=== PATIENT | male | born 1930 | race Caucasian/White ===

== ENCOUNTER 2019-09-18 20:44 | Observation (INO) ==
[2019-09-18 21:38] LABS: Hematocrit (blood only) 33.7 % (42-52); Hemoglobin 11.5 g/dL (14.0-18.0); Mean Corpuscular Hemoglobin 31.7 pg (25-34); Mean Corpuscular Hgb Conc 34.1 g/dL (32-36); Mean Corpuscular Volume 92.8 fL (80-100); Platelet Count 161 K/uL (130-400); RDW Coefficient of Variation 13.4 % (11.5-14.5); RDW Standard Deviation 45.8 fL (36.4-46.3); Red Blood Count 3.63 M/uL (4.7-6.1)
--- NOTE | 2019-09-18 21:47 | XRay Report ---
XR chest 1V portable CLINICAL HISTORY: Chest Pain dyspnea COMPARISON STUDY: No previous studies for comparison. FINDINGS: Mild cardiac enlargement. Mild prominence of the pulmonary vasculature. Potential minimal i nfiltrate left apex and left base. IMPRESSION: Poorly defined left apical and left basilar parenchymal infiltrates. ACT 112: Negative or not required by law. The above report was generated using voice recognition software. It may contain grammatical, syntax or spelling errors. Electronically signed by: Gera Valdez M.D. 09/18/2019 9:46 PM
[2019-09-18 21:54] LABS: Alanine Aminotransferase 27 U/L (12-78); Albumin Level 3.3 gm/dl (3.4-5.0); Aspartate Aminotransferase 28 U/L (15-37); BUN Creatinine Ratio 11.4 (10-20); Blood Urea Nitrogen 19 mg/dl (7-18); Calcium 8.2 mg/dl (8.5-10.1); Carbon Dioxide 25 mmol/L (21-32); Chloride 106 mmol/L (98-107); Creatinine Clr Calc Pharmacy 35.8 ml/min; Est GFR (Non-African American) 36.2; Glucose 140 mg/dl (70-99); Lipase 278 U/L (73-393); Sodium 137 mmol/L (136-145)
[2019-09-18 21:59] LABS: Albumin Globulin Ratio 0.8 (0.9-2); Alkaline Phosphatase 77 U/L (45-117); Bilirubin,Total 0.7 mg/dl (0.2-1); Creatine Kinase 96 U/L (39-308); Creatine Kinase MB 1.1 ng/ml (0.5-3.6); Globulin 4.1 gm/dl (2.5-4.0); NT Pro B Type Natriuretic Pept 2152 pg/ml (0-1800); Total Protein 7.4 gm/dl (6.4-8.2); Troponin I < 0.015 ng/ml (0-0.045)
[2019-09-18 22:08] LABS: INR 2.8 (0.9-1.1); Partial Thromboplastin Ratio 1.7; Prothrombin Time 26.6 Seconds (9.0-12.0)
--- NOTE | 2019-09-18 22:09 | CT Scan Report ---
CT head/brain wo con CT DOSE: 1842.80 mGy.cm HISTORY: evalf for trauma TECHNIQUE: Multiaxial CT images of the head were performed without the use of intravenous contrast. A dose lowering technique was utilized adhering to the principles of ALARA. Comparison: None. Findings: The paranasal sinuses and mastoid air cells are clear. The calvarium and skull base are int act. The ventricles and sulci are within normal limits. There is no mass, hematoma, midline shift, or acute infarct. Impression: No acute intracranial abnormality. ACT 112: Negative or not required by law. The above report was generated using voice recognition software. It may contain grammatical, syntax or spelling errors. Electronically signed by: Gera Valdez M.D. 09/18/2019 10:07 PM
--- NOTE | 2019-09-18 22:16 | Emergency Department Note ---
Entered by Edward Paul acting as a scribe for History of Present Illness General Chief complaint: Fall Stated complaint: WEAKNESS Time Seen by Provider: 09/18/19 20:50 Source: patient and family Limitations: no limitations History of Present Illness Onset (ago): hour(s) 2 Location: head Pain Consistency: + other (episode) Quality: + other (episode) Associated symptoms: + denies other symptoms (diarrhea, back pain, neck pain, black or bloody stools, ), + cough, + weakness (daughter says hes weak. Patient denies weakness) and + other (legs swelling); no chest pain, no fever/chills (fever), no nausea/vomiting and no shortness of breath Treatments prior to arrival: none The patient is a 88 year old male who presents to the Emergency Room with complaints of a fall occurring 2 hours ago. The patient's daughter states the patient fell in the bathroom. She states she went to check on him and he said he was fine. She notes she went back after an hour and forced the door open and found him on the floor. The daughter states the patient was shaking and could not get up on his own because he did not have the strength. The daughter states the patient was on the ground for an hour. She states she is unsure if he hit anything. She states the patient does not have a fever. She notes the patient has not been sick and this is the first time he fell. The patient states he did not injure anything when he fell. He states he was not feeling sick. The patient denies having chills, fevers, urinary symptoms, vomiting, diarrhea, chest pain, SOB, weakness, black or bloody stools, back pain, and neck pain. He states his Warfarin levels were high when they were checked 2 days ago, and notes he has not taken warfarin since. 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 The daughter states the patient's legs are swollen and discolored, but she notes the patient's legs have been swollen for a while. The patient notes he has been coughing a little. He states he follows up with Dr. Jason Vann. Home Medications Home Medications Medication Instructions Recorded Confirmed Type sulfamethoxazole 800 1 tab PO BID #60 tab 08/25/19 09/18/19 Rx mg-trimethoprim 160 mg tablet warfarin 5 mg tablet 5 mg PO DIRECTED tab 08/25/19 09/18/19 History metoprolol tartrate 50 mg tablet 50 mg PO Q12H 30 Days #60 tab 09/12/19 09/18/19 Rx Allergies Allergy/AdvReac Type Severity Reaction Status Date / Time egg Allergy Unknown Verified 09/18/19 21:37 Penicillins Allergy Unknown Verified 09/18/19 21:37 Past Med/Surg History Medical History Anticoagulant long-term use Family History Other Family history non-contributory Social History Preferred Language: Azeri Communication Ability: Effective Feels Safe at Home: Yes Smoking Status: Never smoker Review of Systems See HPI for pertinent positives & negatives. and A total of 10 systems reviewed and were otherwise negative Physical Exam Vital Signs Vital Signs - 24 hr 09/18/19 20:48 09/18/19 22:08 09/18/19 22:53 Temperature 36.7 C Temperature Source Oral Pulse Rate 82 Pulse Rate [Right Finger] 87 86 Pulse Rhythm [Right Finger] Regular Pulse Strength [Right Finger] Normal Respiratory Rate 18 20 20 Respiratory Effort / Characteristics Non-Labored Non-Labored Spontaneous Respiratory Depth Normal Normal Respiratory Pattern Regular Blood Pressure 134/77 Blood Pressure [Left Arm] 159/83 H 125/63 Blood Pressure Mean 96 Blood Pressure Mean [Left Arm] 108 83 Blood Pressure Position Sitting Blood Pressure Position [Left Arm] Sitting Pulse Oximetry 96 95 98 Oxygen Delivery Method Room Air Room Air Sepsis Recent Fever Within 48 Hours No Sepsis New/Unexplained Change in Mental Status No Sepsis Action Taken by Nursing No Action Required 09/19/19 00:15 Temperature Temperature Source Pulse Rate Pulse Rate [Right Finger] 95 H Pulse Rhythm [Right Finger] Regular Pulse Strength [Right Finger] Normal Respiratory Rate 20 Respiratory Effort / Characteristics Non-Labored Spontaneous Respiratory Depth Normal Respiratory Pattern Regular Blood Pressure Blood Pressure [Left Arm] 114/72 Blood Pressure Mean Blood Pressure Mean [Left Arm] 86 Blood Pressure Position Blood Pressure Position [Left Arm] Pulse Oximetry 94 Oxygen Delivery Method Room Air Sepsis Recent Fever Within 48 Hours Sepsis New/Unexplained Change in Mental Status Sepsis Action Taken by Nursing General: Non-ill appearing older male in no acute distress. HEENT: Normal cephalic atraumatic. Pupils are equal round and reactive to light. Extraocular movements are intact. Oropharynx is pink with moist mucous membran es. No swelling of the mouth lips or tongue. Neck: Supple with a midline trachea. No meningeal signs or stiffness, no JVD or bruits. No Stridor. Chest: Clear to auscultation bilaterally. No wheezes or rhonchi. No increased work of breathing. Crackles in bases bilaterally. Heart: regular rate and rhythm. Abdomen: Soft nontender, nondistended without rebound guarding or rigidity. Extremities: No cyanosis clubbing. No calf tenderness or asymmetry. Bilateral pitting edema. Spine/Back. Non tender to palpation. No CVA tenderness Skin: Good turgor without rashes. Neurologic exam: Cranial nerves two through 12 are intact. Motor and sensation are intact and symmetrical throughout. Course Course 2100: The patient was evaluated in room B2, and a complete history and physical examination were performed. 2229: I discussed the patient's case with Dr. Mai - [facility] Hospitalist. He will evaluate the patient for further management Medical Decision Making Differential Diagnosis Differential Diagnosis includes but is not limited to sepsis, syncope, arrhythmia, anemia, trauma, and electrolyte or metabolic abnormality. Medical Records Attestation: I reviewed the patient's medical records. Home Medications Current Medication List: was personally reviewed by me Laboratory Data Attestation: I reviewed the patient's lab results. Result diagrams: 09/18/19 21:20 09/18/19 21:20 Lab Results 09/18/19 09/18/19 09/18/19 Range/Units 20:58 21:20 21:20 WBC 6.70 (4.8-10.8) K/uL RBC 3.63 L (4.7-6.1) M/uL Hgb 11.5 L (14.0-18.0) g/dL Hct 33.7 L (42-52) % MCV 92.8 (80-100) fL MCH 31.7 (25-34) pg MCHC 34.1 (32-36) g/dL RDW Std Deviation 45.8 (36.4-46.3) fL RDW Coeff of Sangeetha 13.4 (11.5-14.5) % Plt Count 161 (130-400) K/uL MPV 10.0 (7.4-10.4) fL Immature Gran % (Auto) 0.4 % Neut % (Auto) 81.6 % Lymph % (Auto) 9.4 % [place] % (Auto) 7.9 % Eos % (Auto) 0.3 % Baso % (Auto) 0.4 % Immature Gran # (Auto) 0.03 H (0.00-0.02) K/uL Neut # (Auto) 5.46 (1.4-6.5) K/uL Lymph # (Auto) 0.63 L (1.2-3.4) K/uL [place] # (Auto) 0.53 (0.11-0.59) K/uL Eos # (Auto) 0.02 (0-0.5) K/uL Baso # (Auto) 0.03 (0-0.2) K/uL PT (9.0-12.0) Seconds INR (0.9-1.1) APTT (21.0-31.0) Seconds PTT Ratio Sodium 137 (136-145) mmol/L Potassium 5.0 (3.5-5.1) mmol/L Chloride 106 (98-107) mmol/L Carbon Dioxide 25 (21-32) mmol/L Anion Gap 6.0 (3-11) BUN 19 H (7-18) mg/dl Creatinine 1.68 H (0.6-1.4) mg/dl Est Cr Clr Drug Dosing 35.8 ml/min Est GFR ( Amer) 42.0 Est GFR (Non-Af Amer) 36.2 BUN/Creatinine Ratio 11.4 (10-20) Glucose 140 H (70-99) mg/dl Calcium 8.2 L (8.5-10.1) mg/dl Magnesium 2.0 (1.8-2.4) mg/dl Total Bilirubin 0.7 (0.2-1) mg/dl AST 28 (15-37) U/L ALT 27 (12-78) U/L Alkaline Phosphatase 77 (45-117) U/L Total Creatine Kinase 96 (39-308) U/L CK-MB (CK-2) 1.1 (0.5-3.6) ng/ml CK/CKMB % Calc 1.1 (0-3.0) Troponin I < 0.015 (0-0.045) ng/ml NT-Pro-B Natriuret Pep 2152 H (0-1800) pg/ml Total Protein 7.4 (6.4-8.2) gm/dl Albumin 3.3 L (3.4-5.0) gm/dl Globulin 4.1 H (2.5-4.0) gm/dl Albumin/Globulin Ratio 0.8 L (0.9-2) Lipase 278 (73-393) U/L Urine Color Dark Yellow Urine Appearance Clear (Clear) Urine pH 7.0 (4.5-7.5) Ur Specific [place] 1.018 (1.000-1.030) Urine Protein 1+ H (Negative) Urine Glucose (UA) Negative (Negative) Urine Ketones Negative (Negative) Urine Blood Negative (Negative) Urine Nitrite Negative (Negative) Urine Bilirubin Negative (Negative) Urine Urobilinogen Negative (Negative) Ur Leukocyte Esterase Trace H (Negative) Urine WBC (Auto) 1-5 (0-5) /hpf Urine RBC (Auto) 5-10 H (0-4) /hpf U Hyaline Cast (Auto) 1-5 (0-5) /lpf U Epithel Cells (Auto) 10-20 H (0-5) /lpf Urine Bacteria (Auto) Negative (Negative) 09/18/19 Range/Units 21:20 WBC (4.8-10.8) K/uL RBC (4.7-6.1) M/uL Hgb (14.0-18.0) g/dL Hct (42-52) % MCV (80-100) fL MCH (25-34) pg MCHC (32-36) g/dL RDW Std Deviation (36.4-46.3) fL RDW Coeff of Sangeetha (11.5-14.5) % Plt Count (130-400) K/uL MPV (7.4-10.4) fL Immature Gran % (Auto) % Neut % (Auto) % Lymph % (Auto) % [place] % (Auto) % Eos % (Auto) % Baso % (Auto) % Immature Gran # (Auto) (0.00-0.02) K/uL Neut # (Auto) (1.4-6.5) K/uL Lymph # (Auto) (1.2-3.4) K/uL [place] # (Auto) (0.11-0.59) K/uL Eos # (Auto) (0-0.5) K/uL Baso # (Auto) (0-0.2) K/uL PT 26.6 H (9.0-12.0) Seconds INR 2.8 H (0.9-1.1) APTT 46.1 H* (21.0-31.0) Seconds PTT Ratio 1.7 Sodium (136-145) mmol/L Potassium (3.5-5.1) mmol/L Chloride (98-107) mmol/L Carbon Dioxide (21-32) mmol/L Anion Gap (3-11) BUN (7-18) mg/dl Creatinine (0.6-1.4) mg/dl Est Cr Clr Drug Dosing ml/min Est GFR ( Amer) Est GFR (Non-Af Amer) BUN/Creatinine Ratio (10-20) Glucose (70-99) mg/dl Calcium (8.5-10.1) mg/dl Magnesium (1.8-2.4) mg/dl Total Bilirubin (0.2-1) mg/dl AST (15-37) U/L ALT (12-78) U/L Alkaline Phosphatase (45-117) U/L Total Creatine Kinase (39-308) U/L CK-MB (CK-2) (0.5-3.6) ng/ml CK/CKMB % Calc (0-3.0) Troponin I (0-0.045) ng/ml NT-Pro-B Natriuret Pep (0-1800) pg/ml Total Protein (6.4-8.2) gm/dl Albumin (3.4-5.0) gm/dl Globulin (2.5-4.0) gm/dl Albumin/Globulin Ratio (0.9-2) Lipase (73-393) U/L Urine Color Urine Appearance (Clear) Urine pH (4.5-7.5) Ur Specific [place] (1.000-1.030) Urine Protein (Negative) Urine Glucose (UA) (Negative) Urine Ketones (Negative) Urine Blood (Negative) Urine Nitrite (Negative) Urine Bilirubin (Negative) Urine Urobilinogen (Negative) Ur Leukocyte Esterase (Negative) Urine WBC (Auto) (0-5) /hpf Urine RBC (Auto) (0-4) /hpf U Hyaline Cast (Auto) (0-5) /lpf U Epithel Cells (Auto) (0-5) /lpf Urine Bacteria (Auto) (Negative) Imaging Data Radiologist's Impression: Radiology results as stated below per my review and the radiologist's interpretation: XR chest 1V portable CLINICAL HISTORY: Chest Pain dyspnea COMPARISON STUDY: No previous studies for comparison. FINDINGS: Mild cardiac enlargement. Mild prominence of the pulmonary vasculature. Potential minimal infiltrate left apex and left base. IMPRESSION: Poorly defined left apical and left basilar parenchymal infiltrates. ACT 112: Negative or not required by law. The above report was generated using voice recognition software. It may contain grammatical, syntax or spelling errors. Electronically signed by: Gera Valdez M.D. 09/18/2019 9:[address] head/brain wo con CT DOSE: 1842.80 mGy.cm HISTORY: evalf for trauma TECHNIQUE: Multiaxial CT images of the head were performed without the use of intravenous contrast. A dose lowering technique was utilized adhering to the principles of ALARA. Comparison: None. Findings: The paranasal sinuses and mastoid air cells are clear. The calvarium and skull base are intact. The ventricles and sulci are within normal limits. There is no mass, hematoma, midline shift, or acute infarct. Impression: No acute intracranial abnormality. ACT 112: Negative or not required by law. The above report was generated using voice recognition software. It may contain grammatical, syntax or spelling errors. Electronically signed by: Gera Valdez M.D. 09/18/2019 10:07 PM ECG Data Attestation: I personally reviewed and interpreted this ECG as follows: Indication: + weakness Rate (beats per minute): 83 Rhythm: + normal sinus ECG Intervals/blocks: + First degree AV block and + Right Bundle branch block ECG ST segments: + Nonspecific ST abnormalities ECG Findings: + Other (Prolonged AR interval at 298 ms. ) Comparison ECG Date: from (06/10/07) Change: the following changes noted (AR interval is significantly prolonged) Blood Pressure Blood Pressure Findings: Elevated blood pressure Blood Pressure Disposition: further management by hospitalist DAYSI Narrative This patient comes in as scribed above he is brought in by ambulance. He was placed in room B2 on a cardiac cath lab radiology technologist. He apparently fell or passed out and was on the floor for about an hour the family had a hard time getting the bathroom and when they did he was weak and could not stand up when EMS arrived he was also weak. He denies that he he has any complaints and downplays everything. His family is is concerned. He has had no recent illness or fever chills or cough. he denies abdominal pain. he denies any trauma to his head. His INR was elevated at 6 on Thursday and has been holding his Coumadin. IV access was established. CAT scan of his head is unremarkable. EKG shows a prolonged AR interval which is significantly prolonged compared to previous. Troponin is negative. His INR is still elevated 2.8 but significantly down from before. He is mildly anemic compared to his hemoglobin 6 years ago. He does have some renal insufficiency as well which is about baseline. He has no neurologic deficits. He does have some peripheral edema as well as his lungs sound a little crackly and I am concerned that he could have a congestive heart failure component as well. His chest x-ray shows some vague haziness in the left side mostly that I think is more chronic clinically does not act like pneumonia. I do think he needs to be admitted/observed. I am concerned that he may have a syncopal episode his AR interval is prolonged and he is been supratherapeutic on INR recently and been weak. I have consulted Dr. Mai to see him ER for these measures. Impression & Plan Weakness, Syncope, Prolonged AR interval, Elevated INR, Bilateral lower extremity edema Discharge Plan Visit Data Chief Complaint: Fall Stated Complaint: WEAKNESS ED Provider: Jose Luis Lomeli Discharge Problem: Weakness, Syncope, Prolonged AR interval, Elevated INR, Bilateral lower extremity edema Patient Disposition: Being Evaluated by Hospitalist Forms Stand Alone Forms: My [facility] [employer] Prescriptions Prescriptions: No Action metoprolol tartrate 50 mg tablet 50 mg PO Q12H 30 Days Qty: 60 RF: 5 warfarin 5 mg tablet 5 mg PO DIRECTED RF: 0 sulfamethoxazole-trimethoprim [Bactrim DS] 800-160 mg tablet 1 tab PO BID Qty: 60 RF: 0 Referrals Referrals: Tyrell Vann PA-C [Primary Care Provider] - Discharge Problem: Syncope Qualifiers: Syncope type: unspecified Qualified Code(s): R55 - Syncope and collapse The scribe's documentation has been prepared under my direction and personally reviewed by me in its entirety. I confirm that the note above accurately reflects all work, treatment, procedures, and medical decision making performed by me.
[2019-09-18 22:34] LABS: Basophils # (auto) 0.03 K/uL (0-0.2); Basophils % (auto) 0.4 %; Eosinophils # (auto) 0.02 K/uL (0-0.5); Eosinophils % (auto) 0.3 %; Immature Granulocytes # (auto) 0.03 K/uL (0.00-0.02); Immature Granulocytes % (auto) 0.4 %; Lymphocytes # (auto) 0.63 K/uL (1.2-3.4); Lymphocytes % (auto) 9.4 %; Monocytes # (auto) 0.53 K/uL (0.11-0.59); Monocytes % (auto) 7.9 %; Neutrophils # (auto) 5.46 K/uL (1.4-6.5); Neutrophils % (auto) 81.6 %
[2019-09-18 22:40] LABS: Partial Thromboplastin Time 46.1 Seconds (21.0-31.0)
[2019-09-18 23:08] LABS: Appearance Urine Clear (Clear); Bacteria Urine Automated Negative (Negative); Bilirubin Urine Negative (Negative); Blood Urine Negative (Negative); Color Urine Dark Yellow; Glucose Urine UA Negative (Negative); Ketones Urine Negative (Negative); Leukocyte Esterase Urine Trace (Negative); Nitrite Urine Negative (Negative); Protein Urine 1+ (Negative); Specific Gravity Urine 1.018 (1.000-1.030); Urobilinogen Urine Negative (Negative)
--- NOTE | 2019-09-19 00:18 | History & Physical Report ---
Date of Service September 18, 2019 Assessment & Plan (1) Weakness: 88-year-old male with a history of atrial fibrillation, DVT/PE presents after a fall tonight at home. Patient has a history of atrial fibrillation controlled with metoprolol. Is uncertain the circumstances fall. Would conside r the possibility of tachyarrhythmia. Showed element of pulmonary edema faint crackles on exam. Will admit to telemetry to observe on monitor and to diuresis. Patient would also benefit from evaluation from physical therapy/Occupational Therapy with possibility of home health needs. Syncope/fall/weakness, question arrhythmia Observe on telemetry PT/OT eval's Discharge planning, assess home needs Pulmonary edema Administer Lasix 20 mg IV, follow I's and O's Consider obtaining echo prior to discharge Diastolic dysfunction in the setting of tachyarrhythmia? History of atrial fibrillation Continue metoprolol, warfarin Recent history of prostatitis Continue Bactrim Recent history of supratherapeutic INR Back in therapeutic range today at 2.8 Patient is recently been on antibiotics explaining labile INR Continue regular dose, follow INR, make adjustments accordingly DVT prophylaxis Hold warfarin CODE STATUS DNR/DNI Diet Heart healthy (2) Syncope: (3) Anticoagulant long-term use: (4) Bilateral lower extremity edema: (5) Elevated INR: (6) Prolonged [place] interval: (7) Urinary incontinence: (8) Elevated PSA: (9) H/O deep venous thrombosis: (10) Atrial fibrillation: History of Present Illness Primary Care Provider: Tyrell Vann PA-C 88-year-old male with a history of atrial fibrillation, DVT/PE presents after a fall tonight at home. The patient does not remember the circumstances of his fall, but his family states that he was in the restroom when they heard a loud sound. When they went to the door, he would not open the door. They called an ambulance and they had to assist him off the floor. The patient denies having any issues with syncope before in the past. He denies any injuries with the fall. He denies any pain at this time. Patient does not have close outpatient follow-up, but sees pulmonology for management of history of DVT/PE. He was recently started on Bactrim for suspected prostatitis. He denies any burning with urination at this time, but he does have some periodic incontinence. His warfarin was being held in the setting of labile INR. The patient states that he is able to take care of himself at home. He handles his finances, he dresses himself, he drives himself. His denies any history of confusion or memory loss. Allergies Allergy/AdvReac Type Severity Reaction Status Date / Time egg Allergy Unknown Verified 09/18/19 21:37 Penicillins Allergy Unknown Verified 09/18/19 21:37 Home Medications Home Medications Medication Instructions Recorded Confirmed Type sulfamethoxazole 800 1 tab PO BID #60 tab 08/25/19 09/18/19 Rx mg-trimethoprim 160 mg tablet warfarin 5 mg tablet 5 mg PO DIRECTED tab 08/25/19 09/18/19 History metoprolol tartrate 50 mg tablet 50 mg PO Q12H 30 Days #60 tab 09/12/19 09/18/19 Rx Past Med/Surg History Medical History Anticoagulant long-term use Family History Other Family history non-contributory Social History Preferred Language: Iranian Communication Ability: Effective Branch Chief Required: No Beliefs That Will Affect Care: None Current Living Situation: Spouse and Family Current Living Situation Comment: lives w/ and dtr Feels Safe at Home: Yes Smoking Status: Former smoker Hx Alcohol Use: No Hx Substance Use: No Review of Systems Constitutional: + weakness; no fever, no chills and no fatigue Ear, Nose, Mouth, Throat: no dizziness, no nasal congestion and no sore throat Respiratory: no cough, no chest congestion and no dyspnea on exertion Cardiovascular: + edema; no chest pain and no palpitations Gastrointestinal: no abdominal pain, no nausea and no vomiting Genitourinary: + urinary incontinence; no dysuria, no urinary frequency and no urinary hesitancy Musculoskeletal: no body aches Physical Exam Constitutional: WD/WN, vitals as above Eyes: PERRL, conjunctivae normal, anicteric sclerae ENMT: external ear and nose normal, oropharynx normal Neck: trachea midline, no thyromegaly Respiratory: normal respiratory effort, lungs clear to auscultation Cardiovascular: RRR, no murmur, no edema Extremities: + edema (+1 BL LE edema ) Gastrointestinal (Abdomen): normal bowel sounds, soft, nontender, no hepatosplenomegaly Musculoskeletal: no cyanosis or clubbing, extremities motor strength 5/5 Skin: no rashes, warm and dry Neurologic: PERRL, EOMI, accommodation nl, no face palsy, no dysarthria Psychiatric: A+Ox3, euthymic affect Results & Data Vital Signs (Past 12 Hours) Vital Signs Temp Pulse Pulse Resp BP BP Pulse Ox 09/18/19 22:53 86 20 125/63 98 09/18/19 22:08 87 20 159/83 H 95 09/18/19 20:48 36.7 C 82 18 134/77 96 Code Status & VTE Plan VTE Prophylaxis Plan VTE Prophylaxis will be ordered: Yes Supervising Physician Co-Signing Physician Notes Patient was seen and examined by me personally. I reviewed the chart, the orders and discussed the case in detail with Dr. Salvador Spivey MD . I read this H&P and agree with its contents to entirety. Resident Activity Tracking Resident Involvement: Resident Care Provided Care Provided: Adult Hospital Medicine (1) Syncope Syncope type: unspecified Qualified Code(s): R55 - Syncope and collapse
[2019-09-19] MEDS ORDERED: POLYETHYLENE (MIRALAX) 17 GM PACK PO PRN (00:41)
[2019-09-19] MEDS ORDERED: ACETAMINOPHEN 325 MG TAB PO PRN (00:41)
[2019-09-19] MEDS ORDERED: WARFARIN SOD 5 MG TAB PO SCH (00:41)
[2019-09-19] MEDS ORDERED: FUROSEMIDE 40 MG/4 ML VIAL IV STA (00:41)
[2019-09-19] MEDS ORDERED: ONDANSETRON INJ 2 MG/ML 2 ML VIAL IV PRN (00:41)
--- NOTE | 2019-09-19 03:56 | Billing Data ---
Date of Service September 18, 2019 Coding Level of Care Code 17993 OBS Care - Level 3
[2019-09-19 07:52] LABS: Basophils # (auto) 0.05 K/uL (0-0.2); Basophils % (auto) 0.8 %; Eosinophils % (auto) 1.7 %; Hematocrit (blood only) 32.4 % (42-52); Hemoglobin 10.8 g/dL (14.0-18.0); Immature Granulocytes # (auto) 0.02 K/uL (0.00-0.02); Immature Granulocytes % (auto) 0.3 %; Lymphocytes % (auto) 18.3 %; Mean Corpuscular Hemoglobin 30.8 pg (25-34); Mean Corpuscular Hgb Conc 33.3 g/dL (32-36); Mean Corpuscular Volume 92.3 fL (80-100); Mean Platelet Volume 9.9 fL (7.4-10.4); Monocytes # (auto) 0.81 K/uL (0.11-0.59); Monocytes % (auto) 13.5 %; Neutrophils # (auto) 3.92 K/uL (1.4-6.5); Neutrophils % (auto) 65.4 %; Platelet Count 167 K/uL (130-400); RDW Coefficient of Variation 13.3 % (11.5-14.5); RDW Standard Deviation 45.2 fL (36.4-46.3); Red Blood Count 3.51 M/uL (4.7-6.1)
[2019-09-19 08:21] LABS: BUN Creatinine Ratio 11.5 (10-20); Calcium 8.6 mg/dl (8.5-10.1); Creatinine Clr Calc Pharmacy 31.9 ml/min; Est GFR (African American) 37.6; Est GFR (Non-African American) 32.5; Potassium 4.2 mmol/L (3.5-5.1)
[2019-09-19] MEDS ORDERED: SULFAMETHOXAZOLE/TRIMETHOPRIM DS 800/160MG TAB PO SCH (09:00)
[2019-09-19] MEDS ORDERED: METOPROLOL TARTRATE 50 MG TAB PO SCH (09:00)
--- NOTE | 2019-09-19 13:42 | Discharge Summary ---
Date of Service September 19, 2019 Admission HPI Per Admitting Provider 88-year-old male with a history of atrial fibrillation, DVT/PE presents after a fall tonight at home. The patient does not remember the circumstances of his fall, but his family states that he was in the restroom when they heard a loud sound. When they went to the door, he would not open the door. They called an ambulance and they had to assist him off the floor. The patient denies having any issues with syncope before in the past. He denies any injuries with the fall. He denies any pain at this time. Patient does not have close outpatient follow-up, but sees pulmonology for management of history of DVT/PE. He was recently started on Bactrim for suspected prostatitis. He denies any burning with urination at this time, but he does have some periodic incontinence. His warfarin was being held in the setting of labile INR. The patient states that he is able to take care of himself at home. He handles his finances, he dresses himself, he drives himself. His denies any history of confusion or memory loss. Principal Diagnosis Syncope Discharge Exam Constitutional WD/WN, vitals as above Eyes PERRL, conjunctivae normal, anicteric sclerae ENMT external ear and nose normal, oropharynx normal Neck trachea midline, no thyromegaly Respiratory normal respiratory effort, lungs clear to auscultation Cardiovascular RRR, no murmur, no edema Gastrointestinal (Abdomen) normal bowel sounds, soft, nontender, no hepatosplenomegaly Musculoskeletal no cyanosis or clubbing, extremities motor strength 5/5 Skin no rashes, warm and dry Neurologic patellar DTR's 2+ bilat, sensation intact and PERRL, EOMI, accommodation nl, no face palsy, no dysarthria Psychiatric A+Ox3, euthymic affect Lymphatic no cervical or axillary lymphadenopathy Discharge Data Allergies Allergy/AdvReac Type Severity Reaction Status Date / Time egg Allergy Unknown Verified 09/18/19 21:37 Penicillins Allergy Unknown Verified 09/18/19 21:37 Consultations 09/18/19 22:36 ED Decision to Admit Stat 09/19/19 00:41 Consult Case Management - Discharge Planning Routine Ordered Studies 09/18/19 21:07 CT head/brain wo con Stat Hospital Course (1) Weakness: participated in PT/OT using a rolling walker he was able to ambulate in the hallway his balance was much better with the support of the waker discussed with he and his that he should use a walker at home provided with script for waker CM arranged home health and home therapy for the patient after discharge (2) Syncope: unclear etiology, it was unwitnessed by any family members seemed to occur around the time the patient was using the restroom, could have been vasovagal event no events while hospitalized echo normal, no arrhythmias on the monitor no signs of infection or electrolyte abnormalities safe to return to home if he would have future events could consider a Holter monitor will use a walker at home (3) Anticoagulant long-term use: continue on discharge (4) Elevated INR: held Coumadin will resume on discharge (5) Prolonged VT interval: no signs of AV block on monitor (6) Urinary incontinence: no major issues while admitted (7) H/O deep venous thrombosis: (8) Atrial fibrillation: no pauses or tachyarrhythmias while admitted Total Time Total Time Spent Total Time Spent (In Minutes): 32 minutes Total Time Includes: Examination of the Patient, Discharge Planning, Medication Reconciliation and Other (discussion with patient's ) Discharge Plan Discharge Items Patient Disposition: Home - Home Health Services Reason For Visit: SYNCOPE, WEAKNESS Discharge Diagnosis: Syncope Condition on Discharge: Good Goals: use rolling walker to help keep you stable and safe follow up with home health and therapy Activity: Resume your previous activity Non-emergency contact: Primary Care Provider Call non-emergency contact if: you have any medication questions and your symptoms worsen Follow-up/Referrals: Tyrell Vann PA-C [Primary Care Provider] - Diet: Regular Addtl Attending Provider Instructions: Medications: no changes, complete the course of Bactrim Syncope, confusion unclear etiology, no signs of infection echocardiogram with no major abnormalities no issues on the tele monitor CT head normal no focal neurological deficits symptoms completely resolved evaluated by therapy, okay to go home with walker will arrange for home health and home therapy FOLLOW UP - call for appt with [facility] in one week Pending Studies at Discharge: No Stand-Alone Forms: [employer], Smoking Cessation Medications and DC Order Prescriptions: Continued metoprolol tartrate 50 mg tablet 50 mg PO Q12H 30 Days Qty: 60 RF: 5 warfarin 5 mg tablet 5 mg PO DIRECTED RF: 0 sulfamethoxazole-trimethoprim [Bactrim DS] 800-160 mg tablet 1 tab PO BID Qty: 60 RF: 0 Discharge Orders: Discharge Order (Routine); Ordered 09/19/19 Ordered By: Hans Ramos Admission Data Admit Date/Time: 09/18/19 23:55 Attending Provider: Hans Ramos Admit Provider: Salvador Spivey Primary Care Provider: Tyrell Vann Other Providers: Efraín Mai ; [facility] Other Interventions: Discharge Summary Assessment (RN) Last Done: 09/19/19 13:52 DC Date/Time DO NOT enter until pt leaves facility: 09/19/19 14:47
--- NOTE | 2019-09-19 15:04 | Electrocardiogram Report ---
Test Reason : Blood Pressure : / mmHG Vent. Rate : 083 BPM Atrial Rate : 083 BPM P-R Int : 298 ms QRS Dur : 136 ms QT Int : 382 ms P-R-T Axes : 020 063 -10 degrees QTc Int : 448 ms Sinus rhythm with 1st degree A-V block Right bundle branch block T wave abnormality, consider inferior ischemia Abnormal ECG When compared with ECG of 10-JUN-2007 12:01, [place] interval has increased Confirmed by Omar Hoyt ([id number]) on 09/19/2019 3:04:05 PM Referred By: REFERRED SELF Confirmed By:Omar Hoyt
== END 2019-09-19 14:47 | disposition home health service (06) ==
LOC: 2N 20:44 → ED 20:44 → SUATTDRO 23:55 → 2N 09-19 00:29

== ENCOUNTER 2022-10-05 15:24 | Inpatient (IN) ==
[2022-10-05] MEDS ORDERED: SODIUM CHLORIDE 0.9% 1000ML 1,000 ML IV SCH (16:15)
[2022-10-05 16:22] LABS: Basophils # (auto) 0.03 K/uL (0-0.2); Basophils % (auto) 0.4 %; Eosinophils # (auto) 0.09 K/uL (0-0.50); Eosinophils % (auto) 1.1 %; Hematocrit (blood only) 34.5 % (40.1-51.0); Hemoglobin 11.9 g/dl (14.0-18.0); Immature Granulocytes # (auto) 0.02 K/uL (0.00-0.02); Immature Granulocytes % (auto) 0.2 %; Lymphocytes # (auto) 1.97 K/uL (1.2-3.4); Lymphocytes % (auto) 23.4 %; Mean Corpuscular Hemoglobin 31.4 pg (25.0-34.0); Mean Corpuscular Hgb Conc 34.5 g/dL (32.0-36.0); Mean Platelet Volume 11.3 fL (9.4-12.4); Monocytes # (auto) 0.74 K/uL (0.24-0.82); Monocytes % (auto) 8.8 %; Neutrophils # (auto) 5.57 K/uL (1.4-6.5); Neutrophils % (auto) 66.1 %; Platelet Count 162 K/uL (130-400); RDW Coefficient of Variation 13.2 % (11.5-14.5); RDW Standard Deviation 44.4 fL (36.4-46.3); Red Blood Count 3.79 M/uL (4.63-6.08); White Blood Count 8.42 K/ul (4.8-10.8)
[2022-10-05 16:41] LABS: Albumin Level 3.8 gm/dl (3.4-5.0); BUN Creatinine Ratio 14.8 (10-20); Bilirubin,Total 0.6 mg/dl (0.2-1.0); Calcium 9.5 mg/dl (8.5-10.1); Creatinine Clr Calc Pharmacy 50.9 ml/min; Est GFR (African American) 70.2 ml/min; Est GFR (Non-African American) 60.5 ml/min; Globulin 3.8 gm/dl (2.5-4.0); Magnesium 2.1 mg/dl (1.7-2.4); Potassium 4.4 mmol/L (3.5-5.1); Total Protein 7.6 gm/dl (6.0-8.3)
--- NOTE | 2022-10-05 16:42 | CT Scan Report ---
CT head/brain wo con CLINICAL HISTORY: 89 years-old Male with confusion. Acutely altered mental status TECHNIQUE: Multiple axial CT images of the head were obtained without contrast. A dose lowering tech nique was utilized adhering to the principles of ALARA. CT DOSE: 691.05 mGy.cm COMPARISON: Head CT 11/01/2019 FINDINGS: No acute intracranial hemorrhage, midline shift, intracranial mass, hydrocephalus, territorial ischem ia or abnormal extra-axial collection. Involutional changes with chronic microvascular ischemic disea se. The calvarium is intact. Partially calcified 1.1 m subcutaneous lesion of the left temporal scalp, li heather benign. The paranasal sinuses, mastoid air cells, and middle ear cavities are clear. IMPRESSION: No acute intracranial abnormality. ACT 112: Negative or not required by law. The above report was generated using voice recognition software. It may contain grammatical, syntax o r spelling errors. Electronically signed by: Raz Jovel M.D. 10/05/2022 4:40 PM
[2022-10-05 16:44] LABS: Troponin I High Sensitivity 29.2 pg/ml (0-20)
--- NOTE | 2022-10-05 16:44 | XRay Report ---
XR chest 1V portable HISTORY: 89 years-old Male confusion acute shortness of breath COMPARISON: Chest radiograph 11/01/2019 TECHNIQUE: AP view the chest FINDINGS: Cardiomediastinal and hilar silhouettes are unchanged. Chronic interstitial coarsening has progressiv delmis worsened within upper lung zone and peripheral predominant distribution. No pneumothorax, large p leural effusion or lobar airspace consolidation. Degenerative changes of the shoulders and spine. 1.2 cm nodular focus of the right lung base. IMPRESSION: 1. No airspace consolidation typical for pneumonia. 2. 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 3. 1.2 cm nodular density of the right lung base. Attention at follow-up recommended to exclude a pul monary nodule. ACT 112: Negative or not required by law. The above report was generated using voice recognition software. It may contain grammatical, syntax o r spelling errors. Electronically signed by: Raz Jovel M.D. 10/05/2022 4:43 PM
[2022-10-05 17:30] LABS: Appearance Urine Turbid (Clear); Bacteria Urine Automated Negative (Negative); Bilirubin Urine Negative (Negative); Blood Urine 3+ (Negative); Color Urine Red; Glucose Urine UA Negative (Negative); Ketones Urine Negative (Negative); Leukocyte Esterase Urine 3+ (Negative); Nitrite Urine Negative (Negative); Urobilinogen Urine Negative (Negative); WBC Urine Automated >30 /hpf (0-5); pH Urine 8.5 (4.5-7.5)
[2022-10-05 17:31] LABS: Protein Urine 2+ (Negative)
[2022-10-05] MEDS ORDERED: cefTRIAXone SODIUM 2,000 MG/70 ML BAG IV STA (18:16)
--- NOTE | 2022-10-05 18:25 | History & Physical Report ---
Date of Service October 05, 2022 Assessment & Plan (1) Acute confusion: (2) Acute UTI (urinary tract infection): Plan: Patient is 89 y/o M with PMH HTN, CKD III, history of PE, anticoagulated on warfarin chronically, chronic anemia, h/o of prostate cancer treated with Lupron, chronic urinary retention with chronic Blanchard, presented to ER with complaint of confusion x 5 days. Blanchrad placed changed on 10/02/22. Denies any noted change in coloration of urine, fever, chills, nausea, vomiting In ER vital stable. No leukocytosis. UA: 3+ blood, 3+ leuk esterase, > 30 WBC, 10-20 epithelial cells Possible underlying UTI. UA possible consistent with UTI, however patient with chronic catheter Urine culture pending In ER given Rocephin Continue Rocephin CBC, BMP in a.m. Currently patient alert and oriented x3 Monitor (3) Urinary retention: Plan: Chronic urinary retention with chronic Blanchard Blanchard last changed on 10/02/2022 Today in ER Blanchard catheter changed (4) Elevated troponin: Plan: High-sensitivity troponin: 29. EKG without acute ST changes compared to EKG from 09/18/2019 Denies chest pain, shortness of breath Trend troponin If troponins uptrending consider echo (5) History of pulmonary embolism: Plan: Chronically anticoagulated on warfarin INR: 2.6 Continue warfarin INR in a.m. (6) Hypertension: Plan: Stable Continue metoprolol tartrate (7) CKD (chronic kidney disease), stage III: Plan: Cr: 1.08. Baseline 1.2-1.3 per outpatient chart review (8) Chronic anemia: Plan: Hgb: 11.9. Baseline~11 per outpatient chart review Monitor H&H DVT Prophylaxis Anticoagulated on warfarin. INR currently supratherapeutic Fall code as per discussion with pt and pt's Follows with Dr Vann for routine care Pt was seen and care coordinated with Dr Russ. See addendum I spent a total of 75 minutes reviewing notes, outpatient records, labs, medication, coordinating, documenting and providing care for this patient excluding time spent in the performance of separately billed services. History of Present Illness Chief Complaint: Weakness Primary Care Provider: Jose Angel Vann DO Patient is 89 y/o M with PMH HTN, CKD III, history of PE, anticoagulated on warfarin chronically, chronic anemia, h/o of prostate cancer treated with Lupron, chronic urinary retention with chronic Blanchard, presented to ER with complaint of confusion x 5 days. History obtained from patient and patient's as well as chart review. reports patient with increased confusion past 5 days. 5 days ago was talking about being "off his schedule" and was talking about thinking he was going to by the end of week because he was so far off his schedule. States he seems more anxious. Patient currently alert and oriented x3. States vaguely remembers talking about this, however states he likes sticking to a daily schedule. Has chronic Blanchard. Last changed on 10/02/22. Denies any noted change in coloration of urine. Today in ER new Blanchard catheter placed. Patient C/O increased burping but denies nausea or vomiting. Denies fever/chills, diaphoresis, N/V/D/C, LION, dizziness, syncope, vision changes, neck pain, CP, SOB, orthopnea, palpitations, cough, sore throat, rhinorrhea, abdominal pain, paresthesias, extremity weakness, falls, extremity edema, rashes Allergies Allergy/AdvReac Type Severity Reaction Status Date / Time Penicillins Allergy Unknown HAPPENED A Verified 10/05/22 18:18 LONG TIME AGO Home Medications Medication Instructions Recorded Confirmed Type warfarin 5 mg tablet 5 mg PO DIRECTED 08/25/19 10/05/22 History metoprolol tartrate 50 mg tablet 50 mg PO Q12H 1 month #60 tabs 09/12/19 10/05/22 Rx Past Med/Surg History Medical History (Updated 10/05/22 @ 20:56 by Janet Lawrence PA-C) Anticoagulant long-term use Atrial fibrillation CKD (chronic kidney disease), stage III H/O deep venous thrombosis History of pulmonary embolism Malignant neoplasm of prostate Prolonged TN interval Urinary incontinence Urinary retention Surgical History History of tonsillectomy Family History Daughter Diabetes Other Family history non-contributory Social History Smoking Status: Former smoker Tobacco Type: Cigarettes Hx Alcohol Use: No Hx Substance Use: No Preferred Language: Cameroonian Communication Ability: Effective Portal Developer Required: No Beliefs That Will Affect Care: None marital status: Current Living Situation: Spouse and Family Current Living Situation Comment: lives w/ and dtr Feels Safe at Home: Yes Assistive Devices: Walker Review of Systems Review of Systems: All systems reviewed & are unremarkable except as noted in HPI & below Physical Exam Physical Exam: General: no acute distress, WDWN Head: normocephalic, atraumatic Eyes: conjunctiva non-injected, anicteric ENT: normal inspection external ears, nose, mucous membranes moist Neck: supple, trachea midline, non-tender Lungs: clear, no respiratory distress, no wheezing/rhonchi/rales CV: RRR, no pretibial edema Abd: normal BS, soft, non-tender, no CVA tenderness Ext: no cyanosis, no calf tenderness Neuro: A&O x 3 currently, no focal deficits noted, normal affect Skin: warm, dry Results & Data Results & Data ([facility]) Vital Signs (Past 12 Hours) Vital Signs Temp Pulse Pulse Resp BP BP Pulse Ox 10/05/22 16:09 64 97 10/05/22 15:34 98 10/05/22 15:34 63 16 124/78 98 10/05/22 15:34 10/05/22 15:34 36.4 C 63 16 124/78 98 O2 Del Method 10/05/22 16:09 10/05/22 15:34 Room Air 10/05/22 15:34 Room Air 10/05/22 15:34 Room Air 10/05/22 15:34 Room Air Laboratory Results Short CBC 10/05/22 Range/Units 15:41 WBC 8.42 (4.8-10.8) K/ul Hgb 11.9 L (14.0-18.0) g/dl Hct 34.5 L (40.1-51.0) % Plt Count 162 (130-400) K/uL BMP 10/05/22 15:41 Sodium 136 Potassium 4.4 Chloride 103 Carbon Dioxide 28 BUN 16 Creatinine 1.08 Glucose 106 H Calcium 9.5 Liver Function 10/05/22 Range/Units 15:41 Total Bilirubin 0.6 (0.2-1.0) mg/dl AST 13 (13-39) U/L ALT 7 (7-52) U/L Alkaline Phosphatase 58 (34-104) U/L Albumin 3.8 (3.4-5.0) gm/dl Urine 10/05/22 Range/Units 17:01 Urine Color Red Urine Appearance Turbid A (Clear) Urine pH 8.5 H (4.5-7.5) Ur Specific [place] 1.010 (1.000-1.030) Urine Protein 2+ H (Negative) Urine Glucose (UA) Negative (Negative) Diagnostic Findings Short CBC 10/05/22 Range/Units 15:41 WBC 8.42 (4.8-10.8) K/ul Hgb 11.9 L (14.0-18.0) g/dl Hct 34.5 L (40.1-51.0) % Plt Count 162 (130-400) K/uL BMP 10/05/22 15:41 Sodium 136 Potassium 4.4 Chloride 103 Carbon Dioxide 28 BUN 16 Creatinine 1.08 Glucose 106 H Calcium 9.5 Liver Function 10/05/22 Range/Units 15:41 Total Bilirubin 0.6 (0.2-1.0) mg/dl AST 13 (13-39) U/L ALT 7 (7-52) U/L Alkaline Phosphatase 58 (34-104) U/L Albumin 3.8 (3.4-5.0) gm/dl Urine 10/05/22 Range/Units 17:01 Urine Color Red Urine Appearance Turbid A (Clear) Urine pH 8.5 H (4.5-7.5) Ur Specific [place] 1.010 (1.000-1.030) Urine Protein 2+ H (Negative) Urine Glucose (UA) Negative (Negative) ECG Rate (beats per minute): 68 Rhythm: sinus rhythm Findings: + 1st degree AV block, + RBBB and + T-wave inversion (Inferior) Comparison ECG Date: from (09/18/2019: no significant change) Supervising Physician Co-Signing Physician Notes Date of Service: October 05, 2022 History and physical exam performed by me. History notable for 89-year-old who was brought in for altered mental status for the past week. History provided by reported that he has been confused for the last couple of days. Had his Blanchard catheter changed on 02 October 2022. No fevers, chills, flank pain, abdominal pain, hematuria reported. No reports of cough, chest pain or shortness of breath. Exam notable for elderly man in no distress alert and oriented to person place and time does not appear confused at this time. No CVA tenderness Labs notable for mild troponin elevation 29.2, UA suggestive of UTI with 3+ leukocyte esterase and more than [address] head did not show any obvious abnormalities Altered mental status likely due to UTI. Blanchard was changed in ER. Continue ceftriaxone started in ER for now follow-up urine culture. Get EKG. Trend troponin. Telemetry monitoring Other plans as detailed by Janet Lawrence PA-C
[2022-10-05 18:46] LABS: INR 2.6 (0.9-1.1); Prothrombin Time 26.7 Seconds (9.0-12.0)
--- NOTE | 2022-10-05 20:05 | Communication Note ---
Date of Service: October 05, 2022 History and physical exam performed by me. History notable for 89-year-old who was brought in for altered mental status for the past week. History provided by reported that he has been confused for the last couple of days. Had his Blanchard catheter changed on 02 October 2022. No fevers, chills, flank pain, abdominal pain, hematuria reported. No reports of cough, chest pain or shortness of breath. Exam notable for elderly man in no distress alert and oriented to person place and time does not appear confused at this time. No CVA tenderness Labs notable for mild troponin elevation 29.2, UA suggestive of UTI with 3+ leukocyte esterase and more than [address] head did not show any obvious abnormalities Altered mental status likely due to UTI. Blanchard was changed in ER. Continue ceftriaxone started in ER for now follow-up urine culture. Get EKG. Trend troponin. Telemetry monitoring Other plans as detailed by TRINY Kendall
--- NOTE | 2022-10-05 20:10 | Emergency Department Note ---
Impression & Plan Acute confusion, Acute UTI (urinary tract infection), Elevated troponin ED Provider Note INFORMANT: Patient and ED PROVIDER(S): Yousif Gonzalez MD CHIEF COMPLAINT: Confusion PLAN: Disposition: Admitted Condition: Good Outpatient prescription management: none Referral: None MEDICAL DECISION MAKING: Patient presented because of acute confusion. He has an indwelling Blanchard catheter. Prior records were reviewed and the patient has had urinary tract infections in the past but none in the recent year. He underwent head CT imaging and this was thankfully negative. Chest x-ray did not reveal any acute pathology. Chronic changes noted. Patient CBC and chemistry panel were unremarkable. Urinalysis is concerning for infection. The patient did have an elevated troponin. There were no acute ischemic changes noted on ECG. Patient was given IV Rocephin. The management will be necessary in the hospital. Patient and were in agreement. Consultation was made with the [facility] Hospitalist service. Patient was evaluated in the ER by the team and admitted for further management. Triage Nursing notes reviewed and agree them. Vital Signs: reviewed and remarkable for no significant abnormalities Differential diagnosis: Infection, hypoglycemia, electrolyte abnormalities, overdose, toxicologic, cardiac sources, intracerebral event, neurologic, trauma, as well as other pathologies. Diagnostics, as interpreted by me: ECG: Lead ECG reveals a sinus rhythm with first-degree AV block at 60 bpm. Righ t bundle branch block present. Inferior T wave inversions present. When compared to November 01, 2019 there is no significant change. Cardiac Monitoring: Cardiac monitoring ordered by me: The patient was placed on continuous cardiac monitoring and observed. It revealed a normal sinus rhythm at 63 beats per minute without ectopy or evidence of dysrhythmia. Medical decision rules: none Imaging studies: Head CT: A noncontrast CT scan of the head was performed and was negative for tumor, fracture, intracranial hemorrhage, or other acute pathology. Chest x-ray. Findings: A chest x-ray was performed and revealed no pneumothorax, effusion, infiltrate, pulmonary edema, free air under the diaphragm, or wide mediastinum. Chronic fibrotic changes present. Impression: No acute disease. HPI: The patient is a 89year old male who presents to the Emergency Room with complaints of confusion. This started over the last several days, approximately 5, and is persisting. History is confirmed by the patient's . The patient also notes the following associated symptoms, anxiety and weakness. The patient has been prescribed no medication for relieving factors. Current pain is rated as 0/10. Patient does have a chronic indwelling Blanchard catheter. does note that there has been some foul smell to the urine. Pt denies LOC, headache, fevers, chills, diaphoresis, visual changes, neck pain, chest pain, breathing difficulties, nausea, vomiting, abdominal pain, back pain, melena, hematochezia,numbness, lymphadenopathy, rash, or other complaints. PAST MEDICAL HISTORY: See Below, UTI, A. fib PAST SURGICAL HISTORY: See Below, SOCIAL HISTORY: See Below, HOME MEDICATIONS: See Below ALLERGIES: See Below VITALS: See Below PHYSICAL EXAMINATION: GENERAL: Awake, alert, nontoxic-appearing, in no distress HENT: Normocephalic, atraumatic. Oropharynx unremarkable. EYES: Normal conjunctiva. Sclera non-icteric. PERRL NECK: Inspection normal. Non-tender. Supple. No nuchal rigidity. FROM. No masses. RESPIRATORY: Clear to auscultation. No wheezes. No rales. Normal respiratory effort. CARDIAC: Normal rate. Normal rhythm. No murmurs. No rubs. Extremities warm and well perfused. Pulses equal. No JVD. GI: Soft, non-distended. No tenderness to palpation. No rebound or guarding. No masses. : Blanchard catheter present. MUSCULOSKELETAL: Atraumatic. Chest examination reveals no tenderness. The back is symmetrical on inspection without obvious abnormality. There is no CVA tenderness to palpation. No joint edema. LOWER EXTREMITIES: Calves are equal size bilaterally and non-tender. No edema. No discoloration. NEURO: Minimally confused but relatively normal sensorium. No focal sensory or motor deficits noted. SKIN: No rash or jaundice noted. Past Med/Surg History Medical History (Updated 10/05/22 @ 20:56 by Janet Lawrence PA-C) Anticoagulant long-term use Atrial fibrillation CKD (chronic kidney disease), stage III H/O deep venous thrombosis History of pulmonary embolism Malignant neoplasm of prostate Prolonged CT interval Urinary incontinence Urinary retention Surgical History History of tonsillectomy Family History Daughter Diabetes Other Family history non-contributory Social History Smoking Status: Former smoker Tobacco Type: Cigarettes Hx Alcohol Use: No Hx Substance Use: No Preferred Language: Estonian Communication Ability: Effective Burlap Bag Sewer Required: No Beliefs That Will Affect Care: None marital status: Current Living Situation: Spouse and Family Current Living Situation Comment: lives w/ and dtr Feels Safe at Home: Yes Assistive Devices: Walker Allergies Allergies Allergy/AdvReac Type Severity Reaction Status Date / Time Penicillins Allergy Unknown HAPPENED A Verified 10/05/22 18:18 LONG TIME AGO Home Meds Home Medications Medication Instructions Recorded Confirmed warfarin 5 mg tablet 5 mg PO DIRECTED 08/25/19 10/05/22 Previous Rx's Medication Instructions Recorded metoprolol tartrate 50 mg tablet 50 mg PO Q12H 1 month #60 tabs 09/12/19 Results & Data (ED) Vital Signs Vital Signs - 24 hr 10/05/22 15:34 10/05/22 15:34 10/05/22 15:34 Temperature 36.4 C Temperature Source Oral Pulse Rate 63 Pulse Rate [Apical] 63 Pulse Rhythm Regular Pulse Rhythm [Apical] Regular Pulse Strength Normal Pulse Strength [Apical] Normal Respiratory Rate 16 16 Respiratory Effort / Characteristics Non-Labored Non-Labored Respiratory Depth Normal Normal Respiratory Pattern Regular Regular Blood Pressure 124/78 Blood Pressure [Right Arm] 124/78 Blood Pressure Mean 93 Blood Pressure Mean [Right Arm] 93 Blood Pressure Position Lying Blood Pressure Position [Right Arm] Lying Pulse Oximetry 98 98 Oxygen Delivery Method Room Air Room Air Room Air Sepsis Recent Fever Within 48 Hours No Sepsis New/Unexplained Change in Mental Status No Sepsis Action Taken by Nursing No Action Required 10/05/22 15:34 10/05/22 16:09 10/05/22 19:08 Temperature Temperature Source Pulse Rate 64 Pulse Rate [Apical] 63 Pulse Rhythm Pulse Rhythm [Apical] Pulse Strength Pulse Strength [Apical] Respiratory Rate 18 Respiratory Effort / Characteristics Respiratory Depth Respiratory Pattern Blood Pressure Blood Pressure [Right Arm] 163/83 H Blood Pressure Mean Blood Pressure Mean [Right Arm] 109 Blood Pressure Position Blood Pressure Position [Right Arm] Pulse Oximetry 98 97 Oxygen Delivery Method Room Air Sepsis Recent Fever Within 48 Hours Sepsis New/Unexplained Change in Mental Status Sepsis Action Taken by Nursing Laboratory Data 10/05/22 15:41 10/05/22 15:41 Lab Results 10/05/22 10/05/22 10/05/22 Range/Units 15:37 15:41 15:41 WBC 8.42 (4.8-10.8) K/ul RBC 3.79 L (4.63-6.08) M/uL Hgb 11.9 L (14.0-18.0) g/dl Hct 34.5 L (40.1-51.0) % MCV 91.0 (80.0-100.0) fL MCH 31.4 (25.0-34.0) pg MCHC 34.5 (32.0-36.0) g/dL RDW Std Deviation 44.4 (36.4-46.3) fL RDW Coeff of Sangeetha 13.2 (11.5-14.5) % Plt Count 162 (130-400) K/uL MPV 11.3 (9.4-12.4) fL Immature Gran % (Auto) 0.2 % Neut % (Auto) 66.1 % Lymph % (Auto) 23.4 % Mcnairy % (Auto) 8.8 % Eos % (Auto) 1.1 % Baso % (Auto) 0.4 % Neut # (Auto) 5.57 (1.4-6.5) K/uL Lymph # (Auto) 1.97 (1.2-3.4) K/uL Mcnairy # (Auto) 0.74 (0.24-0.82) K/uL Eos # (Auto) 0.09 (0-0.50) K/uL Baso # (Auto) 0.03 (0-0.2) K/uL Immature Gran # (Auto) 0.02 (0.00-0.02) K/uL PT (9.0-12.0) Seconds INR (0.9-1.1) Sodium 136 (136-145) mmol/L Potassium 4.4 (3.5-5.1) mmol/L Chloride 103 (98-107) mmol/L Carbon Dioxide 28 (21-32) mmol/L Anion Gap 5 (3-11) BUN 16 (6-23) mg/dl Creatinine 1.08 (0.6-1.4) mg/dl Est Cr Clr Drug Dosing 50.9 ml/min Est GFR ( Amer) 70.2 ml/min Est GFR (Non-Af Amer) 60.5 ml/min BUN/Creatinine Ratio 14.8 (10-20) Glucose 106 H (70-99(Fasting)) mg/dl POC Glucose 111 H (70-99) mg/dl Calcium 9.5 (8.5-10.1) mg/dl Magnesium 2.1 (1.7-2.4) mg/dl Total Bilirubin 0.6 (0.2-1.0) mg/dl AST 13 (13-39) U/L ALT 7 (7-52) U/L Alkaline Phosphatase 58 (34-104) U/L Troponin I High Sens 29.2 H (0-20) pg/ml Total Protein 7.6 (6.0-8.3) gm/dl Albumin 3.8 (3.4-5.0) gm/dl Globulin 3.8 (2.5-4.0) gm/dl Albumin/Globulin Ratio 1.0 (0.9-2) TSH (0.300-4.500) uIu/ml Urine Color Urine Appearance (Clear) Urine pH (4.5-7.5) Ur Specific [place] (1.000-1.030) Urine Protein (Negative) Urine Glucose (UA) (Negative) Urine Ketones (Negative) Urine Blood (Negative) Urine Nitrite (Negative) Urine Bilirubin (Negative) Urine Urobilinogen (Negative) Ur Leukocyte Esterase (Negative) Urine WBC (Auto) (0-5) /hpf Urine RBC (Auto) U Hyaline Cast (Auto) (0-5) /lpf U Epithel Cells (Auto) (0-5) /lpf Urine Bacteria (Auto) (Negative) Urine Yeast (None Prsent) SARS-CoV-2, RNA, NAAT (NEGATIVE) 10/05/22 10/05/22 10/05/22 Range/Units 15:41 15:41 17:01 WBC (4.8-10.8) K/ul RBC (4.63-6.08) M/uL Hgb (14.0-18.0) g/dl Hct (40.1-51.0) % MCV (80.0-100.0) fL MCH (25.0-34.0) pg MCHC (32.0-36.0) g/dL RDW Std Deviation (36.4-46.3) fL RDW Coeff of Sangeetha (11.5-14.5) % Plt Count (130-400) K/uL MPV (9.4-12.4) fL Immature Gran % (Auto) % Neut % (Auto) % Lymph % (Auto) % Mcnairy % (Auto) % Eos % (Auto) % Baso % (Auto) % Neut # (Auto) (1.4-6.5) K/uL Lymph # (Auto) (1.2-3.4) K/uL Mcnairy # (Auto) (0.24-0.82) K/uL Eos # (Auto) (0-0.50) K/uL Baso # (Auto) (0-0.2) K/uL Immature Gran # (Auto) (0.00-0.02) K/uL PT 26.7 H (9.0-12.0) Seconds INR 2.6 H (0.9-1.1) Sodium (136-145) mmol/L Potassium (3.5-5.1) mmol/L Chloride (98-107) mmol/L Carbon Dioxide (21-32) mmol/L Anion Gap (3-11) BUN (6-23) mg/dl Creatinine (0.6-1.4) mg/dl Est Cr Clr Drug Dosing ml/min Est GFR ( Amer) ml/min Est GFR (Non-Af Amer) ml/min BUN/Creatinine Ratio (10-20) Glucose (70-99(Fasting)) mg/dl POC Glucose (70-99) mg/dl Calcium (8.5-10.1) mg/dl Magnesium (1.7-2.4) mg/dl Total Bilirubin (0.2-1.0) mg/dl AST (13-39) U/L ALT (7-52) U/L Alkaline Phosphatase (34-104) U/L Troponin I High Sens (0-20) pg/ml Total Protein (6.0-8.3) gm/dl Albumin (3.4-5.0) gm/dl Globulin (2.5-4.0) gm/dl Albumin/Globulin Ratio (0.9-2) TSH 2.184 (0.300-4.500) uIu/ml Urine Color Red Urine Appearance Turbid A (Clear) Urine pH 8.5 H (4.5-7.5) Ur Specific [place] 1.010 (1.000-1.030) Urine Protein 2+ H (Negative) Urine Glucose (UA) Negative (Negative) Urine Ketones Negative (Negative) Urine Blood 3+ H (Negative) Urine Nitrite Negative (Negative) Urine Bilirubin Negative (Negative) Urine Urobilinogen Negative (Negative) Ur Leukocyte Esterase 3+ H (Negative) Urine WBC (Auto) >30 H (0-5) /hpf Urine RBC (Auto) Not Reportable U Hyaline Cast (Auto) (0-5) /lpf U Epithel Cells (Auto) 10-20 H (0-5) /lpf Urine Bacteria (Auto) Negative (Negative) Urine Yeast (None Prsent) SARS-CoV-2, RNA, NAAT (NEGATIVE) 10/05/22 Range/Units 17:01 WBC (4.8-10.8) K/ul RBC (4.63-6.08) M/uL Hgb (14.0-18.0) g/dl Hct (40.1-51.0) % MCV (80.0-100.0) fL MCH (25.0-34.0) pg MCHC (32.0-36.0) g/dL RDW Std Deviation (36.4-46.3) fL RDW Coeff of Sangeetha (11.5-14.5) % Plt Count (130-400) K/uL MPV (9.4-12.4) fL Immature Gran % (Auto) % Neut % (Auto) % Lymph % (Auto) % [place]nairy % (Auto) % Eos % (Auto) % Baso % (Auto) % Neut # (Auto) (1.4-6.5) K/uL Lymph # (Auto) (1.2-3.4) K/uL [place] # (Auto) (0.24-0.82) K/uL Eos # (Auto) (0-0.50) K/uL Baso # (Auto) (0-0.2) K/uL Immature Gran # (Auto) (0.00-0.02) K/uL PT (9.0-12.0) Seconds INR (0.9-1.1) Sodium (136-145) mmol/L Potassium (3.5-5.1) mmol/L Chloride (98-107) mmol/L Carbon Dioxide (21-32) mmol/L Anion Gap (3-11) BUN (6-23) mg/dl Creatinine (0.6-1.4) mg/dl Est Cr Clr Drug Dosing ml/min Est GFR ( Amer) ml/min Est GFR (Non-Af Amer) ml/min BUN/Creatinine Ratio (10-20) Glucose (70-99(Fasting)) mg/dl POC Glucose (70-99) mg/dl Calcium (8.5-10.1) mg/dl Magnesium (1.7-2.4) mg/dl Total Bilirubin (0.2-1.0) mg/dl AST (13-39) U/L ALT (7-52) U/L Alkaline Phosphatase (34-104) U/L Troponin I High Sens (0-20) pg/ml Total Protein (6.0-8.3) gm/dl Albumin (3.4-5.0) gm/dl Globulin (2.5-4.0) gm/dl Albumin/Globulin Ratio (0.9-2) TSH (0.300-4.500) uIu/ml Urine Color Urine Appearance (Clear) Urine pH (4.5-7.5) Ur Specific [place] (1.000-1.030) Urine Protein (Negative) Urine Glucose (UA) (Negative) Urine Ketones (Negative) Urine Blood (Negative) Urine Nitrite (Negative) Urine Bilirubin (Negative) Urine Urobilinogen (Negative) Ur Leukocyte Esterase (Negative) Urine WBC (Auto) (0-5) /hpf Urine RBC (Auto) U Hyaline Cast (Auto) (0-5) /lpf U Epithel Cells (Auto) (0-5) /lpf Urine Bacteria (Auto) (Negative) Urine Yeast (None Prsent) SARS-CoV-2, RNA, NAAT NEGATIVE (NEGATIVE) Administered Medications Sodium Chloride (Nss 1000ml) 1,000 mls @ 125 mls/hr IV .Q8H SHAREE Stop: 10/06/22 00:14 Last Admin: 10/05/22 16:31 Dose: 125 mls/hr Documented By: EVANGELIST Discontinued Medications Ceftriaxone Sodium (Rocephin) 2,000 mg in 70 mls @ 140 mls/hr IV NOW STA Stop: 10/05/22 18:45 Last Infusion: 10/05/22 19:34 Dose: 0 mls/hr Documented By: Admin: 10/05/22 18:43 Dose: 140 mls/hr Documented By: ANDRES Imaging Data Radiologist's Impression: Head CT 10/05/22 16:08 CT head/brain wo con CLINICAL HISTORY: 89 years-old Male with confusion. Acutely altered mental status TECHNIQUE: Multiple axial CT images of the head were obtained without contrast. A dose lowering technique was utilized adhering to the principles of ALARA. CT DOSE: 691.05 mGy.cm COMPARISON: Head CT 11/01/2019 FINDINGS: No acute intracranial hemorrhage, midline shift, intracranial mass, hydrocephalus, territorial ischemia or abnormal extra-axial collection. Involutional changes with chronic microvascular ischemic disease. The calvarium is intact. Partially calcified 1.1 m subcutaneous lesion of the left temporal scalp, likely benign. The paranasal sinuses, mastoid air cells, and middle ear cavities are clear. IMPRESSION: No acute intracranial abnormality. ACT 112: Negative or not required by law. The above report was generated using voice recognition software. It may contain grammatical, syntax or spelling errors. Electronically signed by: Raz Jovel M.D. 10/05/2022 4:40 PM Chest X-Ray 10/05/22 16:09 XR chest 1V portable HISTORY: 89 years-old Male confusion acute shortness of breath COMPARISON: Chest radiograph 11/01/2019 TECHNIQUE: AP view the chest FINDINGS: Cardiomediastinal and hilar silhouettes are unchanged. Chronic interstitial coarsening has progressively worsened within upper lung zone and peripheral predominant distribution. No pneumothorax, large pleural effusion or lobar air space consolidation. Degenerative changes of the shoulders and spine. 1.2 cm nodular focus of the right lung base. IMPRESSION: 1. No airspace consolidation typical for pneumonia. 2. 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 3. 1.2 cm nodular density of the right lung base. Attention at follow-up recommended to exclude a pulmonary nodule. ACT 112: Negative or not required by law. The above report was generated using voice recognition software. It may contain grammatical, syntax or spelling errors. Electronically signed by: Raz Jovel M.D. 10/05/2022 4:43 PM Discharge Plan Visit Data Chief Complaint: Weakness Stated Complaint: WEAKNESS, CONFUSION ED Provider: Yousif Gonzalez Discharge Problem: Acute confusion, Acute UTI (urinary tract infection), Elevated troponin Forms Stand Alone Forms: [facility] [place] [facility] Prescriptions Prescriptions: No Action metoprolol tartrate 50 mg tablet 50 mg PO Q12H 30 Days Qty: 60 5RF warfarin 5 mg tablet 5 mg PO DIRECTED Protocol: Dose Management Protocol Text: Patient Instructed to take: warfarin 5 mg (1 Tab) on COUGHLIN, MO, , , , FR, SA Rx Instructions: 10mg on Tu, Sat. 5mg on thu, thu, thu, , fri Referrals Referrals: Jose Angel Vann DO [Primary Care Provider] -
[2022-10-05] MEDS ORDERED: POLYETHYLENE (MIRALAX) 17 GM PACK PO PRN (21:18)
[2022-10-05] MEDS ORDERED: ACETAMINOPHEN 325 MG TAB PO PRN (21:18)
[2022-10-05] MEDS ORDERED: ONDANSETRON INJ 2 MG/ML 2 ML VIAL IV PRN (21:18)
[2022-10-05] MEDS: WARFARIN SOD 5 MG TAB PO SCH (22:02)
[2022-10-05] MEDS: METOPROLOL TARTRATE 50 MG TAB PO SCH (22:03)
[2022-10-06 03:57] LABS: Hematocrit (blood only) 31.9 % (40.1-51.0); Hemoglobin 11.3 g/dl (14.0-18.0); Mean Corpuscular Hemoglobin 31.7 pg (25.0-34.0); Mean Corpuscular Hgb Conc 35.4 g/dL (32.0-36.0); Mean Corpuscular Volume 89.6 fL (80.0-100.0); Platelet Count 157 K/uL (130-400); RDW Coefficient of Variation 13.2 % (11.5-14.5); RDW Standard Deviation 43.5 fL (36.4-46.3); Red Blood Count 3.56 M/uL (4.63-6.08); White Blood Count 7.74 K/ul (4.8-10.8)
[2022-10-06 04:08] LABS: INR 2.8 (0.9-1.1); Prothrombin Time 27.9 Seconds (9.0-12.0)
[2022-10-06 04:16] LABS: Calcium 8.9 mg/dl (8.5-10.1); Potassium 4.2 mmol/L (3.5-5.1)
[2022-10-06 04:21] LABS: BUN Creatinine Ratio 13.1 (10-20); Creatinine Clr Calc Pharmacy 52.2 ml/min; Est GFR (African American) 77.9 ml/min; Est GFR (Non-African American) 67.2 ml/min
[2022-10-06] MEDS: METOPROLOL TARTRATE 50 MG TAB PO SCH ×2 (08:37→20:13)
[2022-10-06] MEDS: cefTRIAXone SODIUM 2,000 MG in DEXTROSE 5% 50 ML IV SCH (08:37)
--- NOTE | 2022-10-06 09:51 | Electrocardiogram Report ---
Test Reason : Blood Pressure : / mmHG Vent. Rate : 068 BPM Atrial Rate : 068 BPM P-R Int : 362 ms QRS Dur : 134 ms QT Int : 440 ms P-R-T Axes : 080 024 -21 degrees QTc Int : 467 ms Sinus rhythm with 1st degree A-V block Right bundle branch block T wave abnormality, consider inferior ischemia Abnormal ECG When compared with ECG of 01-NOV-2019 11:02, No significant change was found Confirmed by Eb Blue ([id number]) on 10/06/2022 9:50:29 AM Referred By: REFERRED SELF Confirmed By:Hans Blue
--- NOTE | 2022-10-06 11:09 | Hospitalist Progress Note ---
Date of Service October 06, 2022 Assessment & Plan (1) Acute confusion: (2) Acute UTI (urinary tract infection): Plan: 89 y/o M with PMH HTN, CKD III, history of PE, anticoagulated on warfarin chronically, chronic anemia, h/o of prostate cancer treated with Lupron, chronic urinary retention with chronic Blanchard, presented to ER with complaint of confusion x 5 days. Blanchard placed changed on 10/02/22. Denies any noted change in coloration of urine, fever, chills, nausea, vomiting In ER vital stable. No leukocytosis. UA: 3+ blood, 3+ leuk esterase, > 30 WBC, 10-20 epithelial cells UA possible consistent with UTI, however patient with chronic catheter Possible UTI due to chronic catheter associated with metabolic encephalopathy Follow up urine culture Continue ceftriaxone Monitor CT head did not show any acute abnormalities Get PT/OT eval (3) Urinary retention: Plan: Urinary retention with chronic Blanchard Blanchard last changed on 10/02/2022 prior to admisson Changed again in ER on admission 10/05/22 (4) Elevated troponin: Plan: High-sensitivity troponin: 29. EKG similar to previous Denies chest pain, shortness of breath Trop trend 29->32->38 Reviewed old Echo Tele monitor (5) History of pulmonary embolism: Plan: Chronically anticoagulated on warfarin INR: 2.8 Continue warfarin (6) Hypertension: Plan: Stable Continue metoprolol tartrate (7) CKD (chronic kidney disease), stage III: Plan: Cr: 0.99 . Baseline 1.2-1.3 per outpatient chart review (8) Chronic anemia: Plan: Hgb: 11.3. Baseline~11 per outpatient chart review Monitor H&H DVT Prophylaxis Anticoagulated on warfarin. Fall code as per discussion with pt and pt's Follows with Dr Vann for routine care Admission and Anticipated Discharge Date Admission Date: October 05, 2022 Subjective Patient seen and examined Alert and oriented to person, place, month and year Currently denied any new complaints Reports some weakness Denied any nausea, vomiting,abd pain, diarrhea Denied flank pain, fever, chills Denied chest pain, cough, shortness of breath Physical Exam Constitutional: + well hydrated; no acute distress Elderly man Eyes: PERRL, conjunctivae normal, anicteric sclerae ENMT: external ear and nose normal, oropharynx normal Respiratory: normal respiratory effort, lungs clear to auscultation Cardiovascular: Rate/Rhythm: regular rate and regular rhythm S1 S2 Gastrointestinal (Abdomen): normal bowel sounds, soft, nontender, no hepatosplenomegaly Musculoskeletal: No pedal edema Neurologic: PERRL, EOMI, accommodation nl, no face palsy, no dysarthria Genitourinary: Blanchard in situ Results & Data Results & Data ([facility]) Vital Signs (Past 12 Hours) Vital Signs Temp Pulse Pulse Resp BP Pulse Ox O2 Del Method 10/06/22 07:00 50 L 10/06/22 07:15 36.6 C 67 18 131/72 96 Room Air 10/06/22 04:18 36.5 C 60 18 127/73 99 Room Air 10/05/22 23:10 63 Laboratory Results Abnormal lab results 10/05/22 10/05/22 10/05/22 Range/Units 15:37 15:41 15:41 RBC 3.79 L (4.63-6.08) M/uL Hgb 11.9 L (14.0-18.0) g/dl Hct 34.5 L (40.1-51.0) % PT (9.0-12.0) Seconds INR (0.9-1.1) Glucose 106 H (70-99(Fasting)) mg/dl POC Glucose 111 H (70-99) mg/dl Troponin I High Sens 29.2 H (0-20) pg/ml Urine Appearance (Clear) Urine pH (4.5-7.5) Urine Protein (Negative) Urine Blood (Negative) Ur Leukocyte Esterase (Negative) Urine WBC (Auto) (0-5) /hpf U Epithel Cells (Auto) (0-5) /lpf 10/05/22 10/05/22 10/05/22 Range/Units 15:41 17:01 21:41 RBC (4.63-6.08) M/uL Hgb (14.0-18.0) g/dl Hct (40.1-51.0) % PT 26.7 H (9.0-12.0) Seconds INR 2.6 H (0.9-1.1) Glucose (70-99(Fasting)) mg/dl POC Glucose (70-99) mg/dl Troponin I High Sens 32.1 H (0-20) pg/ml Urine Appearance Turbid A (Clear) Urine pH 8.5 H (4.5-7.5) Urine Protein 2+ H (Negative) Urine Blood 3+ H (Negative) Ur Leukocyte Esterase 3+ H (Negative) Urine WBC (Auto) >30 H (0-5) /hpf U Epithel Cells (Auto) 10-20 H (0-5) /lpf 10/06/22 10/06/22 10/06/22 Range/Units 03:47 03:47 03:47 RBC 3.56 L (4.63-6.08) M/uL Hgb 11.3 L (14.0-18.0) g/dl Hct 31.9 L (40.1-51.0) % PT 27.9 H (9.0-12.0) Seconds INR 2.8 H (0.9-1.1) Glucose (70-99(Fasting)) mg/dl POC Glucose (70-99) mg/dl Troponin I High Sens 38.3 H (0-20) pg/ml Urine Appearance (Clear) Urine pH (4.5-7.5) Urine Protein (Negative) Urine Blood (Negative) Ur Leukocyte Esterase (Negative) Urine WBC (Auto) (0-5) /hpf U Epithel Cells (Auto) (0-5) /lpf
[2022-10-06] MEDS: WARFARIN SOD 5 MG TAB PO SCH (17:34)
--- NOTE | 2022-10-06 18:20 | Electrocardiogram Report ---
Test Reason : Blood Pressure : / mmHG Vent. Rate : 059 BPM Atrial Rate : 056 BPM P-R Int : 000 ms QRS Dur : 136 ms QT Int : 478 ms P-R-T Axes : 000 048 -14 degrees QTc Int : 473 ms Sinus rhythm with 1st degree AV block Right bundle branch block Septal infarct , age undetermined T wave abnormality, consider inferior ischemia Abnormal ECG Confirmed by Eb Blue ([id number]) on 10/06/2022 6:20:24 PM Referred By: REFERRED SELF Confirmed By:Hans Blue
[2022-10-06] MEDS ORDERED: MELATONIN 3 MG TAB PO PRN (23:38)
[2022-10-06] MEDS ORDERED: MELATONIN 3 MG TAB PO ONE (23:45)
[2022-10-07 07:24] LABS: Hematocrit (blood only) 34.4 % (40.1-51.0); Hemoglobin 11.8 g/dl (14.0-18.0); Mean Corpuscular Hemoglobin 31.6 pg (25.0-34.0); Mean Corpuscular Hgb Conc 34.3 g/dL (32.0-36.0); Mean Platelet Volume 11.1 fL (9.4-12.4); Platelet Count 177 K/uL (130-400); RDW Coefficient of Variation 13.2 % (11.5-14.5); RDW Standard Deviation 44.2 fL (36.4-46.3); Red Blood Count 3.74 M/uL (4.63-6.08); White Blood Count 7.42 K/ul (4.8-10.8)
[2022-10-07 07:58] LABS: Calcium 9.3 mg/dl (8.5-10.1); Potassium 4.2 mmol/L (3.5-5.1)
[2022-10-07 08:03] LABS: BUN Creatinine Ratio 15.9 (10-20); Est GFR (African American) 58.2 ml/min; Est GFR (Non-African American) 50.2 ml/min
[2022-10-07 08:30] LABS: INR 2.9 (0.9-1.1); Prothrombin Time 28.9 Seconds (9.0-12.0)
[2022-10-07] MEDS: METOPROLOL TARTRATE 50 MG TAB PO SCH (09:10)
[2022-10-07] MEDS: cefTRIAXone SODIUM 2,000 MG in DEXTROSE 5% 50 ML IV SCH (09:12)
--- NOTE | 2022-10-07 12:37 | Discharge Summary ---
Discharge Summary Date of Service October 07, 2022 Notes For Next Care Provider Continue management of chronic medical issues Consider neuropsych eval for cognitive impairment/dementia Medication Changes From Visit Cefdinir for 4 more days to complete treatment Admission HPI Per Admitting Provider Patient is 89 y/o M with PMH HTN, CKD III, history of PE, anticoagulated on warfarin chronically, chronic anemia, h/o of prostate cancer treated with Lupron, chronic urinary retention with chronic Nieves, presented to ER with complaint of confusion x 5 days. History obtained from patient and patient's as well as chart review. reports patient with increased confusion past 5 days. 5 days ago was talking about being "off his schedule" and was talking about thinking he was going to by the end of week because he was so far off his schedule. States he seems more anxious. Patient currently alert and oriented x3. States vaguely remembers talking about this, however states he likes sticking to a daily schedule. Has chronic Nieves. Last changed on 10/02/22. Denies any noted change in coloration of urine. Today in ER new Nieves catheter placed. Patient C/O increased burping but denies nausea or vomiting. Denies fever/chills, diaphoresis, N/V/D/C, LION, dizziness, syncope, vision changes, neck pain, CP, SOB, orthopnea, palpitations, cough, sore throat, rhinorrhea, abdominal pain, paresthesias, extremity weakness, falls, extremity edema, rashes Admission Exam Per Admitting Provider General: no acute distress, WDWN Head: normocephalic, atraumatic Eyes: conjunctiva non-injected, anicteric ENT: normal inspection external ears, nose, mucous membranes moist Neck: supple, trachea midline, non-tender Lungs: clear, no respiratory distress, no wheezing/rhonchi/rales CV: RRR, no pretibial edema Abd: normal BS, soft, non-tender, no CVA tenderness Ext: no cyanosis, no calf tenderness Neuro: A&O x 3 currently, no focal deficits noted, normal affect Skin: warm, dry Principal Dx & Hospital Course #1 = Principal Diagnosis (1) Acute confusion: (2) Acute UTI (urinary tract infection): 89 y/o M with PMH HTN, CKD III, history of PE, anticoagulated on warfarin chronically, chronic anemia, h/o of prostate cancer treated with Lupron, chronic urinary retention with chronic Nieves, presented to ER with complaint of confusion x 5 days. Nieves placed changed on 10/02/22. Denies any noted change in coloration of urine, fever, chills, nausea, vomiting In ER vital stable. No leukocytosis. UA: 3+ blood, 3+ leuk esterase, > 30 WBC, 10-20 epithelial cells UA possible consistent with UTI, however patient with chronic catheter Possible UTI due to chronic catheter associated with metabolic encephalopathy CT head did not show any acute abnormalities Was treated with IV ceftriaxone inpatient Urine culture grew gamma strep not enterococcus 30,000CFU/ml Discharged on cefdinir to complete treatment PCP may do neuropsych testing for assess for development of cognitive impairment/dementia (3) Urinary retention: Urinary retention with chronic Nieves Nieves last changed on 10/02/2022 prior to admisson Changed again in ER on admission 10/05/22 (4) Elevated troponin: High-sensitivity troponin: 29. EKG similar to previous Denies chest pain, shortness of breath Trop trend 29->32->38 Reviewed old Echo (5) History of pulmonary embolism: Chronically anticoagulated on warfarin INR: 2.9 Continue warfarin (6) Hypertension: Stable Continue metoprolol tartrate (7) CKD (chronic kidney disease), stage III: Cr: 1.26 today . Baseline 1.2-1.3 per outpatient chart review (8) Chronic anemia: Hgb: 11.8. Baseline~11 per outpatient chart review Monitor H&H PT/OT evaluated and recommend home with HH/PT, rolling walker Patient and report he has walker at home reported she needs help taking care of him at home CM notified to arrange HH services Discharge Exam Constitutional + well hydrated; no acute distress Eyes PERRL, conjunctivae normal, anicteric sclerae ENMT external ear and nose normal, oropharynx normal Respiratory normal respiratory effort, lungs clear to auscultation Cardiovascular Rate/Rhythm: regular rate and regular rhythm S1 S2 Gastrointestinal (Abdomen) normal bowel sounds, soft, nontender, no hepatosplenomegaly Musculoskeletal No pedal edema Neurologic PERRL, EOMI, accommodation nl, no face palsy, no dysarthria Psychiatric A+Ox3, euthymic affect Updated Medication List Medication Instructions Recorded Confirmed Type warfarin 5 mg tablet 5 mg PO DIRECTED 08/25/19 10/05/22 History metoprolol tartrate 50 mg tablet 50 mg PO Q12H 1 month #60 tabs 09/12/19 10/05/22 Rx cefdinir 300 mg capsule 300 mg PO BID 4 days #8 caps 10/07/22 Rx Hospital Stay Data Consultations 10/05/22 21:12 ED Decision to Admit Stat Diagnostic Imagining Performed 10/05/22 16:08 CT head/brain wo con Stat Pending Results Patient Have Any Pending Studies at Discharge: No Discharge Instructions Given to Patient (Per Discharging Provider) Mr Vann You were brought to the hospital for confusion and weakness. You were evaluated and treated for urinary tract infection. Your nieves was changed in the hospital. You are being discharged on antibiotics (cefdinir) for next few days to complete treatment Please ensure follow up with your Primary Doctor It was a pleasure taking care of you. Total Time Total Time Spent Total Time Spent (In Minutes): 50 Total Time Includes: Examination of the Patient, Discharge Planning, Medication Reconciliation and Other
[2022-10-07] MEDS ORDERED: WARFARIN SOD 5 MG TAB PO SCH (16:00)
== END 2022-10-07 15:30 | disposition home health service (06) | DRG 698 ==
LOC: ED 15:24 → 2N 19:25

== ENCOUNTER 2022-10-11 16:22 | Inpatient (IN) ==
[2022-10-11] MEDS ORDERED: ACETAMINOPHEN 1,000 MG/100 ML VIAL IV STA (16:32)
--- NOTE | 2022-10-11 16:37 | Emergency Department Note ---
Impression & Plan Abdominal pain, Generalized weakness, Diarrhea ED Provider Note ED Provider Note NAME: BHARGAV OLIVEIRA AGE:89 SEX: Male : 1930 ARRIVES VIA: EMS INFORMANT: Patient and EMS ED PROVIDER(s): Dali Mendez DO CHIEF COMPLAINT: Abdominal pain HPI: This is an 89-year-old male with a history of prostate cancer and recent a dmission for confusion and urinary tract infection who presents due to worsening right lower quadrant pain. Patient is from home per EMS, and reports to EMS he was just discharged on the . Patient states he believes he is still taking an antibiotic, states his Blanchard is draining well and he has not seen any blood. Patient states he is incontinent of stool. He denies nausea or vomiting, denies fevers or chills. Patient unable to further clarify chronology of events since his discharge. Family not yet at bedside. Patient does use Coumadin due to history of atrial fibrillation and PE. PAST MEDICAL HISTORY:See Below PAST SURGICAL HISTORY:See Below FAMILY HISTORY:See Below SOCIAL HISTORY:See Below HOME MEDICATIONS:See Below ALLERGIES:See Below VITALS:See Below PHYSICAL EXAMINATION: GENERAL: alert, well appearing, well nourished, no distress, non-toxic EYE EXAM: normal conjunctiva, PERRL and EOM's grossly intact OROPHARYNX: no exudate, no erythema, lips, buccal mucosa, and tongue normal and mucous membranes are moist NECK: supple, no nuchal rigidity, no adenopathy, non-tender LUNGS: Clear to auscultation. Normal chest wall mechanics, no w/r/r HEART: no murmurs, S1 normal and S2 normal ABDOMEN: abdomen soft, non-tender, normo-active bowel sounds, no rebound or guarding. Right inguinal hernia palpated and easily reduced, nontender with palpation. BACK: Back is symmetrical on inspection and there is no deformity, no midline tenderness, no CVA tenderness. SKIN: no rashes, petechiae, orbruising UPPER EXTREMITIES: upper extremities are grossly normal. FROM, nml pulses b/l. LOWER EXTREMITIES: No pitting edema. FROM, nml pulses b/l. NEURO EXAM: Normal sensorium, cranial nerves II-XII grossly intact, normal speech, no facial droop,nogross weakness of arms, no gross weakness of legs. Gross sensation intact. No ataxia. Vital Signs: reviewed and remarkable Differential Diagnosis: infection, worsening malignancy, appendicitis, colitis, bowel obstruction, ureterolithiasis, lymphangitis, increased tumor burden, as well as others were considered MEDICAL DECISION MAKING: This is an 89-year-old male presents emergency department due to concern for right-sided abdominal pain, increased weakness, and diarrhea. Patient unable to provide significant history. Patient was recently admitted Consultation(s): 1902: Discussed with Dr. Duffy, hospitalist service. ER Treatment Provided: See below 1944: Discussed with at bedside. states patient very weak and refusing to eat or drink today. He began having diarrhea yesterday and had several more episodes today. She has not noted any blood. She states she is concerned for patient's increased weakness and risk of falls. She states he got his last dose of antibiotic for his UTI this morning. She does not feel his weakness or confusion has improved since being discharged home. Labs drawn and sent, IV established, patient sent for CT imaging. Upon additional discussion with the , she is concerned for his increased weakness and diarrhea. I suspect patient's diarrhea is likely from the recent course of antibiotics. Concern given decreased oral intake and mild clinical dehydration. concerned for weakness and fall risk additionally. Patient's INR therapeutic as he is chronically anticoagulated due to history of atrial fibrillation and PE. We discussed all CT findings. Patient's right inguinal hernia easily reduced an d nontender on my exam. No other evidence of acute GI, , or vascular findings on CT. Case discussed with hospitalist for additional evaluation and management. Diagnostics Interpreted By Me: -ECG: Normal sinus rhythm at 74, first-degree AV block, intraventricular conduc tion delay, normal QTC, normal axis, no acute ST/T wave changes -Cardiac Monitoring: An order was placed for continuous cardiac monitoring. The monitor shows a rate of [] with [] rhythm. -Laboratory studies: As stated above and show below. -Imaging studies: [] Triage Nursing Note Reviewed Prior/Outside Records Reviewed -recent hospital discharge summary reviewed Procedures: [] Critical Care: [] Past Med/Surg History Medical History (Updated 10/12/22 @ 00:05 by Dali Mendez DO) Anticoagulant long-term use Atrial fibrillation CKD (chronic kidney disease), stage III H/O deep venous thrombosis History of pulmonary embolism Malignant neoplasm of prostate Prolonged NH interval Urinary incontinence Urinary retention Surgical History History of tonsillectomy Family History Daughter Diabetes Other Family history non-contributory Social History Smoking Status: Never smoker Tobacco Type: Cigarettes Second Hand Exposure: No; Hx Alcohol Use: No Hx Substance Use: No Preferred Language: Uzbek Communication Ability: Effective Commercial Lines Assistant Required: No Beliefs That Will Affect Care: None marital status: Current Living Situation: Spouse and Family Current Living Situation Comment: lives w/ and dtr Feels Safe at Home: Yes Assistive Devices: Cane, Glasses and Walker Allergies Allergies Allergy/AdvReac Type Severity Reaction Status Date / Time Penicillins Allergy Unknown HAPPENED A Verified 10/11/22 19:24 LONG TIME AGO Home Meds Home Medications Medication Instructions Recorded Confirmed warfarin 5 mg tablet 5 mg PO [id number] 08/25/19 10/11/22 warfarin 5 mg tablet 10 mg PO [id number] 10/11/22 10/11/22 Previous Rx's Medication Instructions Recorded metoprolol tartrate 50 mg tablet 50 mg PO Q12H 1 month #60 tabs 09/12/19 Results & Data (ED) Vital Signs Vital Signs - 24 hr 10/11/22 16:25 10/11/22 17:00 10/11/22 18:00 Temperature 36.8 C Temperature Source Oral Pulse Rate 79 74 68 Pulse Rate [Apical] Pulse Rate from SpO2 Sensor 75 67 Respiratory Rate 20 12 15 Respiratory Effort / Characteristics Non-Labored Spontaneous Respiratory Depth Normal Respiratory Pattern Regular Blood Pressure 129/76 129/75 Blood Pressure [Right Arm] Blood Pressure Mean 93 93 Blood Pressure Mean [Right Arm] Blood Pressure Position Lying Pulse Oximetry 97 96 98 Oxygen Delivery Method Room Air Room Air Sepsis Recent Fever Within 48 Hours No Sepsis New/Unexplained Change in Mental Status N/A Sepsis Action Taken by Nursing No Action Required 10/11/22 19:03 Temperature Temperature Source Pulse Rate Pulse Rate [Apical] 77 Pulse Rate from SpO2 Sensor Respiratory Rate 12 Respiratory Effort / Characteristics Non-Labored Spontaneous Respiratory Depth Normal Respiratory Pattern Blood Pressure Blood Pressure [Right Arm] 140/78 Blood Pressure Mean Blood Pressure Mean [Right Arm] 98 Blood Pressure Position Pulse Oximetry 97 Oxygen Delivery Method Room Air Sepsis Recent Fever Within 48 Hours Sepsis New/Unexplained Change in Mental Status Sepsis Action Taken by Nursing Laboratory Data 10/11/22 16:50 10/11/22 16:50 Lab Results 10/11/22 10/11/22 10/11/22 Range/Units 16:50 16:50 16:50 WBC 12.77 H (4.8-10.8) K/ul RBC 3.88 L (4.70-6.10) M/uL Hgb 12.3 L (14.0-18.0) g/dl Hct 35.0 L (42.0-52.0) % MCV 90.2 (80.0-100.0) fL MCH 31.7 (25.0-34.0) pg MCHC 35.1 (32.0-36.0) g/dL RDW Std Deviation 43.7 (36.4-46.3) fL RDW Coeff of Sangeetha 13.2 (11.5-14.5) % Plt Count 208 (130-400) K/uL MPV 10.2 (9.4-12.4) fL Immature Gran % (Auto) 0.3 % Neut % (Auto) 74.9 % Lymph % (Auto) 15.8 % Dimmit % (Auto) 7.9 % Eos % (Auto) 0.8 % Baso % (Auto) 0.3 % Neut # (Auto) 9.56 H (1.40-6.50) K/uL Lymph # (Auto) 2.02 (1.2-3.4) K/uL Dim[place] # (Auto) 1.01 H (0.11-0.59) K/uL Eos # (Auto) 0.10 (0-0.50) K/uL Baso # (Auto) 0.04 (0-0.2) K/uL Immature Gran # (Auto) 0.04 (0.01-0.20) K/uL PT 24.0 H (9.0-12.0) Seconds INR 2.4 H (0.9-1.1) Sodium 136 (136-145) mmol/L Potassium 4.4 (3.5-5.1) mmol/L Chloride 103 (98-107) mmol/L Carbon Dioxide 28 (21-32) mmol/L Anion Gap 5 (3-11) BUN 17 (6-23) mg/dl Creatinine 1.13 (0.6-1.4) mg/dl Est Cr Clr Drug Dosing 48.6 ml/min Est GFR ( Amer) 66.4 ml/min Est GFR (Non-Af Amer) 57.3 ml/min BUN/Creatinine Ratio 15.0 (10-20) Glucose 103 H (70-99(Fasting)) mg/dl Calcium 9.3 (8.5-10.1) mg/dl Magnesium 2.0 (1.7-2.4) mg/dl Total Bilirubin 0.7 (0.2-1.0) mg/dl AST 16 (13-39) U/L ALT 8 (7-52) U/L Alkaline Phosphatase 59 (34-104) U/L Troponin I High Sens 37.4 H (0-20) pg/ml Total Protein 7.6 (6.0-8.3) gm/dl Albumin 4.1 (3.4-5.0) gm/dl Globulin 3.5 (2.5-4.0) gm/dl Albumin/Globulin Ratio 1.2 (0.9-2) Lipase 33 (11-82) U/L SARS-CoV-2, RNA, NAAT (NEGATIVE) 10/11/22 Range/Units 19:05 WBC (4.8-10.8) K/ul RBC (4.70-6.10) M/uL Hgb (14.0-18.0) g/dl Hct (42.0-52.0) % MCV (80.0-100.0) fL MCH (25.0-34.0) pg MCHC (32.0-36.0) g/dL RDW Std Deviation (36.4-46.3) fL RDW Coeff of Sangeetha (11.5-14.5) % Plt Count (130-400) K/uL MPV (9.4-12.4) fL Immature Gran % (Auto) % Neut % (Auto) % Lymph % (Auto) % Dim[place] % (Auto) % Eos % (Auto) % Baso % (Auto) % Neut # (Auto) (1.40-6.50) K/uL Lymph # (Auto) (1.2-3.4) K/uL Dimmit # (Auto) (0.11-0.59) K/uL Eos # (Auto) (0-0.50) K/uL Baso # (Auto) (0-0.2) K/uL Immature Gran # (Auto) (0.01-0.20) K/uL PT (9.0-12.0) Seconds INR (0.9-1.1) Sodium (136-145) mmol/L Potassium (3.5-5.1) mmol/L Chloride (98-107) mmol/L Carbon Dioxide (21-32) mmol/L Anion Gap (3-11) BUN (6-23) mg/dl Creatinine (0.6-1.4) mg/dl Est Cr Clr Drug Dosing ml/min Est GFR ( Amer) ml/min Est GFR (Non-Af Amer) ml/min BUN/Creatinine Ratio (10-20) Glucose (70-99(Fasting)) mg/dl Calcium (8.5-10.1) mg/dl Magnesium (1.7-2.4) mg/dl Total Bilirubin (0.2-1.0) mg/dl AST (13-39) U/L ALT (7-52) U/L Alkaline Phosphatase (34-104) U/L Troponin I High Sens (0-20) pg/ml Total Protein (6.0-8.3) gm/dl Albumin (3.4-5.0) gm/dl Globulin (2.5-4.0) gm/dl Albumin/Globulin Ratio (0.9-2) Lipase (11-82) U/L SARS-CoV-2, RNA, NAAT NEGATIVE (NEGATIVE) Administered Medications Sodium Chloride (Nss 1000ml) 1,000 mls @ 100 mls/hr IV .Q10H ONE Stop: 10/12/22 05:27 Last Admin: 10/11/22 19:43 Dose: 100 mls/hr Documented By: JKC Discontinued Medications Acetaminophen (Ofirmev) 1,000 mg in 100 mls @ 400 mls/hr IV NOW STA Stop: 10/11/22 16:46 Last Infusion: 10/11/22 17:41 Dose: 0 mls/hr Documented By: Admin: 10/11/22 16:55 Dose: 400 mls/hr Documented By: SHAI Sodium Chloride (Nss 1000ml) 1,000 mls @ 125 mls/hr IV .Q8H SHAREE Stop: 11/10/22 19:14 Last Infusion: 10/11/22 20:57 Dose: 0 mls/hr Documented By: Infusion: 10/11/22 19:43 Dose: 0 mls/hr Documented By: Admin: 10/11/22 19:12 Dose: 125 mls/hr Documented By: ABHILASH Ketorolac Tromethamine (Ketorolac Tromethamine 15 Mg/Ml Vial) 15 mg IV NOW ONE Stop: 10/11/22 20:06 Last Admin: 10/11/22 20:33 Dose: 15 mg Documented By: KENYA Imaging Data Radiologist's Impression: Abdomen/Pelvis CT 10/11/22 16:32 CT OF THE ABDOMEN AND PELVIS WITHOUT CONTRAST CLINICAL HISTORY: Right lower quadrant abdominal pain, hx prostate ca and UTI COMPARISON STUDY: CT of the abdomen and pelvis November 16, 2019. TECHNIQUE: Axial images of the abdomen and pelvis were obtained without IV contrast. Images were reviewed in the axial, sagittal, and coronal planes. Automated exposure control was utilized for the study. A dose lowering technique was utilized adhering to the principles of ALARA. FINDINGS: There is mild airspace opacity within the right middle lobe. No pneumatosis, free air or portal venous gas is present. There is mild bilateral renal atrophy. There is no hydronephrosis. There are no urinary calculi. A Blanchard balloon within the bladder is present. The prostate has decreased in size since CT of November 16, 2019. There is no lymphadenopathy. No suspicious lesions within the visualized skeletal structures. Evaluation of the remainder of the abdomen a nd pelvis is suboptimal on this unenhanced exam. A 1.7 cm right hepatic lobe cyst is noted. There is no biliary or pancreatic ductal dilatation. Spleen, adrenal glands and pancreas are unremarkable. 3.1 cm infrarenal abdominal aortic aneurysm is present. There is mild dilatation of the bilateral common carotid arteries. There is no evidence for rupture. Large amount stool within the rectum is noted. There is a moderate amount stool within the colon. A loop of small bowel extends into the right inguinal hernia. There is no resultant bowel obstruction. No ascites. No acute fractures. IMPRESSION: 1. No urinary calculi or hydronephrosis. Interval decrease in size of the prostate gland since CT of November 16, 2019. 2. Large amount of stool within the rectum. Moderate amount of stool within the colon. No bowel obstruction. 3. Right inguinal hernia which contains a loop of small bowel. No resultant bowel obstruction. 4. Mild right middle lobe airspace opacity which may reflect an infectious process. 5. 3.1 cm infrarenal abdominal aortic aneurysm. ACT 112: Negative or not required by law. Electronically signed by: Mika Vera M.D. 10/11/2022 6:23 PM Discharge Plan Visit Data Chief Complaint: Abdominal Pain ED Provider: Dali Mendez Discharge Problem: Abdominal pain, Generalized weakness, Diarrhea Discharge Instructions Interventions: ED Discharge Assessment Last Done: 10/11/22 22:30
[2022-10-11 17:14] LABS: Basophils # (auto) 0.04 K/uL (0-0.2); Basophils % (auto) 0.3 %; Eosinophils % (auto) 0.8 %; Hemoglobin 12.3 g/dl (14.0-18.0); Immature Granulocytes # (auto) 0.04 K/uL (0.01-0.20); Immature Granulocytes % (auto) 0.3 %; Lymphocytes # (auto) 2.02 K/uL (1.2-3.4); Lymphocytes % (auto) 15.8 %; Mean Corpuscular Hemoglobin 31.7 pg (25.0-34.0); Mean Corpuscular Hgb Conc 35.1 g/dL (32.0-36.0); Mean Corpuscular Volume 90.2 fL (80.0-100.0); Mean Platelet Volume 10.2 fL (9.4-12.4); Monocytes # (auto) 1.01 K/uL (0.11-0.59); Monocytes % (auto) 7.9 %; Neutrophils # (auto) 9.56 K/uL (1.40-6.50); Neutrophils % (auto) 74.9 %; Platelet Count 208 K/uL (130-400); RDW Coefficient of Variation 13.2 % (11.5-14.5); RDW Standard Deviation 43.7 fL (36.4-46.3); Red Blood Count 3.88 M/uL (4.70-6.10); White Blood Count 12.77 K/ul (4.8-10.8)
[2022-10-11 17:24] LABS: INR 2.4 (0.9-1.1)
[2022-10-11 17:31] LABS: Albumin Level 4.1 gm/dl (3.4-5.0); Bilirubin,Total 0.7 mg/dl (0.2-1.0); Calcium 9.3 mg/dl (8.5-10.1); Potassium 4.4 mmol/L (3.5-5.1)
[2022-10-11 17:37] LABS: Albumin Globulin Ratio 1.2 (0.9-2); Creatinine Clr Calc Pharmacy 48.6 ml/min; Est GFR (African American) 66.4 ml/min; Est GFR (Non-African American) 57.3 ml/min; Globulin 3.5 gm/dl (2.5-4.0); Total Protein 7.6 gm/dl (6.0-8.3)
[2022-10-11 18:03] LABS: Troponin I High Sensitivity 37.4 pg/ml (0-20)
--- NOTE | 2022-10-11 18:25 | CT Scan Report ---
CT OF THE ABDOMEN AND PELVIS WITHOUT CONTRAST CLINICAL HISTORY: Right lower quadrant abdominal pain, hx prostate ca and UTI COMPARISON STUDY: CT of the abdomen and pelvis November 16, 2019. TECHNIQUE: Axial images of the abdomen and pelvis were obtained without IV contrast. Images were revi ewed in the axial, sagittal, and coronal planes. Automated exposure control was utilized for the sera dy. A dose lowering technique was utilized adhering to the principles of ALARA. FINDINGS: There is mild airspace opacity within the right middle lobe. No pneumatosis, free air or po rtal venous gas is present. There is mild bilateral renal atrophy. There is no hydronephrosis. There are no urinary calculi. A Blanchard balloon within the bladder is present. The prostate has decreased in size since CT of November 16, 2019. There is no lymphadenopathy. No suspicious lesions within the visuali zed skeletal structures. Evaluation of the remainder of the abdomen and pelvis is suboptimal on this unenhanced exam. A 1.7 cm right hepatic lobe cyst is noted. There is no biliary or pancreatic ductal dilatation. Spleen, adrenal glands and pancreas are unremarkable. 3.1 cm infrarenal abdominal aortic aneurysm is present. There is mild dilatation of the bilateral common carotid arteries. There is no e vidence for rupture. Large amount stool within the rectum is noted. There is a moderate amount stool within the colon. A loop of small bowel extends into the right inguinal hernia. There is no resultant bowel obstruction. No ascites. No acute fractures. IMPRESSION: 1. No urinary calculi or hydronephrosis. Interval decrease in size of the prostate gland since CT of November 16, 2019. 2. Large amount of stool within the rectum. Moderate amount of stool within the colon. No bowel obstr uction. 3. Right inguinal hernia which contains a loop of small bowel. No resultant bowel obstruction. 4. Mild right middle lobe airspace opacity which may reflect an infectious process. 5. 3.1 cm infrarenal abdominal aortic aneurysm. ACT 112: Negative or not required by law. Electronically signed by: Mika Vera M.D. 10/11/2022 6:23 PM
[2022-10-11] MEDS ORDERED: SODIUM CHLORIDE 0.9% 1000ML 1,000 ML IV SCH (19:15)
[2022-10-11] MEDS ORDERED: SODIUM CHLORIDE 0.9% 1000ML 1,000 ML IV ONE (19:28)
[2022-10-11] MEDS ORDERED: KETOROLAC TROMETHAMINE 15 MG/ML VIAL IV ONE (20:05)
--- NOTE | 2022-10-11 20:07 | History & Physical Report ---
Date of Service October 11, 2022 Assessment & Plan (1) Abdominal pain: Plan: Gastroenteritis rule out C. difficile given recent antibiotic Rx Patient nontoxic. 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 difficile Follow troponin, TTE for progression PT OT eval Outpatient neuropsych evaluation for cognitive impairment DVT prophylaxis. Coumadin INR goal between 2 and 3 DNR as per patient's wishes. Patient requesting updates from providers. Ms. Massiel Vann, contact #[phone]. History of Present Illness Chief Complaint: Abdominal pain Primary Care Provider: Jose Angel Vann, History obtained from patient, family, and records. Patient is a fair historian. 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 Last confinement October 05 to 2022 for encephalopathy secondary to UTI. No significant growth on urine CS. Patient discharged on cefdinir course. This morning, patient noted achy right-sided abdominal pain followed by watery diarrhea symptoms. Patient denies headache, chest pain, shortness of breath, fever, chills. Patient mentation at baseline as per . Patient brought to the ER for evaluation. 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, lives with Allergies Allergy/AdvReac Type Severity Reaction Status Date / Time Penicillins Allergy Unknown HAPPENED A Verified 10/11/22 19:24 LONG TIME AGO Home Medications Medication Instructions Recorded Confirmed Type warfarin 5 mg tablet 5 mg PO 5XWK 08/25/19 10/11/22 History metoprolol tartrate 50 mg tablet 50 mg PO Q12H 1 month #60 tabs 09/12/19 10/11/22 Rx warfarin 5 mg tablet 10 mg PO 2XWK 10/11/22 10/11/22 History Past Med/Surg History Medical History (Updated 10/11/22 @ 16:37 by Dali Mendez DO) Anticoagulant long-term use Atrial fibrillation CKD (chronic kidney disease), stage III H/O deep venous thrombosis History of pulmonary embolism Malignant neoplasm of prostate Prolonged [place] interval Urinary incontinence Urinary retention Surgical History History of tonsillectomy Family History Daughter Diabetes Other Family history non-contributory Social History Smoking Status: Never smoker Tobacco Type: Cigarettes Second Hand Exposure: No; Hx Alcohol Use: No Hx Substance Use: No Preferred Language: Nepali Communication Ability: Effective Manufacturing Controller Required: No Beliefs That Will Affect Care: None marital status: Current Living Situation: Spouse and Family Current Living Situation Comment: lives w/ and dtr Feels Safe at Home: Yes Assistive Devices: Cane, Glasses and Walker Review of Systems Review of Systems: As per HPI, all other systems reviewed and negative Physical Exam Physical Exam: GENERAL: Slightly uncomfortable, flat affect, no respiratory distress SKIN: Pallor , warm HEENT: Partial alopecia, pale palpebral conjunctivae, no ptosis, dry buccal mucosa NECK : Supple, no tenderness CHEST : Decreased breath sounds, no tenderness HEART : RRR, no obvious murmurs ABDOMEN: Some distention, minimal hypogastric tenderness EXTREMITIES : Minimal LE swelling, no LE tenderness, no other conspicuous deformities noted NEUROLOGIC : Coherent, no facial asymmetry, gait and stance not assessed Results & Data Results & Data ([facility]) Vital Signs (Past 12 Hours) Vital Signs Temp Pulse Pulse Resp BP BP Pulse Ox 10/11/22 19:03 77 12 140/78 97 10/11/22 18:00 68 15 129/75 98 10/11/22 17:00 74 12 96 10/11/22 16:25 36.8 C 79 20 129/76 97 O2 Del Method 10/11/22 19:03 Room Air 10/11/22 18:00 Room Air 10/11/22 17:00 10/11/22 16:25 Room Air Laboratory Results Laboratory Results WBC 12.77 K/ul (4.8-10.8) H 10/11/22 16:50 RBC 3.88 M/uL (4.70-6.10) L 10/11/22 16:50 Hgb 12.3 g/dl (14.0-18.0) L 10/11/22 16:50 Hct 35.0 % (42.0-52.0) L 10/11/22 16:50 MCV 90.2 fL (80.0-100.0) 10/11/22 16:50 MCH 31.7 pg (25.0-34.0) 10/11/22 16:50 MCHC 35.1 g/dL (32.0-36.0) 10/11/22 16:50 RDW Std Deviation 43.7 fL (36.4-46.3) 10/11/22 16:50 RDW Coeff of Sangeetha 13.2 % (11.5-14.5) 10/11/22 16:50 Plt Count 208 K/uL (130-400) 10/11/22 16:50 MPV 10.2 fL (9.4-12.4) 10/11/22 16:50 Immature Gran % (Auto) 0.3 % 10/11/22 16:50 Neut % (Auto) 74.9 % 10/11/22 16:50 Lymph % (Auto) 15.8 % 10/11/22 16:50 [place] % (Auto) 7.9 % 10/11/22 16:50 Eos % (Auto) 0.8 % 10/11/22 16:50 Baso % (Auto) 0.3 % 10/11/22 16:50 Neut # (Auto) 9.56 K/uL (1.40-6.50) H 10/11/22 16:50 Lymph # (Auto) 2.02 K/uL (1.2-3.4) 10/11/22 16:50 [place] # (Auto) 1.01 K/uL (0.11-0.59) H 10/11/22 16:50 Eos # (Auto) 0.10 K/uL (0-0.50) 10/11/22 16:50 Baso # (Auto) 0.04 K/uL (0-0.2) 10/11/22 16:50 Immature Gran # (Auto) 0.04 K/uL (0.01-0.20) 10/11/22 16:50 PT 24.0 Seconds (9.0-12.0) H 10/11/22 16:50 INR 2.4 (0.9-1.1) H 10/11/22 16:50 Sodium 136 mmol/L (136-145) 10/11/22 16:50 Potassium 4.4 mmol/L (3.5-5.1) 10/11/22 16:50 Chloride 103 mmol/L (98-107) 10/11/22 16:50 Carbon Dioxide 28 mmol/L (21-32) 10/11/22 16:50 Anion Gap 5 (3-11) 10/11/22 16:50 BUN 17 mg/dl (6-23) 10/11/22 16:50 Creatinine 1.13 mg/dl (0.6-1.4) 10/11/22 16:50 Est Cr Clr Drug Dosing 48.6 ml/min 10/11/22 16:50 Est GFR ( Amer) 66.4 ml/min 10/11/22 16:50 Est GFR (Non-Af Amer) 57.3 ml/min 10/11/22 16:50 BUN/Creatinine Ratio 15.0 (10-20) 10/11/22 16:50 Glucose 103 mg/dl (70-99(Fasting)) H 10/11/22 16:50 Calcium 9.3 mg/dl (8.5-10.1) 10/11/22 16:50 Magnesium 2.0 mg/dl (1.7-2.4) 10/11/22 16:50 Total Bilirubin 0.7 mg/dl (0.2-1.0) 10/11/22 16:50 AST 16 U/L (13-39) 10/11/22 16:50 ALT 8 U/L (7-52) 10/11/22 16:50 Alkaline Phosphatase 59 U/L (34-104) 10/11/22 16:50 Troponin I High Sens 37.4 pg/ml (0-20) H 10/11/22 16:50 Total Protein 7.6 gm/dl (6.0-8.3) 10/11/22 16:50 Albumin 4.1 gm/dl (3.4-5.0) 10/11/22 16:50 Globulin 3.5 gm/dl (2.5-4.0) 10/11/22 16:50 Albumin/Globulin Ratio 1.2 (0.9-2) 10/11/22 16:50 Lipase 33 U/L (11-82) 10/11/22 16:50 SARS-CoV-2, RNA, NAAT NEGATIVE (NEGATIVE) 10/11/22 19:05 Impressions Abdomen/Pelvis CT 10/11/22 16:32 CT OF THE ABDOMEN AND PELVIS WITHOUT CONTRAST CLINICAL HISTORY: Right lower quadrant abdominal pain, hx prostate ca and UTI COMPARISON STUDY: CT of the abdomen and pelvis November 16, 2019. TECHNIQUE: Axial images of the abdomen and pelvis were obtained without IV contrast. Images were reviewed in the axial, sagittal, and coronal planes. Automated exposure control was utilized for the study. A dose lowering technique was utilized adhering to the principles of ALARA. FINDINGS: There is mild airspace opacity within the right middle lobe. No pneumatosis, free air or portal venous gas is present. There is mild bilateral renal atrophy. There is no hydronephrosis. There are no urinary calculi. A Blanchard balloon within the bladder is present. The prostate has decreased in size since CT of November 16, 2019. There is no lymphadenopathy. No suspicious lesions within the visualized skeletal structures. Evaluation of the remainder of the abdomen and pelvis is suboptimal on this unenhanced exam. A 1.7 cm right hepatic lobe cyst is noted. There is no biliary or pancreatic ductal dilatation. Spleen, adrenal glands and pancreas are unremarkable. 3.1 cm infrarenal abdominal aortic aneurysm is present. There is mild dilatation of the bilateral common carotid arteries. There is no evidence for rupture. Large amount stool within the rectum is noted. There is a moderate amount stool within the colon. A loop of small bowel extends into the right inguinal hernia. There is no resultant bowel obstruction. No ascites. No acute fractures. IMPRESSION: 1. No urinary calculi or hydronephrosis. Interval decrease in size of the prostate gland since CT of November 16, 2019. 2. Large amount of stool within the rectum. Moderate amount of stool within the colon. No bowel obstruction. 3. Right inguinal hernia which contains a loop of small bowel. No resultant bowel obstruction. 4. Mild right middle lobe airspace opacity which may reflect an infectious process. 5. 3.1 cm infrarenal abdominal aortic aneurysm. ACT 112: Negative or not required by law. Electronically signed by: Mika Vera M.D. 10/11/2022 6:23 PM Diagnostic Findings EKG as per my interpretation : Rate 75, NSR, normal axis, 1 AVB, T wave abnormalities inferior leads Code Status & VTE Plan VTE Prophylaxis Plan VTE Prophylaxis will be ordered: Yes
[2022-10-11 20:52] LABS: Appearance Urine Clear (Clear); Bacteria Urine Automated Negative (Negative); Bilirubin Urine Negative (Negative); Blood Urine Negative (Negative); Color Urine Yellow; Glucose Urine UA Negative (Negative); Ketones Urine Negative (Negative); Leukocyte Esterase Urine Negative (Negative); Nitrite Urine Negative (Negative); Protein Urine Trace (Negative); RBC Urine Automated 0-4 /hpf (0-4); Specific Gravity Urine 1.019 (1.000-1.030); Urobilinogen Urine Negative (Negative); pH Urine 6.5 (4.5-7.5)
[2022-10-11] MEDS ORDERED: PROMETHAZINE HCL 12.5 MG in SODIUM CHLORIDE 0.9% 50 ML IV PRN (23:12)
[2022-10-12] MEDS: METOPROLOL TARTRATE 50 MG TAB PO SCH ×3 (00:56→21:17)
[2022-10-12 05:33] LABS: Basophils # (auto) 0.03 K/uL (0-0.2); Basophils % (auto) 0.2 %; Eosinophils # (auto) 0.11 K/uL (0-0.50); Eosinophils % (auto) 0.8 %; Hematocrit (blood only) 31.8 % (42.0-52.0); Hemoglobin 11.2 g/dl (14.0-18.0); Immature Granulocytes # (auto) 0.06 K/uL (0.01-0.20); Immature Granulocytes % (auto) 0.4 %; Lymphocytes # (auto) 1.77 K/uL (1.2-3.4); Lymphocytes % (auto) 12.2 %; Mean Corpuscular Hgb Conc 35.2 g/dL (32.0-36.0); Mean Corpuscular Volume 90.9 fL (80.0-100.0); Mean Platelet Volume 10.2 fL (9.4-12.4); Monocytes # (auto) 1.25 K/uL (0.11-0.59); Monocytes % (auto) 8.6 %; Neutrophils # (auto) 11.27 K/uL (1.40-6.50); Neutrophils % (auto) 77.8 %; Platelet Count 185 K/uL (130-400); RDW Coefficient of Variation 13.2 % (11.5-14.5); RDW Standard Deviation 43.6 fL (36.4-46.3); White Blood Count 14.49 K/ul (4.8-10.8)
[2022-10-12 05:49] LABS: INR 2.5 (0.9-1.1); Prothrombin Time 24.9 Seconds (9.0-12.0)
[2022-10-12 05:54] LABS: Calcium 8.6 mg/dl (8.5-10.1); Potassium 3.8 mmol/L (3.5-5.1)
[2022-10-12 05:58] LABS: Troponin I High Sensitivity 41.5 pg/ml (0-20)
[2022-10-12 06:00] LABS: Creatinine Clr Calc Pharmacy 48.3 ml/min; Est GFR (Non-African American) 61.2 ml/min
[2022-10-12] MEDS: traMADol HCL 50 MG TABLET PO PRN ×2 (06:03→17:47)
--- NOTE | 2022-10-12 07:33 | Electrocardiogram Report ---
Test Reason : Blood Pressure : / mmHG Vent. Rate : 074 BPM Atrial Rate : 074 BPM P-R Int : 346 ms QRS Dur : 140 ms QT Int : 416 ms P-R-T Axes : 070 072 024 degrees QTc Int : 461 ms Sinus rhythm with 1st degree A-V block Right bundle branch block Abnormal ECG Confirmed by Eb Blue ([id number]) on 10/12/2022 7:33:35 AM Referred By: REFERRED SELF Confirmed By:Hans Blue
--- NOTE | 2022-10-12 15:32 | Hospitalist Progress Note ---
Date of Service October 12, 2022 Assessment & Plan (1) Abdominal pain: Plan: Present with right lower abdominal pain followed by small amount of diarrhea CT abdomen showed large amount of stool within the rectum. Moderate amount of stool within the colon. No bowel obstruction. Right inguinal hernia which contains a loop of small bowel. Pain control Stools pending for cdiff tolerated diet Continue monitor Right inguinal hernia Complaint of intermittent right lower side abdominal pain CT abd/pelvis showed right inguinal hernia which contains a loop of small bowel. No resultant bowel obstruction. Imaging finding discussed with and patient at bedside Will consult surgery Urinary retention with chronic Blanchard Abnormal UA Urine cx grew gamma step not enterococcus with low count - No sensitivity to follow Will hold on antibiotic Chronic Elevated troponin: Denies chest pain and shortness of breath EKG showed no acute ischemic changes Continue monitor closely History of pulmonary embolism: Chronically anticoagulated on warfarin INR: 2.5 today Continue warfarin Hypertension: Continue metoprolol tartrate CKD (chronic kidney disease), stage III: Creatinine stable, Baseline 1.2-1.3 Chronic anemia: Hgb: 11.3 stable DVT Prophylaxis Anticoagulated on warfarin. Code status DNR Admission and Anticipated Discharge Date Admission Date: October 11, 2022 Subjective Pt was seen and examined for follow of Right lower abdominal pain Sitting in chair with no acute distress Pt said that right side abdominal pain come and go He said that each time he has pain that follows with small episodes of bowel movement later I went back to his room to update the and answered all her questions he denies any chest pain, palpitation, fever and SOB Review of Systems Review of Systems: All systems reviewed & are unremarkable except as noted in Subjective Physical Exam Physical Exam: General- No acute distress Head- atraumatic Eyes- PERRL, EOMI, ENT- oropharynx clear Neck- supple, no JVD Lungs- clear to auscultation Heart- regular rhythm; no murmur Abdomen- normal bowel sounds, soft, nontender Extremities- no calf tenderness Neuro- alert, oriented x 3; PERRL, EOMI; no facial palsy; no dysarthria Skin- warm & dry Results & Data Results & Data ([facility]) Vital Signs (Past 12 Hours) Vital Signs Temp Pulse Pulse Resp BP Pulse Ox O2 Del Method 10/12/22 12:17 36.8 C 72 18 131/67 96 Room Air 10/12/22 11:04 37.0 C 71 16 95/55 L 96 Room Air 10/12/22 08:19 36.8 C 84 18 125/70 97 Room Air 10/12/22 06:50 82 10/12/22 04:04 36.7 C 69 16 128/75 98 Room Air
--- NOTE | 2022-10-12 17:46 | Surgery Consultation ---
Date of Consultation October 12, 2022 Assessment & Plan (1) Abdominal pain: Likely due to C. dificile. Stool culture pending. Nontoxic with benign abdominal exam. Management as per primary service. (2) Anticoagulant long-term use: On coumadin (3) Inguinal hernia of right side without obstruction or gangrene: Contains loop of small bowel. Asymptomatic and fully reducible. Given his overall condition, not an ideal candidate for repair but if they are interested, this can be pursued via an outpatient evaluation. No need for surgical intervention currently. Attempted to call but no answer. Will sign off. Please call with questions. History of Present Illness Reason for Consultation: right inguinal hernia Requesting Physician: Deborah Frias MD Attending Physician: Deborah Frias MD History of Present Illness 89 yr old man admitted with probable C. Dificile colitis following recent antibiotic course for urinary tract infection (admitted about 1 week ago). Began to have watery diarrhea. No abdominal pain. Ct scan also showed a bowel containing right inguinal hernia for which we were consulted. He has had this for some time, denies any symptoms. Pt denies pain in the right groin. 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 Possible developing dementia. Pt is DNR/ DNI. Allergies Allergy/AdvReac Type Severity Reaction Status Date / Time Penicillins Allergy Unknown HAPPENED A Verified 10/11/22 19:24 LONG TIME AGO Home Medications Medication Instructions Recorded Confirmed Type warfarin 5 mg tablet 5 mg PO 5XWK 08/25/19 10/11/22 History metoprolol tartrate 50 mg tablet 50 mg PO Q12H 1 month #60 tabs 09/12/19 10/11/22 Rx warfarin 5 mg tablet 10 mg PO 2XWK 10/11/22 10/11/22 History Patient History Medical History Anticoagulant long-term use Atrial fibrillation CKD (chronic kidney disease), stage III H/O deep venous thrombosis History of pulmonary embolism Malignant neoplasm of prostate Prolonged [place] interval Urinary incontinence Urinary retention Surgical History History of tonsillectomy Family History Daughter Diabetes Other Family history non-contributory Social History Smoking Status: Former smoker Tobacco Type: Cigarettes Second Hand Exposure: No; Do You Dip or Chew Tobacco: No; Hx Alcohol Use: No Hx Substance Use: No Preferred Language: Icelandic Communication Ability: Effective Human Relations Professor Required: No Beliefs That Will Affect Care: None marital status: Current Living Situation: Spouse and Family Current Living Situation Comment: lives w/ and dtr Other Information That Helps Us Care for You: No Feels Safe at Home: Yes Safety Concerns: Feels Safe At This Time Assistive Devices: Cane, Glasses and Walker Review of Systems Hematologic / Lymphatic: on coumadin, easy bruising noted Physical Exam Constitutional: + thin and + frail appearing Eyes: PERRL, conjunctivae normal, anicteric sclerae Respiratory: normal respiratory effort, lungs clear to auscultation Cardiovascular: Rate/Rhythm: + irregularly irregular Gastrointestinal (Abdomen): normal bowel sounds, soft, nontender, no hepatosplenomegaly fully reducible right inguinal hernia Skin: easy bruising Neurologic: awake; no focal motor deficits Results & Data ([facility]) Vital Signs (Past 12 Hours) Vital Signs Temp Pulse Pulse Resp BP Pulse Ox O2 Del Method 10/12/22 15:58 37.5 C 90 18 110/62 95 Room Air 10/12/22 14:45 80 10/12/22 12:17 36.8 C 72 18 131/67 96 Room Air 10/12/22 11:04 37.0 C 71 16 95/55 L 96 Room Air 10/12/22 08:19 36.8 C 84 18 125/70 97 Room Air 10/12/22 06:50 82 Laboratory Results 10/12/22 10/12/22 10/12/22 Range/Units 05:14 05:14 05:14 WBC 14.49 H (4.8-10.8) K/ul RBC 3.50 L (4.70-6.10) M/uL Hgb 11.2 L (14.0-18.0) g/dl Hct 31.8 L (42.0-52.0) % MCV 90.9 (80.0-100.0) fL MCH 32.0 (25.0-34.0) pg MCHC 35.2 (32.0-36.0) g/dL RDW Std Deviation 43.6 (36.4-46.3) fL RDW Coeff of Sangeetha 13.2 (11.5-14.5) % Plt Count 185 (130-400) K/uL MPV 10.2 (9.4-12.4) fL Immature Gran % (Auto) 0.4 % Neut % (Auto) 77.8 % Lymph % (Auto) 12.2 % [place] % (Auto) 8.6 % Eos % (Auto) 0.8 % Baso % (Auto) 0.2 % Neut # (Auto) 11.27 H (1.40-6.50) K/uL Lymph # (Auto) 1.77 (1.2-3.4) K/uL [place] # (Auto) 1.25 H (0.11-0.59) K/uL Eos # (Auto) 0.11 (0-0.50) K/uL Baso # (Auto) 0.03 (0-0.2) K/uL Immature Gran # (Auto) 0.06 (0.01-0.20) K/uL PT 24.9 H (9.0-12.0) Seconds INR 2.5 H (0.9-1.1) Sodium 135 L (136-145) mmol/L Potassium 3.8 (3.5-5.1) mmol/L Chloride 104 (98-107) mmol/L Carbon Dioxide 26 (21-32) mmol/L Anion Gap 5 (3-11) BUN 16 (6-23) mg/dl Creatinine 1.07 (0.6-1.4) mg/dl Est Cr Clr Drug Dosing 48.3 ml/min Est GFR ( Amer) 71.0 ml/min Est GFR (Non-Af Amer) 61.2 ml/min BUN/Creatinine Ratio 15.0 (10-20) Glucose 95 (70-99(Fasting)) mg/dl Calcium 8.6 (8.5-10.1) mg/dl Troponin I High Sens 41.5 H (0-20) pg/ml Urine Color Urine Appearance (Clear) Urine pH (4.5-7.5) Ur Specific [place] (1.000-1.030) Urine Protein (Negative) Urine Glucose (UA) (Negative) Urine Ketones (Negative) Urine Blood (Negative) Urine Nitrite (Negative) Urine Bilirubin (Negative) Urine Urobilinogen (Negative) Ur Leukocyte Esterase (Negative) Urine WBC (Auto) (0-5) /hpf Urine RBC (Auto) (0-4) /hpf U Hyaline Cast (Auto) (0-5) /lpf U Epithel Cells (Auto) (0-5) /lpf Urine Bacteria (Auto) (Negative) SARS-CoV-2, RNA, NAAT (NEGATIVE) 10/11/22 10/11/22 10/11/22 Range/Units 21:16 20:14 19:05 WBC (4.8-10.8) K/ul RBC (4.70-6.10) M/uL Hgb (14.0-18.0) g/dl Hct (42.0-52.0) % MCV (80.0-100.0) fL MCH (25.0-34.0) pg MCHC (32.0-36.0) g/dL RDW Std Deviation (36.4-46.3) fL RDW Coeff of Sangeetha (11.5-14.5) % Plt Count (130-400) K/uL MPV (9.4-12.4) fL Immature Gran % (Auto) % Neut % (Auto) % Lymph % (Auto) % [place] % (Auto) % Eos % (Auto) % Baso % (Auto) % Neut # (Auto) (1.40-6.50) K/uL Lymph # (Auto) (1.2-3.4) K/uL [place] # (Auto) (0.11-0.59) K/uL Eos # (Auto) (0-0.50) K/uL Baso # (Auto) (0-0.2) K/uL Immature Gran # (Auto) (0.01-0.20) K/uL PT (9.0-12.0) Seconds INR (0.9-1.1) Sodium (136-145) mmol/L Potassium (3.5-5.1) mmol/L Chloride (98-107) mmol/L Carbon Dioxide (21-32) mmol/L Anion Gap (3-11) BUN (6-23) mg/dl Creatinine (0.6-1.4) mg/dl Est Cr Clr Drug Dosing ml/min Est GFR ( Amer) ml/min Est GFR (Non-Af Amer) ml/min BUN/Creatinine Ratio (10-20) Glucose (70-99(Fasting)) mg/dl Calcium (8.5-10.1) mg/dl Troponin I High Sens 40.6 H (0-20) pg/ml Urine Color Yellow Urine Appearance Clear (Clear) Urine pH 6.5 (4.5-7.5) Ur Specific [place] 1.019 (1.000-1.030) Urine Protein Trace H (Negative) Urine Glucose (UA) Negative (Negative) Urine Ketones Negative (Negative) Urine Blood Negative (Negative) Urine Nitrite Negative (Negative) Urine Bilirubin Negative (Negative) Urine Urobilinogen Negative (Negative) Ur Leukocyte Esterase Negative (Negative) Urine WBC (Auto) 5-10 H (0-5) /hpf Urine RBC (Auto) 0-4 (0-4) /hpf U Hyaline Cast (Auto) 1-5 (0-5) /lpf U Epithel Cells (Auto) 10-20 H (0-5) /lpf Urine Bacteria (Auto) Negative (Negative) SARS-CoV-2, RNA, NAAT NEGATIVE (NEGATIVE) 10/11/22 Range/Units 16:50 WBC (4.8-10.8) K/ul RBC (4.70-6.10) M/uL Hgb (14.0-18.0) g/dl Hct (42.0-52.0) % MCV (80.0-100.0) fL MCH (25.0-34.0) pg MCHC (32.0-36.0) g/dL RDW Std Deviation (36.4-46.3) fL RDW Coeff of Sangeetha (11.5-14.5) % Plt Count (130-400) K/uL MPV (9.4-12.4) fL Immature Gran % (Auto) % Neut % (Auto) % Lymph % (Auto) % [place] % (Auto) % Eos % (Auto) % Baso % (Auto) % Neut # (Auto) (1.40-6.50) K/uL Lymph # (Auto) (1.2-3.4) K/uL [place] # (Auto) (0.11-0.59) K/uL Eos # (Auto) (0-0.50) K/uL Baso # (Auto) (0-0.2) K/uL Immature Gran # (Auto) (0.01-0.20) K/uL PT (9.0-12.0) Seconds INR (0.9-1.1) Sodium (136-145) mmol/L Potassium (3.5-5.1) mmol/L Chloride (98-107) mmol/L Carbon Dioxide (21-32) mmol/L Anion Gap (3-11) BUN (6-23) mg/dl Creatinine (0.6-1.4) mg/dl Est Cr Clr Drug Dosing ml/min Est GFR ( Amer) ml/min Est GFR (Non-Af Amer) ml/min BUN/Creatinine Ratio (10-20) Glucose (70-99(Fasting)) mg/dl Calcium (8.5-10.1) mg/dl Troponin I High Sens 37.4 H (0-20) pg/ml Urine Color Urine Appearance (Clear) Urine pH (4.5-7.5) Ur Specific [place] (1.000-1.030) Urine Protein (Negative) Urine Glucose (UA) (Negative) Urine Ketones (Negative) Urine Blood (Negative) Urine Nitrite (Negative) Urine Bilirubin (Negative) Urine Urobilinogen (Negative) Ur Leukocyte Esterase (Negative) Urine WBC (Auto) (0-5) /hpf Urine RBC (Auto) (0-4) /hpf U Hyaline Cast (Auto) (0-5) /lpf U Epithel Cells (Auto) (0-5) /lpf Urine Bacteria (Auto) (Negative) SARS-CoV-2, RNA, NAAT (NEGATIVE) Diagnostic Findings CT OF THE ABDOMEN AND PELVIS WITHOUT CONTRAST CLINICAL HISTORY: Right lower quadrant abdominal pain, hx prostate ca and UTI COMPARISON STUDY: CT of the abdomen and pelvis November 16, 2019. TECHNIQUE: Axial images of the abdomen and pelvis were obtained without IV contrast. Images were reviewed in the axial, sagittal, and coronal planes. Automated exposure control was utilized for the study. A dose lowering technique was utilized adhering to the principles of ALARA. FINDINGS: There is mild airspace opacity within the right middle lobe. No pneumatosis, free air or portal venous gas is present. There is mild bilateral renal atrophy. There is no hydronephrosis. There are no urinary calculi. A Blanchard balloon within the bladder is present. The prostate has decreased in size since CT of November 16, 2019. There is no lymphadenopathy. No suspicious lesions within the visualized skeletal structures. Evaluation of the remainder of the abdomen and pelvis is suboptimal on this unenhanced exam. A 1.7 cm right hepatic lobe cyst is noted. There is no biliary or pancreatic ductal dilatation. Spleen, adrenal glands and pancreas are unremarkable. 3.1 cm infrarenal abdominal aortic aneurysm is present. There is mild dilatation of the bilateral common carotid arteries. There is no evidence for rupture. Large amount stool within the rectum is noted. There is a moderate amount stool within the colon. A loop of small bowel extends into the right inguinal hernia. There is no resultant bowel obstruction. No ascites. No acute fractures. IMPRESSION: 1. No urinary calculi or hydronephrosis. Interval decrease in size of the prosta te gland since CT of November 16, 2019. 2. Large amount of stool within the rectum. Moderate amount of stool within the colon. No bowel obstruction. 3. Right inguinal hernia which contains a loop of small bowel. No resultant bowel obstruction. 4. Mild right middle lobe airspace opacity which may reflect an infectious process. 5. 3.1 cm infrarenal abdominal aortic aneurysm
[2022-10-12] MEDS ORDERED: SODIUM CHLORIDE 0.9% 1000ML 250 ML IV ONE (19:15)
--- NOTE | 2022-10-12 19:22 | Communication Note ---
Date of Service: October 12, 2022 Contacted by nurse regarding new tachycardia. Arrived at bedside and the patient is slightly irritated at his television. He is otherwise in no acute d istress. He denies any active abdominal pain although reports intermittent abdominal pain in the right lower quadrant every 10 minutes. He does not per se feel better since admission but does not feel worse either. He denies any changes in the last couple of hours. Nurse reports ongoing loose stools throughout the day and minimal p.o. intake. The patient denies any chest pain. Hernia as per surgery this afternoon. Recommend outpatient management. Patient notes that when the surgeon reduced the hernia at bedside this was not the area of pain in question. On physical exam his abdomen is soft nontender nondistended. Per my assessment his vital signs at bedside were 102/59 heart rate 116 and 94% on room air. His cardiac exam reveals S1-S2 heard with a tachy, reg rhythm and no evidence of murmur. Lungs are clear to auscultation bilaterally with a normal respiratory effort. Skin is warm and dry and his extremities are warm and well-perfused. No gross focal neuromuscular deficits are seen. He is oriented to person place and time. Labs and diagnostics reviewed from earlier today including EKG just performed. There are no new ST changes to indicate ischemia and only the heart rate is increased when compared to prior EKG from yesterday. There are no new symptoms to indicate ACS. Discussed with nurse that we will repeat lab work now looking for any additional electrolyte abnormalities or worsening leukocytosis. We will give 250 cc bolus now followed by normal saline at 125 an hour overnight given ongoing diarrhea from cdiff infection and poor PO intake. We will pass along to morning attending. DO Timi
[2022-10-12 20:07] LABS: Basophils # (auto) 0.03 K/uL (0-0.2); Basophils % (auto) 0.1 %; Eosinophils # (auto) 0.01 K/uL (0-0.50); Hematocrit (blood only) 32.1 % (42.0-52.0); Hemoglobin 11.3 g/dl (14.0-18.0); Immature Granulocytes # (auto) 0.13 K/uL (0.01-0.20); Immature Granulocytes % (auto) 0.6 %; Lymphocytes # (auto) 1.62 K/uL (1.2-3.4); Lymphocytes % (auto) 7.3 %; Mean Corpuscular Hemoglobin 31.9 pg (25.0-34.0); Mean Corpuscular Hgb Conc 35.2 g/dL (32.0-36.0); Mean Corpuscular Volume 90.7 fL (80.0-100.0); Mean Platelet Volume 10.8 fL (9.4-12.4); Monocytes # (auto) 1.44 K/uL (0.11-0.59); Monocytes % (auto) 6.5 %; Neutrophils # (auto) 19.03 K/uL (1.40-6.50); Neutrophils % (auto) 85.5 %; Platelet Count 184 K/uL (130-400); RDW Coefficient of Variation 13.2 % (11.5-14.5); RDW Standard Deviation 44.2 fL (36.4-46.3); Red Blood Count 3.54 M/uL (4.70-6.10); White Blood Count 22.26 K/ul (4.8-10.8)
[2022-10-12 20:23] LABS: Albumin Level 3.6 gm/dl (3.4-5.0); Bilirubin,Total 0.9 mg/dl (0.2-1.0); Calcium 8.5 mg/dl (8.5-10.1); Magnesium 1.7 mg/dl (1.7-2.4)
[2022-10-12 20:29] LABS: Albumin Globulin Ratio 1.1 (0.9-2); Creatinine Clr Calc Pharmacy 43.1 ml/min; Est GFR (African American) 61.8 ml/min; Est GFR (Non-African American) 53.3 ml/min; Globulin 3.2 gm/dl (2.5-4.0); Phosphorus 2.1 mg/dl (2.5-4.9); Total Protein 6.8 gm/dl (6.0-8.3)
[2022-10-12] MEDS: SODIUM CHLORIDE 0.9% 500 ML IV SCH (21:19)
[2022-10-13] MEDS: SODIUM CHLORIDE 0.9% 500 ML IV SCH (03:09)
--- NOTE | 2022-10-13 05:35 | Communication Note ---
Date of Service: October 13, 2022 Made aware by RN of episodic sinus pauses. Patient sleeping with mouth open as per RN. SBP 90s Patient transferred to med telemetry last night for tachycardia. Atrial flutter/A. fib on the monitor AP Episodic sinus pauses New onset A. fib/flutter Possible SSS Decrease maintenance beta-raul dose from 50 mg BID to 12.5 mg BID for now given episodic sinus pauses and borderline BP TTE, Cardiology consult Re: New onset A. fib/a flutter, tachybradycardia Will relay to AM provider.
[2022-10-13] MEDS ORDERED: SODIUM CHLORIDE 0.9% 1000ML 1,000 ML IV ONE (06:03)
[2022-10-13] MEDS: MAGNESIUM SULFATE / D5W 1 GM/100 ML BAG IV SCH ×2 (06:16→08:20)
[2022-10-13 07:17] LABS: Hematocrit (blood only) 32.6 % (42.0-52.0); Hemoglobin 11.3 g/dl (14.0-18.0); Mean Corpuscular Hemoglobin 31.3 pg (25.0-34.0); Mean Corpuscular Hgb Conc 34.7 g/dL (32.0-36.0); Mean Corpuscular Volume 90.3 fL (80.0-100.0); Mean Platelet Volume 10.8 fL (9.4-12.4); Platelet Count 171 K/uL (130-400); RDW Coefficient of Variation 13.2 % (11.5-14.5); RDW Standard Deviation 43.6 fL (36.4-46.3); Red Blood Count 3.61 M/uL (4.70-6.10); White Blood Count 22.64 K/ul (4.8-10.8)
[2022-10-13 07:34] LABS: Prothrombin Time 20.5 Seconds (9.0-12.0)
--- NOTE | 2022-10-13 08:06 | Cardiology Consultation ---
Date of Consultation October 13, 2022 Assessment & Plan (1) Atrial fibrillation with RVR: 89-year-old male with new onset paroxysmal A. fib with RVR in the setting of acute illness. Patient is a poor historian Patient actively having discomfort in his right lower quadrant as well as diarrhea. Recent hospitalization due to UTI. EKGs and telemetry reviewed-imaging revealing paroxysmal A. fib with RVR in the 120s. Short sinus pauses also noted. Patient is asymptomatic. Agree with reduction in metoprolol tartrate to 12.5 mg twice daily (previously 50 mg BID)-okay to allow for higher heart rates in setting of acute illness/hypovolemia. No indications for permanent pacemaker at this time. Patient has 2 indications for anticoagulation including a prior history of DVT/PE as well as new onset paroxysmal A. fib. Echocardiogram showing hyperdynamic LV with an EF of greater than 70%. No new wall motion abnormalities. Agree with gentle hydration as patient is likely dehydrated. Recommend potassium goal 4.0 and mag goal of 2.0, replete as needed. Chronic mild elevation in troponin. Likely in the setting of acute illness and tachycardia. Unlikely to be related to ACS. Plan Case discussed with Dr. Johnson, will follow. Supervising Physician Co-Signing Physician Notes Supervising Physician Attestation: I have personally performed a history and physical examination on the patient. I agree with the physician educational program assistant's findings and plan as documented with the following additions. Subjective: Patient without subjective complaints Exam: CV: regular , no murmur, no edema Data: C diff gene and Toxin positive, 10/13/22 EKG performed 10/12/22: AF with RBBB. Assessment and Plan: C. difficile colitis Resultant volume depletion Paroxysmal atrial fibrillation, with episodes of bradycardia -Had been seen by general surgery for incidental findings of inguinal hernia, no surgery planned. -Cautious beta raul, metoprolol tartrate 12.5 mg BID -Coumadin 2.5 mg today, repeat INR in am. Piyush Johnson, DO History of Present Illness Reason for Consultation: Tachycardia/new onset atrial flutter Requesting Physician: Carol kevin Attending Physician: Deborah Frias MD History of Present Illness 89-year-old male who initially presented to the [facility] emergency department due to right lower quadrant pain. Patient was recently admitted from 10/05-10/07 due to acute confusion secondary to UTI. Patient carries a history of prostate carcinoma treated with Lupron and has chronic urinary retention with chronic Blanchard. Over the last few days he has been incontinent of stool developing right lower quadrant discomfort. CT of the abdomen pelvis: Urinary calculi or hydronephrosis, large amount of stool in the rectum. Moderate amount of stool within the colon. No obstruction. Right inguinal hernia no bowel obstruction. Mild right middle lobe airspace opacity which may reflect an infectious process. 3.1 cm i nfrarenal abdominal aortic aneurysm Overnight and into this morning patient started to develop tachycardic episodes on monitor. Initially felt to be due to dehydration and patient was treated with a 250 cc bolus of normal saline. Lab work showed a mild hyponatremia. Potassium 3.9. Magnesium 1.9. 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 Metoprolol Tartrate was decreased from 50 mg twice daily to 12.5 mg twice daily Echocardiogram: LVEF greater than 70%, LV hyperdynamic. No wall motion abnormalities. Mild aortic sclerosis without stenosis. No MR or TR . Prior to admission he was currently anticoagulated on warfarin due to history of PE. 10/13: Patient seen and examined at bedside. Chart and telemetry reviewed. Limited history due patient being a poor historian. Patient's main concern today was regarding abdominal discomfort-patient unable to elaborate on specifics. Denies chest pain or shortness of breath. No palpitations. Tele: AFIB 100-120s Past medical history Valvular heart disease, moderate TR and mild MR per echo 2019 Hypertension CKD stage III, baseline creatinine around 1.2-1.3 History of PE, anticoagulated on warfarin Chronic anemia with baseline hemoglobin around 11 History of prostate carcinoma treated with Lupron. 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 dementia Allergies Allergy/AdvReac Type Severity Reaction Status Date / Time Penicillins Allergy Unknown HAPPENED A Verified 10/11/22 19:24 LONG TIME AGO Home Medications Medication Instructions Recorded Confirmed Type warfarin 5 mg tablet 5 mg PO [id number] 08/25/19 10/11/22 History metoprolol tartrate 50 mg tablet 50 mg PO Q12H 1 month #60 tabs 09/12/19 10/11/22 Rx warfarin 5 mg tablet 10 mg PO [id number] 01/28/23 01/28/23 History Patient History Medical History Anticoagulant long-term use Atrial fibrillation CKD (chronic kidney disease), stage III H/O deep venous thrombosis History of pulmonary embolism Malignant neoplasm of prostate Prolonged VT interval Urinary incontinence Urinary retention Surgical History History of tonsillectomy Family History Daughter Diabetes Other Family history non-contributory Social History Smoking Status: Former smoker Tobacco Type: Cigarettes Second Hand Exposure: No; Do You Dip or Chew Tobacco: No; Hx Alcohol Use: No Hx Substance Use: No Preferred Language: Latvian Communication Ability: Effective Drug And Alcohol Counselor Required: No Beliefs That Will Affect Care: None marital status: Current Living Situation: Spouse and Family Current Living Situation Comment: lives w/ and dtr Other Information That Helps Us Care for You: No Feels Safe at Home: Yes Safety Concerns: Feels Safe At This Time Assistive Devices: Cane, Glasses and Walker Review of Systems Review of Systems: All systems reviewed & are unremarkable except as noted in HPI & below Physical Exam Constitutional: + thin and + in distress (Pain noted during time of exam); no acute distress Neck: normal visual inspection and trachea midline Respiratory: normal respiratory effort, lungs clear to auscultation Auscultation: no rales, no rhonchi and no wheezes Cardiovascular: Rate/Rhythm: + tachycardic and + irregularly irregular Heart Sounds: + murmur (+3/6 systolic murmur) Vessels: no JVD Extremities: no edema Gastrointestinal (Abdomen): Inspection/Auscultation: normal bowel sounds; abdomen not distended Percussion/Palpation: + abdomen tender Skin: no rashes, warm and dry Psychiatric: Orientation: alert and oriented to place Results & Data ([facility]) Vital Signs (Past 12 Hours) Vital Signs Temp Pulse Resp BP BP Pulse Ox O2 Del Method 10/13/22 07:10 37.9 C H 90 18 95/48 L 94 Room Air 10/13/22 03:03 36.8 C 68 16 94/49 L 95 Room Air 10/12/22 23:53 37 C 100 H 18 109/72 95 Room Air 10/12/22 23:23 Room Air 10/12/22 23:12 37 C 102 H 16 104/55 L 94 Room Air Laboratory Results Cardiac Enzymes 10/12/22 Range/Units 19:32 AST 15 (13-39) U/L Coagulation 10/13/22 Range/Units 07:00 PT 20.5 H (9.0-12.0) Seconds CBC 10/12/22 10/13/22 Range/Units 19:32 07:00 WBC 22.26 H D 22.64 H (4.8-10.8) K/ul RBC 3.54 L 3.61 L (4.70-6.10) M/uL Hgb 11.3 L 11.3 L (14.0-18.0) g/dl Hct 32.1 L 32.6 L (42.0-52.0) % Plt Count 184 171 (130-400) K/uL Neut # (Auto) 19.03 H (1.40-6.50) K/uL Lymph # (Auto) 1.62 (1.2-3.4) K/uL [place] # (Auto) 1.44 H (0.11-0.59) K/uL Eos # (Auto) 0.01 (0-0.50) K/uL Baso # (Auto) 0.03 (0-0.2) K/uL Comprehensive Metabolic Panel 10/12/22 10/13/22 Range/Units 19:32 07:00 Sodium 133 L 134 L (136-145) mmol/L Potassium 4.0 3.9 (3.5-5.1) mmol/L Chloride 102 104 (98-107) mmol/L Carbon Dioxide 26 25 (21-32) mmol/L BUN 18 18 (6-23) mg/dl Creatinine 1.20 1.19 (0.6-1.4) mg/dl Glucose 126 H 114 H (70-99(Fasting)) mg/dl Calcium 8.5 8.8 (8.5-10.1) mg/dl AST 15 (13-39) U/L ALT 7 (7-52) U/L Alkaline Phosphatase 54 (34-104) U/L Total Protein 6.8 (6.0-8.3) gm/dl Albumin 3.6 (3.4-5.0) gm/dl Intake and Output 10/12/22 10/13/22 10/13/22 22:59 06:59 14:59 Intake Total 670 / 1860 950 / 1860 600 / 600 Output Total 235 / 691 450 / 691 Balance 435 / 1169 500 / 1169 600 / 600 Intake: IV 250 / 750 500 / 750 600 / 600 Magnesium Sulfate / D5w 1 gm In 100 / 100 100 ml @ 50 mls/hr IV Q2H [facility] Rx#:[id number] Sodium Chloride 0.9% 1000ML 250 250 / 250 ml @ 999 mls/hr IV .Q16M ONE Rx#:[id number] Sodium Chloride 0.9% 500 ml @ 500 / 500 500 / 500 125 mls/hr IV .Q4H [facility] Rx#: [id number] Oral 420 / 1110 450 / 1110 Output: Urine Amount (Catheter) 225 / 675 450 / 675 Blanchard/Indwelling 225 / 675 450 / 675 # Bowel Movements Other: Weight 80.8 kg Weight Measurement Method Built in [facility]
[2022-10-13 08:15] LABS: Calcium 8.8 mg/dl (8.5-10.1); Potassium 3.9 mmol/L (3.5-5.1)
[2022-10-13 08:20] LABS: BUN Creatinine Ratio 15.1 (10-20); Creatinine Clr Calc Pharmacy 43.5 ml/min; Est GFR (African American) 62.4 ml/min; Est GFR (Non-African American) 53.8 ml/min
[2022-10-13] MEDS: METOPROLOL TARTRATE 25 MG TAB PO SCH ×2 (09:40→22:11)
--- NOTE | 2022-10-13 09:55 | Electrocardiogram Report ---
Test Reason : Blood Pressure : / mmHG Vent. Rate : 113 BPM Atrial Rate : 133 BPM P-R Int : 000 ms QRS Dur : 130 ms QT Int : 354 ms P-R-T Axes : 000 053 -22 degrees QTc Int : 485 ms Wide QRS rhythm Right bundle branch block T wave abnormality, consider inferior ischemia Abnormal ECG When compared with ECG of 11-OCT-2022 16:45, Wide QRS rhythm has replaced Sinus rhythm Vent. rate has increased BY 39 BPM Confirmed by Omar Hoyt ([id number]) on 10/13/2022 9:55:19 AM Referred By: REFERRED SELF Confirmed By:Omar Hoyt
[2022-10-13 09:56] LABS: Cdiff Toxin B Gene (2yr or >) Positive Cdiff Gene (Neg)
[2022-10-13 09:57] LABS: Cdiff Antigen Positive
[2022-10-13 09:58] LABS: Cdiff Toxin A+B Positive Cdiff Toxin (Negative)
[2022-10-13] MEDS ORDERED: FIDAXOMICIN 200 MG TAB PO SCH (10:30)
[2022-10-13] MEDS: VANCOMYCIN HCL 500 MG/10 ML SOLN PO SCH ×2 (11:56→17:02)
[2022-10-13] MEDS: RASPBERRY SYRUP 5 ML UDP PO SCH ×2 (11:56→17:02)
--- NOTE | 2022-10-13 14:35 | Electrocardiogram Report ---
Test Reason : Blood Pressure : / mmHG Vent. Rate : 078 BPM Atrial Rate : 097 BPM P-R Int : 000 ms QRS Dur : 138 ms QT Int : 420 ms P-R-T Axes : 000 045 028 degrees QTc Int : 478 ms Probable Normal sinus rhythm with 1st degree A-V block Blocked PACs Right bundle branch block Abnormal ECG When compared with ECG of 12-OCT-2022 18:08, Normal sinus rhythm has replaced Wide QRS rhythm Confirmed by Omar Hoyt ([id number]) on 10/13/2022 2:35:02 PM Referred By: REFERRED SELF Confirmed By:Omar Hoyt
--- NOTE | 2022-10-13 14:59 | Hospitalist Progress Note ---
Date of Service October 13, 2022 Assessment & Plan (1) C. difficile diarrhea: (2) Abdominal pain: Plan: Present with right lower abdominal pain followed by small amount of diarrhea Testing positive for C diff CT abdomen showed large amount of stool within the rectum. Moderate amount of stool within the colon. No bowel obstruction. Right inguinal hernia which contains a loop of small bowel. WBC elevated at 22K and BP in the low side Will start on Vanco 500mg q6h for now for possible fulminant C. diff Continue gentle IVF Continue monitor CBC and electrolytes Right inguinal hernia Complaint of intermittent right lower side abdominal pain CT abd/pelvis showed right inguinal hernia which contains a loop of small bowel. No resultant bowel obstruction. Imaging finding discussed with and patient at bedside Surgery consulted - not an ideal candidate for repair but if they are interested, this can be pursued via an outpatient evaluation. No need for surgical intervention currently. A fib with RVR New onset of Afib mostly due to acute illness ECHO showed no new wall motion abnormality with EF greather than 70% Continue metoprolol 12.5 mg BID cardiology on board Urinary retention with chronic Blanchard Abnormal UA Urine cx grew gamma step not enterococcus with low count - No sensitivity to follow Will hold on antibiotic Chronic Elevated troponin: Denies chest pain and shortness of breath EKG showed no acute ischemic changes Continue monitor closely History of pulmonary embolism: Chronically anticoagulated on warfarin INR: 2 today Continue warfarin Hypertension: BP in the Low side Metoprolol tartrate decreased to 12.5 mg BID due to low BP Continue monitor BP CKD (chronic kidney disease), stage III: Creatinine stable, Baseline 1.2-1.3 Chronic anemia: Hgb: 11.3 stable DVT Prophylaxis Anticoagulated on warfarin. Code status DNR Admission and Anticipated Discharge Date Admission Date: October 12, 2022 Subjective Pt was seen and examined for follow of Cdiff Lying in chair with no acute distress He continued to have recurrent episodes of diarrhea He was tested positive for Cdiff He denies any chest pain, palpitation, fever and SOB Review of Systems Review of Systems: All systems reviewed & are unremarkable except as noted in Subjective Physical Exam Physical Exam: General- No acute distress Head- atraumatic Eyes- PERRL, EOMI, ENT- oropharynx clear Neck- supple, no JVD Lungs- clear to auscultation Heart- regular rhythm; no murmur Abdomen- normal bowel sounds, soft, nontender Extremities- no calf tenderness Neuro- alert, oriented x 3; PERRL, EOMI; no facial palsy; no dysarthria Skin- warm & dry Results & Data Results & Data ([facility]) Vital Signs (Past 12 Hours) Vital Signs Temp Pulse Pulse Resp BP Pulse Ox O2 Del Method 10/13/22 11:57 36.8 C 78 18 92/54 L 94 Room Air 10/13/22 08:00 Room Air 10/13/22 06:00 91 H 10/13/22 09:39 36.9 C 108 H 20 105/66 99 Room Air 10/13/22 07:10 37.9 C H 90 18 95/48 L 94 Room Air 10/13/22 03:03 36.8 C 68 16 94/49 L 95 Room Air
[2022-10-13] MEDS ORDERED: WARFARIN SOD 2.5 MG TAB PO SCH (16:00)
[2022-10-14] MEDS: RASPBERRY SYRUP 5 ML UDP PO SCH ×5 (01:49→23:16)
[2022-10-14] MEDS: VANCOMYCIN HCL 500 MG/10 ML SOLN PO SCH ×5 (01:49→23:17)
--- NOTE | 2022-10-14 07:53 | Cardiology Progress Note ---
Date of Service October 14, 2022 Assessment & Plan (1) Atrial fibrillation with RVR: Plan: 89-year-old male with new onset paroxysmal A. fib with RVR in the setting of acute illness. Patient is a poor historian Admitted due to patient having discomfort in his right lower quadrant as well as diarrhea. Recent hospitalization due to UTI. Currently pain free. EKGs and telemetry reviewed-imaging revealing paroxysmal A. fib with RVR in the 120s. No rate controlled in the 90s. No significant pauses noted. Patient is asymptomatic. Agree with reduction in metoprolol tartrate to 12.5 mg twice daily (previously 50 mg BID)-okay to allow for higher heart rates in setting of acute illness/hypovolemia. No indications for permanent pacemaker at this time. Patient has 2 indications for anticoagulation including a prior history of DVT/PE as well as new onset paroxysmal A. fib. INR this morning was subtherapeutic, 1.7. Patient to receive 5 mg of Coumadin this evening. Will repeat an INR in the morning. Echocardiogram showing hyperdynamic LV with an EF of greater than 70%. No new wall motion abnormalities. Agree with gentle hydration as patient is likely dehydrated. Recommend potassium goal 4.0 and mag goal of 2.0, replete as needed. Chronic mild elevation in troponin. Likely in the setting of acute illness and tachycardia. Unlikely to be related to ACS. Had been seen by general surgery for incidental findings of inguinal hernia, no surgery planned. Plan Case discussed with Dr. Johnson, will follow. Admission and Anticipated Discharge Date Admission Date: October 12, 2022 Supervising Physician Co-Signing Physician Notes Cardiology attending: I personally performed a history and physical exam. Agree with findings and plan as outlined by HAMIDA Bales with additions as noted below. Subjective: Patient more alert today. No cardiac complaints. Atrial fibrillation 80s to 90s noted. A 4 beat run of nonsustained ventricular tachycardia observed. Impression C. difficile colitis Atrial fibrillation -Continue metoprolol, Coumadin, Coumadin dose increased to 5 mg daily. Subjective 89-year-old male with new onset paroxysmal A. fib with RVR and short pauses in the setting of acute diarrheal illness accompanied by right lower quadrant pain. 10/13: Telemetry revealing A. fib with RVR in the 120s. Patient also noted to have short pauses. Patient asymptomatic with from a cardiac standpoint but was having pain in the right lower quadrant with active diarrhea. C. difficile positive. Metoprolol tartrate reduced from 50 mg twice daily to 12.5 mg twice daily. Restarted on his Coumadin (was on this previously due to history of PE/DVT). Echocardiogram revealing a hyperdynamic LV with an EF greater than 70%. No new wall motion abnormalities. 10/14: Patient seen and examined at bedside. Chart and telemetry reviewed. Telemetry: AFIB 90s INR 1.7 (10/14) Lab work: renal function stable. Mild hyponatremia (134) Upon entrance into the room patient resting in bed, asleep. Woke easily. No acute CV concerns overnight. Denies abdominal pain. Patient is a poor historian. Review of Systems Review of Systems: All systems reviewed & are unremarkable except as noted in HPI & below Physical Exam Constitutional: + thin; no acute distress Neck: normal visual inspection and trachea midline Respiratory: normal respiratory effort, lungs clear to auscultation Auscultation: no rales, no rhonchi and no wheezes Cardiovascular: Rate/Rhythm: regular rate and + irregularly irregular Heart Sounds: + murmur (+3/6 systolic murmur) Vessels: no JVD Extremities: no edema Gastrointestinal (Abdomen): Inspection/Auscultation: normal bowel sounds; abdomen not distended Percussion/Palpation: + abdomen tender Skin: no rashes, warm and dry Psychiatric: Orientation: alert and cooperative Results & Data ([facility]) Vital Signs (Past 12 Hours) Vital Signs Temp Pulse Pulse Resp BP BP Pulse Ox 10/14/22 07:33 36.5 C 89 16 115/67 97 10/14/22 05:59 92 H 10/14/22 03:00 36.6 C 87 20 93/47 L 97 10/13/22 23:00 78 10/13/22 22:00 37.1 C 93 H 20 92/46 L 96 10/13/22 19:51 36.7 C 91 H 20 96/59 L 95 O2 Del Method 10/14/22 07:33 Room Air 10/14/22 05:59 10/14/22 03:00 Room Air 10/13/22 23:00 10/13/22 22:00 Room Air 10/13/22 19:51 Room Air Laboratory Results Cardiac Enzymes 10/14/22 Range/Units 07:38 AST 23 (13-39) U/L Coagulation 10/14/22 Range/Units 07:38 PT 17.2 H (9.0-12.0) Seconds CBC 10/14/22 Range/Units 07:38 WBC 23.91 H (4.8-10.8) K/ul RBC 3.60 L (4.70-6.10) M/uL Hgb 11.2 L (14.0-18.0) g/dl Hct 32.2 L (42.0-52.0) % Plt Count 161 (130-400) K/uL Neut # (Auto) 20.58 H (1.40-6.50) K/uL Lymph # (Auto) 1.98 (1.2-3.4) K/uL [place] # (Auto) 1.15 H (0.11-0.59) K/uL Eos # (Auto) 0.03 (0-0.50) K/uL Baso # (Auto) 0.03 (0-0.2) K/uL Comprehensive Metabolic Panel 10/14/22 Range/Units 07:38 Sodium 134 L (136-145) mmol/L Potassium 3.6 (3.5-5.1) mmol/L Chloride 105 (98-107) mmol/L Carbon Dioxide 23 (21-32) mmol/L BUN 19 (6-23) mg/dl Creatinine 1.11 (0.6-1.4) mg/dl Glucose 108 H (70-99(Fasting)) mg/dl Calcium 8.8 (8.5-10.1) mg/dl AST 23 (13-39) U/L ALT 8 (7-52) U/L Alkaline Phosphatase 50 (34-104) U/L Total Protein 6.3 (6.0-8.3) gm/dl Albumin 3.1 L (3.4-5.0) gm/dl Intake and Output 10/13/22 10/14/22 10/14/22 22:59 06:59 14:59 Intake Total 2019 2020 Output Total 153 / 482 100 / 482 Balance -33 / 1538 900 / 1538 Intake: IV 1000 / 1700 Sodium Chloride 0.9% 1000ML 1, 1000 / 1000 000 ml @ 60 mls/hr IV .[id number] [facility] Rx#:[id number] Oral 120 / 320 Output: Urine Amount (Catheter) 150 / 475 100 / 475 Blanchard/Indwelling 150 / 475 100 / 475 # Bowel Movements 3 / 7 Other: Other Intake Source sips Weight 81.8 kg
[2022-10-14] MEDS: METOPROLOL TARTRATE 25 MG TAB PO SCH ×2 (07:57→20:02)
[2022-10-14 08:04] LABS: Hematocrit (blood only) 32.2 % (42.0-52.0); Hemoglobin 11.2 g/dl (14.0-18.0); Mean Corpuscular Hemoglobin 31.1 pg (25.0-34.0); Mean Corpuscular Hgb Conc 34.8 g/dL (32.0-36.0); Mean Corpuscular Volume 89.4 fL (80.0-100.0); Mean Platelet Volume 10.8 fL (9.4-12.4); Platelet Count 161 K/uL (130-400); RDW Coefficient of Variation 13.2 % (11.5-14.5); RDW Standard Deviation 43.8 fL (36.4-46.3); White Blood Count 23.91 K/ul (4.8-10.8)
[2022-10-14 08:12] LABS: Albumin Level 3.1 gm/dl (3.4-5.0); BUN Creatinine Ratio 17.1 (10-20); Calcium 8.8 mg/dl (8.5-10.1); Creatinine Clr Calc Pharmacy 46.6 ml/min; Est GFR (African American) 67.9 ml/min; Est GFR (Non-African American) 58.6 ml/min; Globulin 3.2 gm/dl (2.5-4.0); Potassium 3.6 mmol/L (3.5-5.1); Total Protein 6.3 gm/dl (6.0-8.3)
[2022-10-14 08:20] LABS: INR 1.7 (0.9-1.1); Prothrombin Time 17.2 Seconds (9.0-12.0)
[2022-10-14 08:24] LABS: Basophils # (auto) 0.03 K/uL (0-0.2); Basophils % (auto) 0.1 %; Echinocytes 1+; Eosinophils # (auto) 0.03 K/uL (0-0.50); Eosinophils % (auto) 0.1 %; Immature Granulocytes # (auto) 0.14 K/uL (0.01-0.20); Immature Granulocytes % (auto) 0.6 %; Lymphocytes # (auto) 1.98 K/uL (1.2-3.4); Lymphocytes % (auto) 8.3 %; Monocytes # (auto) 1.15 K/uL (0.11-0.59); Monocytes % (auto) 4.8 %; Neutrophils # (auto) 20.58 K/uL (1.40-6.50); Neutrophils % (auto) 86.1 %
[2022-10-14] MEDS: WARFARIN SOD 5 MG TAB PO SCH (15:35)
--- NOTE | 2022-10-14 17:18 | Hospitalist Progress Note ---
Date of Service October 14, 2022 Assessment & Plan (1) C. difficile diarrhea: (2) Abdominal pain: Plan: Present with right lower abdominal pain followed by small amount of diarrhea Testing positive for C diff CT abdomen showed large amount of stool within the rectum. Moderate amount of stool within the colon. No bowel obstruction. Right inguinal hernia which contains a loop of small bowel. WBC elevated at 23K and BP in the low side Continue Vanco 500mg q6h for now for possible fulminant C. diff, once improves consider to adjust the vanco dose Continue encouraging him to increase PO intake Continue monitor CBC and electrolytes Diarrhea improves Right inguinal hernia Complaint of intermittent right lower side abdominal pain CT abd/pelvis showed right inguinal hernia which contains a loop of small bowel. No resultant bowel obstruction. Imaging finding discussed with and patient at bedside Surgery consulted - not an ideal candidate for repair but if they are interested, this can be pursued via an outpatient evaluation. No need for surgical intervention currently. 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 Code status DNR Admission and Anticipated Discharge Date Admission Date: October 12, 2022 Subjective Pt was seen and examined for follow of C diff Lying in chair with no acute distress watching TV Diarrhea a little better today because he had 5 episodes so far He denies any chest pain, palpitation, fever and SOB Review of Systems Review of Systems: All systems reviewed & are unremarkable except as noted in Subjective Physical Exam Physical Exam: General- No acute distress Head- atraumatic Eyes- PERRL, EOMI, ENT- oropharynx clear Neck- supple, no JVD Lungs- clear to auscultation Heart- irregular rhythm; +murmur Abdomen- normal bowel sounds, soft, nontender Extremities- no calf tenderness Neuro- alert, oriented x 3; PERRL, EOMI; no facial palsy; no dysarthria Skin- warm & dry Results & Data Results & Data ([facility]) Vital Signs (Past 12 Hours) Vital Signs Temp Pulse Pulse Resp BP Pulse Ox Pulse Ox 10/14/22 15:20 37.0 C 96 H 18 118/66 95 10/14/22 14:10 86 10/14/22 14:00 90 10/14/22 11:07 37.0 C 96 H 18 122/66 95 10/14/22 07:55 10/14/22 07:33 36.5 C 89 16 115/67 97 10/14/22 05:59 92 H O2 Del Method O2 Del Method O2 Flow Rate 10/14/22 15:20 Room Air 10/14/22 14:10 10/14/22 14:00 Room Air 0 10/14/22 11:07 Room Air 10/14/22 07:55 Room Air 10/14/22 07:33 Room Air 10/14/22 05:59
[2022-10-15] MEDS: RASPBERRY SYRUP 5 ML UDP PO SCH ×3 (05:16→17:22)
[2022-10-15] MEDS: VANCOMYCIN HCL 500 MG/10 ML SOLN PO SCH ×3 (05:17→17:22)
--- NOTE | 2022-10-15 07:50 | Cardiology Progress Note ---
Date of Service October 15, 2022 Assessment & Plan (1) Atrial fibrillation with RVR: Plan: 89-year-old male with new onset paroxysmal A. fib with RVR in the setting of acute illness. Patient is a poor historian Admitted due to patient having discomfort in his right lower quadrant as well as diarrhea. Recent hospitalization due to UTI. Currently pain free. EKGs and telemetry reviewed-imaging revealing paroxysmal A. fib with RVR in the 120s. No rate controlled in the 90s. No significant pauses noted. Patient is asymptomatic. Agree with reduction in metoprolol tartrate to 12.5 mg twice daily (previously 50 mg BID)-okay to allow for higher heart rates in setting of acute illness/hypovolemia. No indications for permanent pacemaker at this time. Patient has 2 indications for anticoagulation including a prior history of DVT/PE as well as new onset paroxysmal A. fib. INR this morning was subtherapeutic, 1.8. Patient to receive 5 mg of Coumadin this evening. Plan on repeat an INR in the morning. Echocardiogram showing hyperdynamic LV with an EF of greater than 70%. No new wall motion abnormalities. Agree with gentle hydration as patient is likely dehydrated. Recommend potassium goal 4.0 and mag goal of 2.0, replete as needed. Chronic mild elevation in troponin. Likely in the setting of acute illness and tachycardia. Unlikely to be related to ACS. Had been seen by general surgery for incidental findings of inguinal hernia, no surgery planned. Plan Case discussed with Dr. Johnson, will follow. Admission and Anticipated Discharge Date Admission Date: October 12, 2022 Supervising Physician Co-Signing Physician Notes Cardiology attending: I personally performed a history and physical exam. Agree with findings and plan as outlined by HAMIDA Bales with additions as noted below. Subjective: Patient feeling subjectively improved Exam: Irregular rhythm, no abdominal discomfort, no edema Data: Telemetry reveals atrial fibrillation in the 80s INR 1.8 Impression: Atrial fibrillation, C. difficile colitis Continue low-dose metoprolol, Coumadin, dose recently increased, potassium supplemented today for potassium level of 3.5. Subjective 89-year-old male with new onset paroxysmal A. fib with RVR and short pauses in the setting of acute diarrheal illness accompanied by right lower quadrant pain. 10/13: Telemetry revealing A. fib with RVR in the 120s. Patient also noted to have short pauses. Patient asymptomatic with from a cardiac standpoint but was having pain in the right lower quadrant with active diarrhea. C. difficile positive. Metoprolol tartrate reduced from 50 mg twice daily to 12.5 mg twice daily. Restarted on his Coumadin (was on this previously due to history of PE/DVT). Echocardiogram revealing a hyperdynamic LV with an EF greater than 70%. No new wall motion abnormalities. 10/14: Telemetry: AFIB 90s INR 1.7 (10/14)- given 5 mg of Coumadin Lab work: renal function stable. Mild hyponatremia (134) 10/15: Patient seen and examined at bedside. Chart and telemetry reviewed. Tele: AFIB 60-80s Labs: Unremarkable, INR 1.8 (10/15) Upon entrance into the room patient sleeping in bed. Woke easily- seems more lucid today. No acute CV or GI concerns. Remains asymptomatic with AFIB. Review of Systems Review of Systems: All systems reviewed & are unremarkable except as noted in HPI & below Physical Exam Constitutional: + thin; no acute distress Neck: normal visual inspection and trachea midline Respiratory: normal respiratory effort, lungs clear to auscultation Auscultation: no rales, no rhonchi and no wheezes Cardiovascular: Rate/Rhythm: regular rate, + tachycardic and + irregularly irregular Heart Sounds: + murmur (+3/6 systolic murmur) Vessels: no JVD Extremities: no edema Gastrointestinal (Abdomen): Inspection/Auscultation: normal bowel sounds; abdomen not distended Percussion/Palpation: + abdomen tender Skin: no rashes, warm and dry Psychiatric: Orientation: alert, oriented to place and cooperative Results & Data ([facility]) Vital Signs (Past 12 Hours) Vital Signs Temp Pulse Pulse Resp BP BP Pulse Ox 10/15/22 07:34 37.0 C 91 H 18 107/67 97 10/15/22 07:23 74 10/15/22 05:27 36.9 C 71 18 102/62 98 10/14/22 22:00 36.8 C 103 H 18 98/61 L 95 10/14/22 20:03 37.6 C H 93 H 18 98/56 L 94 O2 Del Method 10/15/22 07:34 Room Air 10/15/22 07:23 10/15/22 05:27 Room Air 10/14/22 22:00 Room Air 10/14/22 20:03 Room Air Laboratory Results Coagulation 10/15/22 Range/Units 07:40 PT 18.2 H (9.0-12.0) Seconds CBC 10/15/22 Range/Units 07:49 WBC 19.24 H (4.8-10.8) K/ul RBC 3.43 L (4.70-6.10) M/uL Hgb 10.8 L (14.0-18.0) g/dl Hct 30.6 L (42.0-52.0) % Plt Count 166 (130-400) K/uL Neut # (Auto) 16.04 H (1.40-6.50) K/uL Lymph # (Auto) 1.89 (1.2-3.4) K/uL [place] # (Auto) 1.10 H (0.11-0.59) K/uL Eos # (Auto) 0.05 (0-0.50) K/uL Baso # (Auto) 0.02 (0-0.2) K/uL Comprehensive Metabolic Panel 10/15/22 Range/Units 07:40 Sodium 132 L (136-145) mmol/L Potassium 3.5 (3.5-5.1) mmol/L Chloride 103 (98-107) mmol/L Carbon Dioxide 22 (21-32) mmol/L BUN 15 (6-23) mg/dl Creatinine 0.98 (0.6-1.4) mg/dl Glucose 103 H (70-99(Fasting)) mg/dl Calcium 8.4 L (8.5-10.1) mg/dl Intake and Output 10/14/22 10/15/22 10/15/22 22:59 06:59 14:59 Intake Total 60 / 60 Output Total 201 / 829 400 / 829 Balance -201 / -769 -340 / -769 Intake: Tube Feeding 60 / 60 Output: Urine 400 / 400 Urine Amount (Catheter) 200 / 425 Blanchard/Indwelling 200 / 425 # Bowel Movements 1 / 4 Other: Other Intake Source SIPS SIPS Weight 82.9 kg Weight Measurement Method Built in [facility]
[2022-10-15] MEDS: METOPROLOL TARTRATE 25 MG TAB PO SCH ×2 (07:54→20:03)
[2022-10-15 08:22] LABS: Basophils # (auto) 0.02 K/uL (0-0.2); Basophils % (auto) 0.1 %; Eosinophils # (auto) 0.05 K/uL (0-0.50); Eosinophils % (auto) 0.3 %; Hematocrit (blood only) 30.6 % (42.0-52.0); Hemoglobin 10.8 g/dl (14.0-18.0); Immature Granulocytes # (auto) 0.14 K/uL (0.01-0.20); Immature Granulocytes % (auto) 0.7 %; Lymphocytes # (auto) 1.89 K/uL (1.2-3.4); Lymphocytes % (auto) 9.8 %; Mean Corpuscular Hemoglobin 31.5 pg (25.0-34.0); Mean Corpuscular Hgb Conc 35.3 g/dL (32.0-36.0); Mean Corpuscular Volume 89.2 fL (80.0-100.0); Mean Platelet Volume 11.1 fL (9.4-12.4); Monocytes % (auto) 5.7 %; Neutrophils # (auto) 16.04 K/uL (1.40-6.50); Neutrophils % (auto) 83.4 %; Platelet Count 166 K/uL (130-400); RDW Coefficient of Variation 13.2 % (11.5-14.5); RDW Standard Deviation 43.6 fL (36.4-46.3); Red Blood Count 3.43 M/uL (4.70-6.10); White Blood Count 19.24 K/ul (4.8-10.8)
[2022-10-15 08:28] LABS: BUN Creatinine Ratio 15.3 (10-20); Calcium 8.4 mg/dl (8.5-10.1); Creatinine Clr Calc Pharmacy 52.8 ml/min; Est GFR (African American) 78.9 ml/min; Est GFR (Non-African American) 68.1 ml/min; Magnesium 1.9 mg/dl (1.7-2.4); Phosphorus 2.2 mg/dl (2.5-4.9); Potassium 3.5 mmol/L (3.5-5.1)
[2022-10-15 08:52] LABS: INR 1.8 (0.9-1.1); Prothrombin Time 18.2 Seconds (9.0-12.0)
--- NOTE | 2022-10-15 08:57 | Hospitalist Progress Note ---
Date of Service October 15, 2022 Assessment & Plan (1) C. difficile diarrhea: (2) Abdominal pain: Plan: Presents with right lower abdominal pain followed by small amount of diarrhea Testing positive for C diff CT abdomen showed large amount of stool within the rectum. Moderate amount of stool within the colon. No bowel obstruction. Right inguinal hernia which contains a loop of small bowel. WBC elevated at 23K and BP in the low side Continue Vanco 500mg q6h for now for possible fulminant C. diff, once improves consider to adjust the vanco dose Continue encouraging him to increase PO intake Continue monitor CBC and electrolytes Diarrhea improves Right inguinal hernia Complaint of intermittent right lower side abdominal pain CT abd/pelvis showed right inguinal hernia which contains a loop of small bowel. No resultant bowel obstruction. Imaging finding discussed with and patient at bedside Surgery consulted - not an ideal candidate for repair but if they are interested, this can be pursued via an outpatient evaluation. No need for surgical intervention currently. A fib with RVR New onset of Afib mostly due to acute illness ECHO showed no new wall motion abnormality with EF greater than 70% cardiology following Continue metoprolol 12.5 mg BID (decreased dose) already on coumadin for hx PE Urinary retention with chronic Blanchard Abnormal UA Urine cx grew gamma strep not enterococcus with low count - No sensitivity to follow Continue to hold on antibiotic Chronic Elevated troponin: Denies chest pain and shortness of breath EKG showed no acute ischemic changes Continue monitor closely History of pulmonary embolism: Chronically anticoagulated on warfarin INR: 1.8 today Continue warfarin Continue monitor PT/INR Hypertension: BP in the Low side Metoprolol tartrate decreased to 12.5 mg BID due to low BP Continue monitor BP CKD (chronic kidney disease), stage III: Creatinine stable, Baseline 1.2-1.3 Chronic anemia: Hgb: 11.2 stable DVT Prophylaxis Anticoagulated on warfarin. Code status DNR Admission and Anticipated Discharge Date Admission Date: October 12, 2022 Subjective Pt was seen in follow of C diff, Afib w/ RVR (on coumadin) Lying in bed with in no acute distress, eating lunch He denies any chest pain, palpitation, fever or shortness of breath Reports diarrhea is improving but he is a poor historian, per RN it seems improved Review of Systems Review of Systems: All systems reviewed & are unremarkable except as noted in Subjective Physical Exam Physical Exam: General- elderly M in no acute distress Head- atraumatic Eyes- PERRL, EOMI ENT- oropharynx clear Neck- supple, no JVD Lungs- clear to auscultation Heart- irregular rhythm; +murmur Abdomen- normal bowel sounds, soft, nontender Extremities- no calf tenderness Neuro- awake and alert, PERRL, EOMI; no facial palsy; no dysarthria, moves extremities Skin- warm & dry Results & Data Results & Data ([facility]) Vital Signs (Past 12 Hours) Vital Signs Temp Pulse Pulse Resp BP BP Pulse Ox 10/15/22 07:34 37.0 C 91 H 18 107/67 97 10/15/22 07:23 74 10/15/22 05:27 36.9 C 71 18 102/62 98 10/14/22 22:00 36.8 C 103 H 18 98/61 L 95 O2 Del Method 10/15/22 07:34 Room Air 10/15/22 07:23 10/15/22 05:27 Room Air 10/14/22 22:00 Room Air Laboratory Results 10/15/22 10/15/22 10/15/22 Range/Units 07:49 07:40 07:40 WBC 19.24 H (4.8-10.8) K/ul RBC 3.43 L (4.70-6.10) M/uL Hgb 10.8 L (14.0-18.0) g/dl Hct 30.6 L (42.0-52.0) % MCV 89.2 (80.0-100.0) fL MCH 31.5 (25.0-34.0) pg MCHC 35.3 (32.0-36.0) g/dL RDW Std Deviation 43.6 (36.4-46.3) fL RDW Coeff of Sangeetha 13.2 (11.5-14.5) % Plt Count 166 (130-400) K/uL MPV 11.1 (9.4-12.4) fL Immature Gran % (Auto) 0.7 % Neut % (Auto) 83.4 % Lymph % (Auto) 9.8 % Hale % (Auto) 5.7 % Eos % (Auto) 0.3 % Baso % (Auto) 0.1 % Neut # (Auto) 16.04 H (1.40-6.50) K/uL Lymph # (Auto) 1.89 (1.2-3.4) K/uL Hale # (Auto) 1.10 H (0.11-0.59) K/uL Eos # (Auto) 0.05 (0-0.50) K/uL Baso # (Auto) 0.02 (0-0.2) K/uL Immature Gran # (Auto) 0.14 (0.01-0.20) K/uL PT 18.2 H (9.0-12.0) Seconds INR 1.8 H (0.9-1.1) Sodium 132 L (136-145) mmol/L Potassium 3.5 (3.5-5.1) mmol/L Chloride 103 (98-107) mmol/L Carbon Dioxide 22 (21-32) mmol/L Anion Gap 7 (3-11) BUN 15 (6-23) mg/dl Creatinine 0.98 (0.6-1.4) mg/dl Est Cr Clr Drug Dosing 52.8 ml/min Est GFR ( Amer) 78.9 ml/min Est GFR (Non-Af Amer) 68.1 ml/min BUN/Creatinine Ratio 15.3 (10-20) Glucose 103 H (70-99(Fasting)) mg/dl Calcium 8.4 L (8.5-10.1) mg/dl Phosphorus 2.2 L (2.5-4.9) mg/dl Magnesium 1.9 (1.7-2.4) mg/dl Medications Administered Current Inpatient Medications Acetaminophen (Acetaminophen 325 Mg Tab) 650 mg PO Q4H PRN PRN Reason: Pain or Fever Stop: 11/10/22 23:11 Promethazine HCl 12.5 mg/ (Sodium Chloride) 50.5 mls @ 202 mls/hr IV Q6H PRN PRN Reason: Nausea And Vomiting Stop: 11/10/22 23:11 Metoprolol Tartrate (Metoprolol Tartrate 25 Mg Tab) 12.5 mg PO BID SHAREE Stop: 11/10/22 23:11 Last Admin: 10/15/22 07:54 Dose: 12.5 mg Potassium Chloride (Potassium Chloride Crtab 20 Meq Tabcr) 40 meq PO NOW STA Stop: 10/15/22 08:55 Raspberry (Raspberry Syrup 5 Ml Udp) 5 ml PO Q6 SHAREE Stop: 10/23/22 10:44 Last Admin: 10/15/22 05:16 Dose: 5 ml Tramadol HCl (Tramadol Hcl 50 Mg Tablet) 25 mg PO Q4H PRN PRN Reason: Pain Stop: 11/10/22 23:11 Last Admin: 10/12/22 17:47 Dose: 25 mg Vancomycin HCl (Vancomycin Hcl 500 Mg/10 Ml Soln) 500 mg PO Q6 [facility] Stop: 10/23/22 10:44 Last Admin: 10/15/22 05:17 Dose: 500 mg Warfarin Sodium (Warfarin Sod 5 Mg Tab) 5 mg PO DAILY@1600 [facility] Stop: 11/13/22 15:59 Last Admin: 10/14/22 15:35 Dose: 5 mg
[2022-10-15] MEDS ORDERED: POTASSIUM CHLORIDE CRTAB 20 MEQ TABCR PO STA (08:59)
[2022-10-15] MEDS: WARFARIN SOD 5 MG TAB PO SCH (17:21)
[2022-10-15] MEDS: MELATONIN 3 MG TAB PO PRN (20:02)
[2022-10-15] MEDS: ACETAMINOPHEN 325 MG TAB PO PRN (20:02)
[2022-10-16] MEDS: VANCOMYCIN HCL 500 MG/10 ML SOLN PO SCH ×4 (00:57→17:23)
[2022-10-16] MEDS: RASPBERRY SYRUP 5 ML UDP PO SCH ×4 (00:57→17:22)
[2022-10-16 08:23] LABS: Hematocrit (blood only) 31.4 % (42.0-52.0); Hemoglobin 11.1 g/dl (14.0-18.0); Mean Corpuscular Hemoglobin 31.5 pg (25.0-34.0); Mean Corpuscular Hgb Conc 35.4 g/dL (32.0-36.0); Mean Corpuscular Volume 89.2 fL (80.0-100.0); Mean Platelet Volume 10.7 fL (9.4-12.4); Platelet Count 208 K/uL (130-400); RDW Coefficient of Variation 13.4 % (11.5-14.5); RDW Standard Deviation 43.8 fL (36.4-46.3); Red Blood Count 3.52 M/uL (4.70-6.10); White Blood Count 10.46 K/ul (4.8-10.8)
--- NOTE | 2022-10-16 08:37 | Communication Note ---
Date of Service: October 16, 2022 Telemetry reviewed. Ongoing course afib on monitor- heart rates controlled in the 70s. No significant pauses. Continue reduced dose of metoprolol tartrate, 12.5 mg twice daily. No pacemaker indicated at this juncture. Patient has 2 indications for anticoagulation including a prior history of DVT/PE as well as new onset paroxysmal A. fib. Continue Coumadin, dosing per hospitalist team- INR order placed this am. HAMIDA Bales [facility] Cardiology Addendum October 16, 2022 16:38 Case discussed with HAMIDA Bales. Agree with plan as outlined.
[2022-10-16 08:38] LABS: INR 2.1 (0.9-1.1); Prothrombin Time 21.4 Seconds (9.0-12.0)
--- NOTE | 2022-10-16 08:42 | Communication Note ---
Date of Service: October 16, 2022 Telemetry reviewed. Ongoing course afib on monitor- heart rates controlled in the 70s. No significant pauses. Continue reduced dose of metoprolol tartrate, 12.5 mg twice daily. No pacemaker indicated at this juncture. Patient has 2 indications for anticoagulation including a prior history of DVT/PE as well as new onset paroxysmal A. fib. Continue Coumadin, dosing per hospitalist team- INR order placed this am. No further reccomendations from a cardiology standpoint- please reach out for any other questions/concerns. HAMIDA Bales [facility] Cardiology Addendum October 16, 2022 16:38 Cased discussed with HAMIDA Bales. Agree with plan as outlined. Please call if questions or concerns arise.
[2022-10-16 09:24] LABS: INR 2.1 (0.9-1.1); Prothrombin Time 21.8 Seconds (9.0-12.0)
--- NOTE | 2022-10-16 09:59 | Hospitalist Progress Note ---
Date of Service October 16, 2022 Assessment & Plan (1) C. difficile diarrhea: (2) Abdominal pain: Plan: Presents with right lower abdominal pain followed by small amount of diarrhea Testing positive for C diff CT abdomen showed large amount of stool within the rectum. Moderate amount of stool within the colon. No bowel obstruction. Right inguinal hernia which contains a loop of small bowel. WBC elevated at 23K and BP in the low side Continue Vanco 500mg q6h for now for possible fulminant C. diff, once improves consider to adjust the vanco dose Continue encouraging him to increase PO intake Continue monitor CBC and electrolytes , WBC now normalized Diarrhea improved Right inguinal hernia Complaint of intermittent right lower side abdominal pain CT abd/pelvis showed right inguinal hernia which contains a loop of small bowel. No resultant bowel obstruction. Imaging finding discussed with and patient at bedside Surgery consulted - not an ideal candidate for repair but if they are interested, this can be pursued via an outpatient evaluation. No need for surgical intervention currently. A fib with RVR New onset of Afib mostly due to acute illness ECHO showed no new wall motion abnormality with EF greater than 70% cardiology following Continue metoprolol 12.5 mg BID (decreased dose) already on coumadin for hx of PE Urinary retention with chronic Blanchard Abnormal UA Urine cx grew gamma strep not enterococcus with low count - No sensitivity to follow Continue to hold on antibiotic Chronic Elevated troponin: Denies chest pain and shortness of breath EKG showed no acute ischemic changes Continue monitor closely History of pulmonary embolism: Chronically anticoagulated on warfarin INR: 2.1 today Continue warfarin Continue monitor PT/INR Hypertension: BP in the Low side Metoprolol tartrate decreased to 12.5 mg BID due to low BP Continue monitor BP CKD (chronic kidney disease), stage III: Creatinine stable, Baseline 1.2-1.3 Chronic anemia: Hgb: ~11 stable DVT Prophylaxis Anticoagulated on warfarin. Code status DNR Admission and Anticipated Discharge Date Admission Date: October 12, 2022 Subjective Pt was seen in follow of C diff, Afib w/ RVR (on coumadin) Afib now rate controlled Pt on coumadin for Afib (new onset) and hx of DVT/PE Sitting up in bed in no acute distress, eating lunch He denies any chest pain, palpitation, fever or shortness of breath Reports diarrhea is improving but he is a poor historian, per RN it also seems improved. No BM during her shift. earlier reported loose stool. Review of Systems Review of Systems: All systems reviewed & are unremarkable except as noted in Subjective Physical Exam Physical Exam: General- elderly M in no acute distress Head- atraumatic Eyes- PERRL, EOMI ENT- oropharynx clear Neck- supple, no JVD Lungs- clear to auscultation Heart- irregular rhythm; +murmur Abdomen- normal bowel sounds, soft, nontender Extremities- no calf tenderness Neuro- awake and alert, PERRL, EOMI; no facial palsy; no dysarthria, moves extremities Skin- warm & dry Results & Data Results & Data ([facility]) Vital Signs (Past 12 Hours) Vital Signs Temp Pulse Resp BP BP Pulse Ox O2 Del Method 10/16/22 06:04 36.5 C 76 18 106/71 97 Room Air 10/16/22 03:49 36.5 C 81 18 98/62 L 97 Room Air 10/15/22 23:10 36.9 C 84 18 101/65 98 Room Air Laboratory Results 10/16/22 10/16/22 10/16/22 Range/Units 08:57 07:53 07:53 WBC 10.46 (4.8-10.8) K/ul RBC 3.52 L (4.70-6.10) M/uL Hgb 11.1 L (14.0-18.0) g/dl Hct 31.4 L (42.0-52.0) % MCV 89.2 (80.0-100.0) fL MCH 31.5 (25.0-34.0) pg MCHC 35.4 (32.0-36.0) g/dL RDW Std Deviation 43.8 (36.4-46.3) fL RDW Coeff of Sangeetha 13.4 (11.5-14.5) % Plt Count 208 (130-400) K/uL MPV 10.7 (9.4-12.4) fL PT 21.8 H (9.0-12.0) Seconds INR 2.1 H (0.9-1.1) Sodium 136 (136-145) mmol/L Potassium 3.8 (3.5-5.1) mmol/L Chloride 106 (98-107) mmol/L Carbon Dioxide 25 (21-32) mmol/L Anion Gap 5 (3-11) BUN 14 (6-23) mg/dl Creatinine 0.95 (0.6-1.4) mg/dl Est Cr Clr Drug Dosing 54.4 ml/min Est GFR ( Amer) 81.9 ml/min Est GFR (Non-Af Amer) 70.7 ml/min BUN/Creatinine Ratio 14.7 (10-20) Glucose 101 H (70-99(Fasting)) mg/dl Calcium 8.6 (8.5-10.1) mg/dl Phosphorus 2.5 (2.5-4.9) mg/dl Magnesium 2.0 (1.7-2.4) mg/dl 10/16/22 Range/Units 07:53 WBC (4.8-10.8) K/ul RBC (4.70-6.10) M/uL Hgb (14.0-18.0) g/dl Hct (42.0-52.0) % MCV (80.0-100.0) fL MCH (25.0-34.0) pg MCHC (32.0-36.0) g/dL RDW Std Deviation (36.4-46.3) fL RDW Coeff of Sangeetha (11.5-14.5) % Plt Count (130-400) K/uL MPV (9.4-12.4) fL PT 21.4 H (9.0-12.0) Seconds INR 2.1 H (0.9-1.1) Sodium (136-145) mmol/L Potassium (3.5-5.1) mmol/L Chloride (98-107) mmol/L Carbon Dioxide (21-32) mmol/L Anion Gap (3-11) BUN (6-23) mg/dl Creatinine (0.6-1.4) mg/dl Est Cr Clr Drug Dosing ml/min Est GFR ( Amer) ml/min Est GFR (Non-Af Amer) ml/min BUN/Creatinine Ratio (10-20) Glucose (70-99(Fasting)) mg/dl Calcium (8.5-10.1) mg/dl Phosphorus (2.5-4.9) mg/dl Magnesium (1.7-2.4) mg/dl Medications Administered Current Inpatient Medications Acetaminophen (Acetaminophen 325 Mg Tab) 650 mg PO Q4H PRN PRN Reason: Pain or Fever Stop: 11/10/22 23:11 Last Admin: 10/15/22 20:02 Dose: 650 mg Promethazine HCl 12.5 mg/ (Sodium Chloride) 50.5 mls @ 202 mls/hr IV Q6H PRN PRN Reason: Nausea And Vomiting Stop: 11/10/22 23:11 Melatonin (Melatonin 3 Mg Tab) 3 mg PO HS PRN PRN Reason: Sleep Stop: 11/14/22 19:16 Last Admin: 10/15/22 20:02 Dose: 3 mg Metoprolol Tartrate (Metoprolol Tartrate 25 Mg Tab) 12.5 mg PO BID [facility] Stop: 11/10/22 23:11 Last Admin: 10/15/22 20:03 Dose: Not Given Raspberry (Raspberry Syrup 5 Ml Udp) 5 ml PO Q6 [facility] Stop: 10/23/22 10:44 Last Admin: 10/16/22 05:59 Dose: 5 ml Tramadol HCl (Tramadol Hcl 50 Mg Tablet) 25 mg PO Q4H PRN PRN Reason: Pain Stop: 11/10/22 23:11 Last Admin: 10/12/22 17:47 Dose: 25 mg Vancomycin HCl (Vancomycin Hcl 500 Mg/10 Ml Soln) 500 mg PO Q6 [facility] Stop: 10/23/22 10:44 Last Admin: 10/16/22 05:59 Dose: 500 mg Warfarin Sodium (Warfarin Sod 5 Mg Tab) 5 mg PO DAILY@1600 [facility] Stop: 11/13/22 15:59 Last Admin: 10/15/22 17:21 Dose: 5 mg
[2022-10-16] MEDS: METOPROLOL TARTRATE 25 MG TAB PO SCH ×2 (11:01→21:23)
[2022-10-16 11:29] LABS: BUN Creatinine Ratio 14.7 (10-20); Calcium 8.6 mg/dl (8.5-10.1); Creatinine Clr Calc Pharmacy 54.4 ml/min; Est GFR (African American) 81.9 ml/min; Est GFR (Non-African American) 70.7 ml/min; Phosphorus 2.5 mg/dl (2.5-4.9); Potassium 3.8 mmol/L (3.5-5.1)
[2022-10-16] MEDS: WARFARIN SOD 5 MG TAB PO SCH (17:23)
[2022-10-16] MEDS: MELATONIN 3 MG TAB PO PRN (21:24)
[2022-10-16] MEDS: ACETAMINOPHEN 325 MG TAB PO PRN (21:24)
[2022-10-17] MEDS: RASPBERRY SYRUP 5 ML UDP PO SCH ×5 (00:30→23:41)
[2022-10-17] MEDS: VANCOMYCIN HCL 500 MG/10 ML SOLN PO SCH ×5 (00:30→23:41)
[2022-10-17 08:26] LABS: INR 2.9 (0.9-1.1); Prothrombin Time 28.7 Seconds (9.0-12.0)
[2022-10-17 08:30] LABS: Hematocrit (blood only) 30.6 % (42.0-52.0); Hemoglobin 10.7 g/dl (14.0-18.0); Mean Corpuscular Hemoglobin 31.8 pg (25.0-34.0); Mean Corpuscular Volume 90.8 fL (80.0-100.0); Mean Platelet Volume 10.3 fL (9.4-12.4); Platelet Count 235 K/uL (130-400); RDW Coefficient of Variation 13.4 % (11.5-14.5); RDW Standard Deviation 44.6 fL (36.4-46.3); Red Blood Count 3.37 M/uL (4.70-6.10); White Blood Count 8.72 K/ul (4.8-10.8)
--- NOTE | 2022-10-17 08:35 | Hospitalist Progress Note ---
Date of Service October 17, 2022 Assessment & Plan (1) C. difficile diarrhea: (2) Abdominal pain: Plan: Presents with right lower abdominal pain followed by small amount of diarrhea Testing positive for C diff CT abdomen showed large amount of stool within the rectum. Moderate amount of stool within the colon. No bowel obstruction. Right inguinal hernia which contains a loop of small bowel. WBC elevated at 23K and BP in the low side Continue Vanco 500mg q6h for now for possible fulminant C. diff, once improves consider to adjust the vanco dose Continue encouraging him to increase PO intake Continue monitor CBC and electrolytes , WBC now normalized Diarrhea improved Right inguinal hernia Complaint of intermittent right lower side abdominal pain CT abd/pelvis showed right inguinal hernia which contains a loop of small bowel. No resultant bowel obstruction. Imaging finding discussed with and patient at bedside Surgery consulted - not an ideal candidate for repair but if they are interested, this can be pursued via an outpatient evaluation. No need for surgical intervention currently. 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 Code status DNR Admission and Anticipated Discharge Date Admission Date: October 12, 2022 Subjective Pt was seen in follow of C diff, Afib w/ RVR (on coumadin) Afib now rate controlled Pt on coumadin for Afib (new onset) and hx of DVT/PE Sitting up in bed in no acute distress He denies any chest pain, palpitation, fever or shortness of breath Denies any abdominal pain, nausea or vomiting Reports diarrhea is improving but he is a poor historian, per RN it also seems improved. Had loose BM overnight, incontinent. Has chronic nieves - see urology for exchanges Review of Systems Review of Systems: All systems reviewed & are unremarkable except as noted in Subjective Physical Exam Physical Exam: General- elderly M in no acute distress Head- atraumatic Eyes- PERRL, EOMI ENT- oropharynx clear Neck- supple, no JVD Lungs- clear to auscultation Heart- irregular rhythm; +murmur Abdomen- normal bowel sounds, soft, nontender Extremities- no calf tenderness Neuro- awake and alert, PERRL, EOMI; no facial palsy; no dysarthria, moves extremities Skin- warm & dry Results & Data Results & Data ([facility]) Vital Signs (Past 12 Hours) Vital Signs Temp Pulse Pulse Resp BP Pulse Ox O2 Del Method 10/17/22 07:50 36.8 C 76 18 104/68 95 Room Air 10/17/22 07:21 77 10/17/22 04:00 36.8 C 79 20 102/61 94 Room Air 10/16/22 22:02 82 10/16/22 23:00 37.3 C 81 19 107/66 97 Room Air Laboratory Results 10/17/22 10/17/22 10/17/22 Range/Units 07:42 07:42 07:42 WBC 8.72 (4.8-10.8) K/ul RBC 3.37 L (4.70-6.10) M/uL Hgb 10.7 L (14.0-18.0) g/dl Hct 30.6 L (42.0-52.0) % MCV 90.8 (80.0-100.0) fL MCH 31.8 (25.0-34.0) pg MCHC 35.0 (32.0-36.0) g/dL RDW Std Deviation 44.6 (36.4-46.3) fL RDW Coeff of Sangeetha 13.4 (11.5-14.5) % Plt Count 235 (130-400) K/uL MPV 10.3 (9.4-12.4) fL PT 28.7 H (9.0-12.0) Seconds INR 2.9 H (0.9-1.1) Sodium 134 L (136-145) mmol/L Potassium 3.9 (3.5-5.1) mmol/L Chloride 105 (98-107) mmol/L Carbon Dioxide 25 (21-32) mmol/L Anion Gap 4 (3-11) BUN 15 (6-23) mg/dl Creatinine 1.05 (0.6-1.4) mg/dl Est Cr Clr Drug Dosing 49.2 ml/min Est GFR ( Amer) 72.6 ml/min Est GFR (Non-Af Amer) 62.6 ml/min BUN/Creatinine Ratio 14.3 (10-20) Glucose 103 H (70-99(Fasting)) mg/dl Calcium 8.9 (8.5-10.1) mg/dl Phosphorus 3.0 (2.5-4.9) mg/dl Magnesium 2.1 (1.7-2.4) mg/dl 10/16/22 Range/Units 07:53 WBC (4.8-10.8) K/ul RBC (4.70-6.10) M/uL Hgb (14.0-18.0) g/dl Hct (42.0-52.0) % MCV (80.0-100.0) fL MCH (25.0-34.0) pg MCHC (32.0-36.0) g/dL RDW Std Deviation (36.4-46.3) fL RDW Coeff of Sangeetha (11.5-14.5) % Plt Count (130-400) K/uL MPV (9.4-12.4) fL PT (9.0-12.0) Seconds INR (0.9-1.1) Sodium 136 (136-145) mmol/L Potassium 3.8 (3.5-5.1) mmol/L Chloride 106 (98-107) mmol/L Carbon Dioxide 25 (21-32) mmol/L Anion Gap 5 (3-11) BUN 14 (6-23) mg/dl Creatinine 0.95 (0.6-1.4) mg/dl Est Cr Clr Drug Dosing 54.4 ml/min Est GFR ( Amer) 81.9 ml/min Est GFR (Non-Af Amer) 70.7 ml/min BUN/Creatinine Ratio 14.7 (10-20) Glucose 101 H (70-99(Fasting)) mg/dl Calcium 8.6 (8.5-10.1) mg/dl Phosphorus 2.5 (2.5-4.9) mg/dl Magnesium 2.0 (1.7-2.4) mg/dl Medications Administered Current Inpatient Medications Acetaminophen (Acetaminophen 325 Mg Tab) 650 mg PO Q4H PRN PRN Reason: Pain or Fever Stop: 11/10/22 23:11 Last Admin: 10/16/22 21:24 Dose: 650 mg Promethazine HCl 12.5 mg/ (Sodium Chloride) 50.5 mls @ 202 mls/hr IV Q6H PRN PRN Reason: Nausea And Vomiting Stop: 11/10/22 23:11 Melatonin (Melatonin 3 Mg Tab) 3 mg PO HS PRN PRN Reason: Sleep Stop: 11/14/22 19:16 Last Admin: 10/16/22 21:24 Dose: 3 mg Metoprolol Tartrate (Metoprolol Tartrate 25 Mg Tab) 12.5 mg PO BID [facility] Stop: 11/10/22 23:11 Last Admin: 10/16/22 21:23 Dose: 12.5 mg Raspberry (Raspberry Syrup 5 Ml Udp) 5 ml PO Q6 [facility] Stop: 10/23/22 10:44 Last Admin: 10/17/22 05:15 Dose: 5 ml Tramadol HCl (Tramadol Hcl 50 Mg Tablet) 25 mg PO Q4H PRN PRN Reason: Pain Stop: 11/10/22 23:11 Last Admin: 10/12/22 17:47 Dose: 25 mg Vancomycin HCl (Vancomycin Hcl 500 Mg/10 Ml Soln) 500 mg PO Q6 [facility] Stop: 10/23/22 10:44 Last Admin: 10/17/22 05:15 Dose: 500 mg Warfarin Sodium (Warfarin Sod 5 Mg Tab) 5 mg PO DAILY@1600 [facility] Stop: 11/13/22 15:59 Last Admin: 10/16/22 17:23 Dose: 5 mg
[2022-10-17] MEDS: METOPROLOL TARTRATE 25 MG TAB PO SCH ×2 (08:55→22:00)
[2022-10-17 09:22] LABS: BUN Creatinine Ratio 14.3 (10-20); Calcium 8.9 mg/dl (8.5-10.1); Creatinine Clr Calc Pharmacy 49.2 ml/min; Est GFR (African American) 72.6 ml/min; Est GFR (Non-African American) 62.6 ml/min; Magnesium 2.1 mg/dl (1.7-2.4); Potassium 3.9 mmol/L (3.5-5.1)
[2022-10-17] MEDS: WARFARIN SOD 5 MG TAB PO SCH (17:33)
[2022-10-17] MEDS: ACETAMINOPHEN 325 MG TAB PO PRN (23:41)
[2022-10-18] MEDS ORDERED: SODIUM CHLORIDE 0.9% 500 ML IV SCH (05:00)
[2022-10-18] MEDS: VANCOMYCIN HCL 500 MG/10 ML SOLN PO SCH ×3 (05:30→18:00)
[2022-10-18] MEDS: RASPBERRY SYRUP 5 ML UDP PO SCH ×3 (05:31→18:00)
[2022-10-18 06:27] LABS: Hematocrit (blood only) 30.1 % (42.0-52.0); Hemoglobin 10.3 g/dl (14.0-18.0); Mean Corpuscular Hemoglobin 31.4 pg (25.0-34.0); Mean Corpuscular Hgb Conc 34.2 g/dL (32.0-36.0); Mean Corpuscular Volume 91.8 fL (80.0-100.0); Mean Platelet Volume 9.8 fL (9.4-12.4); Platelet Count 245 K/uL (130-400); RDW Coefficient of Variation 13.3 % (11.5-14.5); RDW Standard Deviation 45.6 fL (36.4-46.3); Red Blood Count 3.28 M/uL (4.70-6.10); White Blood Count 6.32 K/ul (4.8-10.8)
[2022-10-18 06:44] LABS: INR 3.6 (0.9-1.1); Prothrombin Time 35.8 Seconds (9.0-12.0)
[2022-10-18 06:51] LABS: BUN Creatinine Ratio 13.4 (10-20); Creatinine Clr Calc Pharmacy 46.2 ml/min; Est GFR (African American) 67.1 ml/min; Est GFR (Non-African American) 57.9 ml/min; Magnesium 2.1 mg/dl (1.7-2.4); Potassium 3.8 mmol/L (3.5-5.1)
--- NOTE | 2022-10-18 08:35 | Hospitalist Progress Note ---
Date of Service October 18, 2022 Assessment & Plan (1) C. difficile diarrhea: (2) Abdominal pain: Plan: Presents with right lower abdominal pain followed by small amount of diarrhea Testing positive for C diff CT abdomen showed large amount of stool within the rectum. Moderate amount of stool within the colon. No bowel obstruction. Right inguinal hernia which contains a loop of small bowel. WBC elevated at 23K and BP in the low side Continue Vanco 500mg q6h for now for possible fulminant C. diff, once improves consider to adjust the vanco dose Continue encouraging him to increase PO intake Continue monitor CBC and electrolytes , WBC now normalized Diarrhea improved , + mucus in stool noted Right inguinal hernia Complaint of intermittent right lower side abdominal pain CT abd/pelvis showed right inguinal hernia which contains a loop of small bowel. No resultant bowel obstruction. Imaging finding discussed with and patient at bedside Surgery consulted - not an ideal candidate for repair but if they are interested, this can be pursued via an outpatient evaluation. No need for surgical intervention currently. A fib with RVR New onset of Afib mostly due to acute illness ECHO showed no new wall motion abnormality with EF greater than 70% cardiology following Continue metoprolol 12.5 mg BID (decreased dose) already on coumadin for hx of PE Urinary retention with chronic Nieves Abnormal UA Urine cx grew gamma strep not enterococcus with low count - No sensitivity to f ollow Continue to hold on antibiotic Chronic Elevated troponin: Denies chest pain and shortness of breath EKG showed no acute ischemic changes Continue monitor closely History of pulmonary embolism: Chronically anticoagulated on warfarin INR: 2.9 today Continue warfarin Continue monitor PT/INR Hypertension: BP in the Low side Metoprolol tartrate decreased to 12.5 mg BID due to low BP Continue monitor BP CKD (chronic kidney disease), stage III: Creatinine stable, Baseline 1.2-1.3 Chronic anemia: Hgb: ~11 stable DVT Prophylaxis Anticoagulated on warfarin. Code status DNR Admission and Anticipated Discharge Date Admission Date: October 12, 2022 Subjective Pt was seen in follow of C diff, Afib w/ RVR (on coumadin) Afib now rate controlled Pt on coumadin for Afib (new onset) and hx of DVT/PE Sitting up in bed in no acute distress He denies any chest pain, palpitation, fever or shortness of breath Denies any abdominal pain, nausea or vomiting Reports diarrhea is improving but he is a poor historian, per RN frequency seems improved. mucus in stool noted Has chronic nieves - sees urology for exchanges Review of Systems Review of Systems: All systems reviewed & are unremarkable except as noted in Subjective Physical Exam Physical Exam: General- elderly M in no acute distress Head- atraumatic Eyes- PERRL, EOMI ENT- oropharynx clear Neck- supple, no JVD Lungs- clear to auscultation Heart- irregular rhythm; +murmur Abdomen- normal bowel sounds, soft, nontender Extremities- no calf tenderness Neuro- awake and alert, PERRL, EOMI; no facial palsy; no dysarthria, moves extremities Skin- warm & dry Results & Data Results & Data ([facility]) Vital Signs (Past 12 Hours) Vital Signs Temp Pulse Pulse Resp BP BP Pulse Ox 10/18/22 06:00 36.9 C 74 20 100/64 96 10/18/22 04:44 69 97/54 L 10/18/22 04:43 36.7 C 64 18 91/51 L 97 10/17/22 23:35 138 H 10/18/22 02:01 88 10/17/22 23:08 37.2 C 81 18 113/66 94 O2 Del Method 10/18/22 06:00 Room Air 10/18/22 04:44 10/18/22 04:43 Room Air 10/17/22 23:35 10/18/22 02:01 10/17/22 23:08 Room Air Laboratory Results 10/18/22 10/18/22 10/18/22 Range/Units 05:48 05:48 05:48 WBC 6.32 (4.8-10.8) K/ul RBC 3.28 L (4.70-6.10) M/uL Hgb 10.3 L (14.0-18.0) g/dl Hct 30.1 L (42.0-52.0) % MCV 91.8 (80.0-100.0) fL MCH 31.4 (25.0-34.0) pg MCHC 34.2 (32.0-36.0) g/dL RDW Std Deviation 45.6 (36.4-46.3) fL RDW Coeff of Sangeetha 13.3 (11.5-14.5) % Plt Count 245 (130-400) K/uL MPV 9.8 (9.4-12.4) fL PT 35.8 H (9.0-12.0) Seconds INR 3.6 H (0.9-1.1) Sodium 137 (136-145) mmol/L Potassium 3.8 (3.5-5.1) mmol/L Chloride 107 (98-107) mmol/L Carbon Dioxide 25 (21-32) mmol/L Anion Gap 5 (3-11) BUN 15 (6-23) mg/dl Creatinine 1.12 (0.6-1.4) mg/dl Est Cr Clr Drug Dosing 46.2 ml/min Est GFR ( Amer) 67.1 ml/min Est GFR (Non-Af Amer) 57.9 ml/min BUN/Creatinine Ratio 13.4 (10-20) Glucose 99 (70-99(Fasting)) mg/dl Calcium 9.0 (8.5-10.1) mg/dl Phosphorus (2.5-4.9) mg/dl Magnesium 2.1 (1.7-2.4) mg/dl 10/17/22 Range/Units 07:42 WBC (4.8-10.8) K/ul RBC (4.70-6.10) M/uL Hgb (14.0-18.0) g/dl Hct (42.0-52.0) % MCV (80.0-100.0) fL MCH (25.0-34.0) pg MCHC (32.0-36.0) g/dL RDW Std Deviation (36.4-46.3) fL RDW Coeff of Sangeetha (11.5-14.5) % Plt Count (130-400) K/uL MPV (9.4-12.4) fL PT (9.0-12.0) Seconds INR (0.9-1.1) Sodium 134 L (136-145) mmol/L Potassium 3.9 (3.5-5.1) mmol/L Chloride 105 (98-107) mmol/L Carbon Dioxide 25 (21-32) mmol/L Anion Gap 4 (3-11) BUN 15 (6-23) mg/dl Creatinine 1.05 (0.6-1.4) mg/dl Est Cr Clr Drug Dosing 49.2 ml/min Est GFR ( Amer) 72.6 ml/min Est GFR (Non-Af Amer) 62.6 ml/min BUN/Creatinine Ratio 14.3 (10-20) Glucose 103 H (70-99(Fasting)) mg/dl Calcium 8.9 (8.5-10.1) mg/dl Phosphorus 3.0 (2.5-4.9) mg/dl Magnesium 2.1 (1.7-2.4) mg/dl Medications Administered Current Inpatient Medications Acetaminophen (Acetaminophen 325 Mg Tab) 650 mg PO Q4H PRN PRN Reason: Pain or Fever Stop: 11/10/22 23:11 Last Admin: 10/17/22 23:41 Dose: 650 mg Promethazine HCl 12.5 mg/ (Sodium Chloride) 50.5 mls @ 202 mls/hr IV Q6H PRN PRN Reason: Nausea And Vomiting Stop: 11/10/22 23:11 Melatonin (Melatonin 3 Mg Tab) 3 mg PO HS PRN PRN Reason: Sleep Stop: 11/14/22 19:16 Last Admin: 10/16/22 21:24 Dose: 3 mg Metoprolol Tartrate (Metoprolol Tartrate 25 Mg Tab) 12.5 mg PO BID [facility] Stop: 11/10/22 23:11 Last Admin: 10/17/22 22:00 Dose: 12.5 mg Raspberry (Raspberry Syrup 5 Ml Udp) 5 ml PO Q6 [facility] Stop: 10/23/22 10:44 Last Admin: 10/18/22 05:31 Dose: 5 ml Tramadol HCl (Tramadol Hcl 50 Mg Tablet) 25 mg PO Q4H PRN PRN Reason: Pain Stop: 11/10/22 23:11 Last Admin: 10/12/22 17:47 Dose: 25 mg Vancomycin HCl (Vancomycin Hcl 500 Mg/10 Ml Soln) 500 mg PO Q6 [facility] Stop: 10/23/22 10:44 Last Admin: 10/18/22 05:30 Dose: 500 mg Warfarin Sodium (Warfarin Sod 5 Mg Tab) 5 mg PO DAILY@1600 [facility] Stop: 11/13/22 15:59 Last Admin: 10/17/22 17:33 Dose: 5 mg
[2022-10-18] MEDS: METOPROLOL TARTRATE 25 MG TAB PO SCH ×2 (10:04→21:51)
[2022-10-19] MEDS: RASPBERRY SYRUP 5 ML UDP PO SCH ×5 (00:12→23:33)
[2022-10-19] MEDS: VANCOMYCIN HCL 500 MG/10 ML SOLN PO SCH ×5 (00:12→23:34)
--- NOTE | 2022-10-19 07:48 | Hospitalist Progress Note ---
Date of Service October 19, 2022 Assessment & Plan (1) C. difficile diarrhea: (2) Abdominal pain: Plan: Presents with right lower abdominal pain followed by small amount of diarrhea Testing positive for C diff CT abdomen showed large amount of stool within the rectum. Moderate amount of stool within the colon. No bowel obstruction. Right inguinal hernia which contains a loop of small bowel. WBC elevated at 23K and BP in the low side Continue Vanco 500mg q6h for now for possible fulminant C. diff, once improves consider to adjust the vanco dose Continue encouraging him to increase PO intake Continue monitor CBC and electrolytes , WBC now normalized Diarrhea improved , stool starting to be more formed Right inguinal hernia Complaint of intermittent right lower side abdominal pain CT abd/pelvis showed right inguinal hernia which contains a loop of small bowel. No resultant bowel obstruction. Imaging finding discussed with and patient at bedside Surgery consulted - not an ideal candidate for repair but if they are interested, this can be pursued via an outpatient evaluation. No need for surgical intervention currently. 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 Code status DNR Admission and Anticipated Discharge Date Admission Date: October 12, 2022 Subjective Pt was seen in follow of C diff, Afib w/ RVR (on coumadin) Afib now rate controlled Pt on coumadin for Afib (new onset) and hx of DVT/PE Sitting up in chair in no acute distress He denies any chest pain, palpitation, fever or shortness of breath Denies any abdominal pain, nausea or vomiting Diarrhea is improving, per nursing staff stool is starting to be more formed Has chronic nieves - sees urology for exchanges Pt's at the bedside and updated Review of Systems Review of Systems: All systems reviewed & are unremarkable except as noted in Subjective Physical Exam Physical Exam: General- elderly M in no acute distress Head- atraumatic Eyes- PERRL, EOMI ENT- oropharynx clear Neck- supple, no JVD Lungs- clear to auscultation Heart- irregular rhythm; +murmur Abdomen- normal bowel sounds, soft, nontender Extremities- no calf tenderness Neuro- awake and alert, PERRL, EOMI; no facial palsy; no dysarthria, moves extremities Skin- warm & dry Results & Data Results & Data ([facility]) Vital Signs (Past 12 Hours) Vital Signs Temp Pulse Pulse Resp BP Pulse Ox O2 Del Method 10/19/22 07:27 36.4 C L 86 16 115/69 98 Room Air 10/18/22 22:25 86 10/19/22 03:00 36.6 C 85 18 111/66 96 Room Air 10/18/22 23:01 36.6 C 87 18 125/71 97 Room Air 10/18/22 21:50 84 18 111/69 97 Room Air Medications Administered Current Inpatient Medications Acetaminophen (Acetaminophen 325 Mg Tab) 650 mg PO Q4H PRN PRN Reason: Pain or Fever Stop: 11/10/22 23:11 Last Admin: 10/17/22 23:41 Dose: 650 mg Promethazine HCl 12.5 mg/ (Sodium Chloride) 50.5 mls @ 202 mls/hr IV Q6H PRN PRN Reason: Nausea And Vomiting Stop: 11/10/22 23:11 Melatonin (Melatonin 3 Mg Tab) 3 mg PO HS PRN PRN Reason: Sleep Stop: 11/14/22 19:16 Last Admin: 10/16/22 21:24 Dose: 3 mg Metoprolol Tartrate (Metoprolol Tartrate 25 Mg Tab) 12.5 mg PO BID [facility] Stop: 11/10/22 23:11 Last Admin: 10/18/22 21:51 Dose: 12.5 mg Raspberry (Raspberry Syrup 5 Ml Udp) 5 ml PO Q6 [facility] Stop: 10/23/22 10:44 Last Admin: 10/19/22 05:32 Dose: 5 ml Tramadol HCl (Tramadol Hcl 50 Mg Tablet) 25 mg PO Q4H PRN PRN Reason: Pain Stop: 11/10/22 23:11 Last Admin: 10/12/22 17:47 Dose: 25 mg Vancomycin HCl (Vancomycin Hcl 500 Mg/10 Ml Soln) 500 mg PO Q6 [facility] Stop: 10/23/22 10:44 Last Admin: 10/19/22 05:32 Dose: 500 mg Warfarin Sodium (Warfarin Sod 5 Mg Tab) 5 mg PO DAILY@1600 [facility] Stop: 11/13/22 15:59 Last Admin: 10/17/22 17:33 Dose: 5 mg
[2022-10-19] MEDS: METOPROLOL TARTRATE 25 MG TAB PO SCH ×2 (10:09→20:38)
[2022-10-20] MEDS: VANCOMYCIN HCL 500 MG/10 ML SOLN PO SCH ×4 (05:25→23:29)
[2022-10-20] MEDS: RASPBERRY SYRUP 5 ML UDP PO SCH ×4 (05:25→23:29)
[2022-10-20 07:06] LABS: Hematocrit (blood only) 32.4 % (42.0-52.0); Hemoglobin 11.2 g/dl (14.0-18.0); Mean Corpuscular Hemoglobin 31.5 pg (25.0-34.0); Mean Corpuscular Hgb Conc 34.6 g/dL (32.0-36.0); Mean Corpuscular Volume 91.3 fL (80.0-100.0); Mean Platelet Volume 9.7 fL (9.4-12.4); Platelet Count 348 K/uL (130-400); RDW Coefficient of Variation 13.4 % (11.5-14.5); RDW Standard Deviation 45.1 fL (36.4-46.3); Red Blood Count 3.55 M/uL (4.70-6.10); White Blood Count 7.34 K/ul (4.8-10.8)
[2022-10-20 07:10] LABS: INR 3.1 (0.9-1.1); Prothrombin Time 30.8 Seconds (9.0-12.0)
[2022-10-20 07:24] LABS: BUN Creatinine Ratio 9.4 (10-20); Calcium 9.4 mg/dl (8.5-10.1); Creatinine Clr Calc Pharmacy 40.7 ml/min; Est GFR (African American) 57.7 ml/min; Est GFR (Non-African American) 49.8 ml/min
[2022-10-20] MEDS: METOPROLOL TARTRATE 25 MG TAB PO SCH ×2 (08:10→19:47)
--- NOTE | 2022-10-20 09:26 | Hospitalist Progress Note ---
Date of Service October 20, 2022 Assessment & Plan (1) C. difficile diarrhea: (2) Abdominal pain: Plan: Presents with right lower abdominal pain followed by small amount of diarrhea Testing positive for C diff CT abdomen showed large amount of stool within the rectum. Moderate amount of stool within the colon. No bowel obstruction. Right inguinal hernia which contains a loop of small bowel. WBC elevated at 23K and BP in the low side Continue Vanco 500mg q6h for now for possible fulminant C. diff, once improves consider to adjust the vanco dose Continue encouraging him to increase PO intake Continue monitor CBC and electrolytes , WBC now normalized Diarrhea improved , stool starting to be more formed Right inguinal hernia Complaint of intermittent right lower side abdominal pain CT abd/pelvis showed right inguinal hernia which contains a loop of small bowel. No resultant bowel obstruction. Imaging finding discussed with and patient at bedside Surgery consulted - not an ideal candidate for repair but if they are interested, this can be pursued via an outpatient evaluation. No need for surgical intervention currently. A fib with RVR New onset of Afib mostly due to acute illness ECHO showed no new wall motion abnormality with EF greater than 70% cardiology following Continue metoprolol 12.5 mg BID (decreased dose) already on coumadin for hx of PE - holding coumadin as INR supratherapeutic Urinary retention with chronic Nieves Abnormal UA Urine cx grew gamma strep not enterococcus with low count - No sensitivity to follow Continue to hold on antibiotic Chronic Elevated troponin: Denies chest pain and shortness of breath EKG showed no acute ischemic changes Continue monitor closely History of pulmonary embolism: 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 Code status DNR Admission and Anticipated Discharge Date Admission Date: October 12, 2022 Subjective Pt was seen in follow of C diff, Afib w/ RVR (on coumadin) Afib now rate controlled Pt on coumadin for Afib (new onset) and hx of DVT/PE Sitting up in chair in no acute distress He denies any chest pain, palpitation, fever or shortness of breath Denies any abdominal pain, nausea or vomiting Diarrhea is improving, per nursing staff stool is starting to be more formed Has chronic nieves - sees urology for exchanges Pt's at the bedside today again and updated Review of Systems Review of Systems: All systems reviewed & are unremarkable except as noted in Subjective Physical Exam Physical Exam: General- elderly M in no acute distress Head- atraumatic Eyes- PERRL, EOMI ENT- oropharynx clear Neck- supple, no JVD Lungs- clear to auscultation Heart- irregular rhythm; +murmur Abdomen- normal bowel sounds, soft, nontender Extremities- no calf tenderness Neuro- awake and alert, PERRL, EOMI; no facial palsy; no dysarthria, moves extremities Skin- warm & dry Results & Data Results & Data ([facility]) Vital Signs (Past 12 Hours) Vital Signs Temp Pulse Pulse Pulse Resp BP Pulse Ox 10/20/22 08:19 36.7 C 79 20 101/61 97 10/20/22 03:36 36.8 C 82 18 114/69 92 10/19/22 21:59 87 10/19/22 23:37 36.1 C L 80 18 94/59 L 96 10/19/22 22:33 O2 Del Method 10/20/22 08:19 Room Air 10/20/22 03:36 Room Air 10/19/22 21:59 10/19/22 23:37 Room Air 10/19/22 22:33 Room Air Laboratory Results 10/20/22 10/20/22 10/20/22 Range/Units 06:28 06:28 06:28 WBC 7.34 (4.8-10.8) K/ul RBC 3.55 L (4.70-6.10) M/uL Hgb 11.2 L (14.0-18.0) g/dl Hct 32.4 L (42.0-52.0) % MCV 91.3 (80.0-100.0) fL MCH 31.5 (25.0-34.0) pg MCHC 34.6 (32.0-36.0) g/dL RDW Std Deviation 45.1 (36.4-46.3) fL RDW Coeff of Sangeetha 13.4 (11.5-14.5) % Plt Count 348 (130-400) K/uL MPV 9.7 (9.4-12.4) fL PT 30.8 H (9.0-12.0) Seconds INR 3.1 H (0.9-1.1) Sodium 136 (136-145) mmol/L Potassium 4.0 (3.5-5.1) mmol/L Chloride 104 (98-107) mmol/L Carbon Dioxide 29 (21-32) mmol/L Anion Gap 3 (3-11) BUN 12 (6-23) mg/dl Creatinine 1.27 (0.6-1.4) mg/dl Est Cr Clr Drug Dosing 40.7 ml/min Est GFR ( Amer) 57.7 ml/min Est GFR (Non-Af Amer) 49.8 ml/min BUN/Creatinine Ratio 9.4 L (10-20) Glucose 106 H (70-99(Fasting)) mg/dl Calcium 9.4 (8.5-10.1) mg/dl Medications Administered Current Inpatient Medications Acetaminophen (Acetaminophen 325 Mg Tab) 650 mg PO Q4H PRN PRN Reason: Pain or Fever Stop: 11/10/22 23:11 Last Admin: 10/17/22 23:41 Dose: 650 mg Promethazine HCl 12.5 mg/ (Sodium Chloride) 50.5 mls @ 202 mls/hr IV Q6H PRN PRN Reason: Nausea And Vomiting Stop: 11/10/22 23:11 Melatonin (Melatonin 3 Mg Tab) 3 mg PO HS PRN PRN Reason: Sleep Stop: 11/14/22 19:16 Last Admin: 10/16/22 21:24 Dose: 3 mg Metoprolol Tartrate (Metoprolol Tartrate 25 Mg Tab) 12.5 mg PO BID [facility] Stop: 11/10/22 23:11 Last Admin: 10/20/22 08:10 Dose: 12.5 mg Raspberry (Raspberry Syrup 5 Ml Udp) 5 ml PO Q6 [facility] Stop: 10/23/22 10:44 Last Admin: 10/20/22 05:25 Dose: 5 ml Tramadol HCl (Tramadol Hcl 50 Mg Tablet) 25 mg PO Q4H PRN PRN Reason: Pain Stop: 11/10/22 23:11 Last Admin: 10/12/22 17:47 Dose: 25 mg Vancomycin HCl (Vancomycin Hcl 500 Mg/10 Ml Soln) 500 mg PO Q6 [facility] Stop: 10/23/22 10:44 Last Admin: 10/20/22 05:25 Dose: 500 mg Warfarin Sodium (Warfarin Sod 5 Mg Tab) 5 mg PO DAILY@1600 COUNTS INCLUDE 234 BEDS AT [facility] Stop: 11/13/22 15:59 Last Admin: 10/17/22 17:33 Dose: 5 mg
[2022-10-20] MEDS: MELATONIN 3 MG TAB PO PRN (19:47)
[2022-10-21] MEDS: VANCOMYCIN HCL 500 MG/10 ML SOLN PO SCH ×2 (05:14→12:56)
[2022-10-21] MEDS: RASPBERRY SYRUP 5 ML UDP PO SCH ×2 (05:14→12:57)
[2022-10-21] MEDS: ACETAMINOPHEN 325 MG TAB PO PRN (05:14)
[2022-10-21] MEDS: METOPROLOL TARTRATE 25 MG TAB PO SCH (09:30)
--- NOTE | 2022-10-21 14:13 | Discharge Summary ---
Date of Service October 21, 2022 Admission HPI Per Admitting Provider History obtained from patient, family, and records. Patient is a fair historian. 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 Last confinement October 05 to 2022 for encephalopathy secondary to UTI. No significant growth on urine CS. Patient discharged on cefdinir course. This morning, patient noted achy right-sided abdominal pain followed by watery diarrhea symptoms. Patient denies headache, chest pain, shortness of breath, fever, chills. Patient mentation at baseline as per . Patient brought to the ER for evaluation. 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 difficile infection/colitis A-fib with RVR Discharge Exam General- elderly M in no acute distress Head- atraumatic Eyes- PERRL, EOMI ENT- oropharynx clear Neck- supple, no JVD Lungs- clear to auscultation Heart- irregular rhythm; +murmur Abdomen- normal bowel sounds, soft, nontender Extremities- no calf tenderness Neuro- awake and alert, PERRL, EOMI; no facial palsy; no dysarthria, moves extremities Skin- warm & dry Discharge Data Allergies Allergy/AdvReac Type Severity Reaction Status Date / Time Penicillins Allergy Unknown HAPPENED A Verified 10/11/22 19:24 LONG TIME AGO Consultations 10/11/22 19:08 ED Decision to Admit Stat 10/12/22 16:04 Consult General Surgery Routine 10/13/22 07:29 Consult Cardiology Routine Ordered Studies 10/11/22 16:32 CT abd pelvis wo con Stat FINDINGS: There is mild airspace opacity within the right middle lobe. No pneumatosis, free air or portal venous gas is present. There is mild bilateral renal atrophy. There is no hydronephrosis. There are no urinary calculi. A Blanchard balloon within the bladder is present. The prostate has decreased in size since CT of November 16, 2019. There is no lymphadenopathy. No suspicious lesions within the visualized skeletal structures. Evaluation of the remainder of the abdomen and pelvis is suboptimal on this unenhanced exam. A 1.7 cm right hepatic lobe cyst is noted. There is no biliary or pancreatic ductal dilatation. Spleen, adrenal glands and pancreas are unremarkable. 3.1 cm infrarenal abdominal aortic aneurysm is present. There is mild dilatation of the bilateral common carotid arteries. There is no evidence for rupture. Large amount stool within the rectum is noted. There is a moderate amount stool within the colon. A loop of small bowel extends into the right inguinal hernia. There is no resultant bowel obstruction. No ascites. No acute fractures. IMPRESSION: 1. No urinary calculi or hydronephrosis. Interval decrease in size of the prostate gland since CT of November 16, 2019. 2. Large amount of stool within the rectum. Moderate amount of stool within the colon. No bowel obstruction. 3. Right inguinal hernia which contains a loop of small bowel. No resultant bowel obstruction. 4. Mild right middle lobe airspace opacity which may reflect an infectious process. 5. 3.1 cm infrarenal abdominal aortic aneurysm. Hospital Course (1) C. difficile diarrhea: (2) Abdominal pain: Presents with right lower abdominal pain followed by small amount of diarrhea Testing positive for C diff CT abdomen showed large amount of stool within the rectum. Moderate amount of stool within the colon. No bowel obstruction. Right inguinal hernia which contains a loop of small bowel. WBC elevated at 23K and BP in the low side Continued Vanco 500mg q6h for possible fulminant C. diff,while inpt. Pt now improved - plan to decrease vanco dose to 250 Q6 on discharge Continued to monitor CBC and electrolytes , WBC normalized Diarrhea improved , stool starting to be more formed Right inguinal hernia Complaint of intermittent right lower side abdominal pain CT abd/pelvis showed right inguinal hernia which contains a loop of small bowel. No resultant bowel obstruction. Imaging finding discussed with and patient at bedside Surgery consulted - not an ideal candidate for repair but if they are interested, this can be pursued via an outpatient evaluation. No need for surgical intervention currently. A fib with RVR New onset of Afib mostly due to acute illness ECHO showed no new wall motion abnormality with EF greater than 70% cardiology following Continue metoprolol 12.5 mg BID (decreased dose) already on coumadin for hx of PE Monitor INR Urinary retention with chronic Blanchard Abnormal UA Urine cx grew gamma strep not enterococcus with low count - No sensitivity to follow Continue to hold on antibiotic Chronic Elevated troponin: Denies chest pain and shortness of breath EKG showed no acute ischemic changes Continue monitor closely History of pulmonary embolism: Chronically anticoagulated on warfarin INR: 3.1 Continue monitor PT/INR Hypertension: BP on the Low side Metoprolol tartrate decreased to 12.5 mg BID due to low BP Continue monitor BP CKD (chronic kidney disease), stage III: Creatinine stable, Baseline 1.2-1.3 Chronic anemia: Hgb: ~11 stable Total Time Total Time Spent Total Time Spent (In Minutes): 40 Discharge Plan Discharge Items Patient Disposition: Transfer Inpatient Rehab Fac Reason For Visit: ABD PAIN, TROP ELEV Discharge Diagnosis: C. difficile infection/colitis A-fib with RVR Activity: Per Instructions section Non-emergency contact: Primary Care Provider Call non-emergency contact if: you have any medication questions and your symptoms worsen Follow-up/Referrals: Jose Angel Vann, [Primary Care Provider] - Diet: Heart Healthy Addtl Attending Provider Instructions: You were diagnosed with C. difficile colitis on this admission. You were treated with vancomycin. You will need to finish treatment with vancomycin, at [facility]. Your metoprolol dose was decreased to 12.5 mg twice a day. Your INR was also closely monitored, and you were receiving warfarin/Coumadin. You will need to have your INR checked within 2 days, and your dose of warfarin will need to be adjusted appropriately. Pending Studies at Discharge: No Stand-Alone Forms: My [facility] Skilled Items Patient informed of condition?: Yes DNR: Yes Discharge Level of Care: Acute rehab Communicable Disease: Yes Discharge Prognosis: Improving Lines: None Urinary Catheter: Yes Medications and DC Order Prescriptions: New metoprolol tartrate 25 mg Tablet 12.5 mg PO BID 30 Days Qty: 30 0RF melatonin 3 mg Tablet 3 mg PO HS PRN (Reason: sleep) Qty: 10 0RF vancomycin 250 mg capsule 250 mg PO Q6H 7 Days Qty: 28 0RF Continued warfarin 5 mg tablet 5 mg PO 5XWK Protocol: Dose Management Protocol Text: Patient Instructed to take: warfarin 5 mg (1 Tab) on , , , , , , SA Rx Instructions: take 5mg every Thursday/Thursday/Thursday//Thursday. warfarin 5 mg tablet 10 mg PO 2XWK Rx Instructions: take 10mg ( two 5mg tablets) every Thursday and Thursday. Discontinued metoprolol tartrate 50 mg tablet 50 mg PO Q12H 30 Days Qty: 60 5RF Discharge Orders: Discharge Order (Routine); Ordered 10/21/22 Ordered By: Carlyle Patton Admission Data Admit Date/Time: 10/12/22 19:16 Attending Provider: Carlyle Patton Admit Provider: Heber Waite Primary Care Provider: Jose Angel Vann Other Providers: Heber Waite ; Cheyanne Garcia ; Cesar Johnson ; Piyush Johnson ; Wilfredo Ortega ; Richard Oconnor ; Salvador Mathur ; Gera Fernandez ; Cat Martinez ; Eva Chaves ; Misty Mott ; Joel Smith ; Deborah Frias ; [facility]
== END 2022-10-21 17:10 | DRG 372 ==
LOC: ED 16:22 → 2W 16:22 → SUATTDRO 10-12 19:16

== ENCOUNTER 2022-11-21 17:23 | Inpatient (IN) ==
--- NOTE | 2022-11-21 17:42 | Emergency Department Note ---
History of Present Illness General Chief complaint: Leg Injury/Pain Stated complaint: LEGS HURT Time Seen by Provider: 11/21/22 17:28 History of Present Illness 89-year-old male presents emergency department from home reportedly has been at [facility] recently and now is at home. Patient has a history of A-fib he is on Coumadin. Patient today due to leg pain. Patient states pain below the knee on the right side. Patient denies any trauma. Patient states that he does not walk. Patient denies numbness or tingling. Patient denies any difficulty moving his foot or his toes. Patient has a general vague complaint of leg pain. Patient denies chest pain shortness of breath abdominal pain nausea vomiting. There were no other mitigating or alleviating factors Home Medications Medication Instructions Recorded Confirmed Type warfarin 5 mg tablet 5 mg PO DAILY 10/11/22 11/21/22 History metoprolol succinate 25 mg 25 mg PO DAILY 11/21/22 11/21/22 History tablet,extended release 24 hr sertraline 25 mg tablet 25 mg PO DAILY 11/21/22 11/21/22 History Allergies Allergy/AdvReac Type Severity Reaction Status Date / Time Penicillins Allergy Unknown HAPPENED A Verified 10/11/22 19:24 LONG TIME AGO Past Med/Surg History Medical History Anticoagulant long-term use Atrial fibrillation CKD (chronic kidney disease), stage III H/O deep venous thrombosis History of pulmonary embolism Malignant neoplasm of prostate Prolonged NC interval Urinary incontinence Urinary retention Surgical History History of tonsillectomy Family History Daughter Diabetes Other Family history non-contributory Social History Smoking Status: Former smoker Tobacco Type: Pipe and Cigars Second Hand Exposure: No; Hx Alcohol Use: No Hx Substance Use: No Preferred Language: Syriac Communication Ability: Effective Staging Technician Required: No Beliefs That Will Affect Care: None marital status: Current Living Situation: Spouse and Family Current Living Situation Comment: lives w/ and dtr Feels Safe at Home: Yes Assistive Devices: Cane, Glasses and Walker Review of Systems A total of 10 systems reviewed and were otherwise negative Musculoskeletal: + radicular pain Neurologic: no paresthesia Physical Exam Vital Signs Vital Signs - 24 hr 11/21/22 17:25 11/21/22 17:48 11/21/22 18:00 Temperature 36.5 C Temperature Source Oral Pulse Rate 78 73 Pulse Rate [Right Finger] Pulse Rhythm [Right Finger] Pulse Strength [Right Finger] Respiratory Rate 20 Respiratory Effort / Characteristics Non-Labored Respiratory Depth Normal Respiratory Pattern Blood Pressure 118/80 Blood Pressure [Right Arm] Blood Pressure Mean 92 Blood Pressure Mean [Right Arm] Blood Pressure Position [Right Arm] Pulse Oximetry 98 Oxygen Delivery Method Room Air Room Air Sepsis Recent Fever Within 48 Hours No Sepsis New/Unexplained Change in Mental Status N/A Sepsis Action Taken by Nursing No Action Required 11/21/22 18:49 11/21/22 19:15 Temperature Temperature Source Pulse Rate Pulse Rate [Right Finger] 70 66 Pulse Rhythm [Right Finger] Regular Pulse Strength [Right Finger] Normal Respiratory Rate 18 19 Respiratory Effort / Characteristics Non-Labored Non-Labored Spontaneous Respiratory Depth Normal Normal Respiratory Pattern Regular Blood Pressure Blood Pressure [Right Arm] 98/71 L 113/66 Blood Pressure Mean Blood Pressure Mean [Right Arm] 80 81 Blood Pressure Position [Right Arm] Lying Pulse Oximetry 99 96 Oxygen Delivery Method Room Air Room Air Sepsis Recent Fever Within 48 Hours Sepsis New/Unexplained Change in Mental Status Sepsis Action Taken by Nursing GENERAL: Patient is awake alert in no acute distress patient is resting comfortably and showing no signs of anxiety EYES: The conjunctivae are clear. The pupils are round and reactive. EARS, NOSE, MOUTH AND THROAT: The nose is without any evidence of any deformity. Mucous membranes are moist. Tongue is midline. NECK: The neck is nontender and supple. RESPIRATORY: Normal respiratory effort is noted there is no evidence of wheezing rhonchi or rales CARDIOVASCULAR: Irregular rate and rhythm noted there no murmurs rubs or gallops normal S1 normal S2. GASTROINTESTINAL: The abdomen is soft. Abdomen is nontender. There are no abno rmal aortic pulsations or abdominal masses PELVIS: The Pelvis is stable. No tenderness to palpation is noted. BACK: No midline tenderness or or step-off noted range of motion in flexion extension as well as rotation no signs of muscle spasm noted MUSCULOSKELETAL/EXTREMITIES: There is no evidence of gross deformity full range of motion is noted in the hips and shoulders. Patient has full range of motion of the bilateral lower extremities there is a Blanchard catheter bag attached to the patient's right inner thigh. Patient's right lower extremity has a bounding femoral artery pulse, has a palpable popliteal pulse and a Doppler DP pulse present the right foot is mildly cold in comparison to the left foot. He has full range of motion of the right ankle and the right foot SKIN: There is no obvious evidence of any rash. There are no petechiae, pallor or cyanosis noted. NEUROLOGIC: Patient is awake alert and oriented x3 strength is symmetric Course Reevaluation(s) Reevaluation #1: Patient is resting in no distress on repeat examination. Patient has no leg pain at this time he is able to move his leg his leg is warm. Patient is in no abdominal pain no abdominal masses. Patient initially reportedly would not remove his pants and the systems technologist was only able to get from the popliteal down which had normal flow. I discussed this with the harness and bag inspector and the fact that there is good flow from the popliteal down essentially rules out the concern for arterial occlusion below the popliteal at this time. Patient does have a bounding femoral arterial pulse Time: 19:49 Reevaluation #2: Reportedly the patient cannot be handled at home according to the family who spoke with the nurse. Spoke with case management they did reach out and states patient can be admitted for placement Time: 20:48 Consultations Consultation #1: Spoke with Dr Waite for admit Time: 20:48 Medical Decision Making Medical Records Attestation: I reviewed the patient's medical records. Home Medications Current Medication List: was personally reviewed by me Laboratory Data Attestation: I reviewed the patient's lab results. Labs were reviewed by me patient is anticoagulated 11/21/22 17:53 11/21/22 17:53 Lab Results 11/21/22 11/21/22 11/21/22 Range/Units 17:53 17:53 17:53 WBC 10.03 (4.8-10.8) K/ul RBC 3.79 L (4.70-6.10) M/uL Hgb 12.0 L (14.0-18.0) g/dl Hct 34.4 L (42.0-52.0) % MCV 90.8 (80.0-100.0) fL MCH 31.7 (25.0-34.0) pg MCHC 34.9 (32.0-36.0) g/dL RDW Std Deviation 43.6 (36.4-46.3) fL RDW Coeff of Sangeetha 13.2 (11.5-14.5) % Plt Count 221 (130-400) K/uL MPV 10.8 (9.4-12.4) fL Immature Gran % (Auto) 0.2 % Neut % (Auto) 63.4 % Lymph % (Auto) 25.6 % [place] % (Auto) 8.5 % Eos % (Auto) 1.8 % Baso % (Auto) 0.5 % Neut # (Auto) 6.36 (1.40-6.50) K/uL Lymph # (Auto) 2.57 (1.2-3.4) K/uL [place] # (Auto) 0.85 H (0.11-0.59) K/uL Eos # (Auto) 0.18 (0-0.50) K/uL Baso # (Auto) 0.05 (0-0.2) K/uL Immature Gran # (Auto) 0.02 (0.01-0.20) K/uL PT 25.9 H (9.0-12.0) Seconds INR 2.6 H (0.9-1.1) APTT 40.1 H (21.0-31.0) Seconds PTT Ratio 1.5 Sodium 134 L (136-145) mmol/L Potassium 3.9 (3.5-5.1) mmol/L Chloride 103 (98-107) mmol/L Carbon Dioxide 28 (21-32) mmol/L Anion Gap 3 (3-11) BUN 23 (6-23) mg/dl Creatinine 1.12 (0.6-1.4) mg/dl Est Cr Clr Drug Dosing 46.2 ml/min Est GFR ( Amer) 67.1 ml/min Est GFR (Non-Af Amer) 57.9 ml/min BUN/Creatinine Ratio 20.5 H (10-20) Glucose 108 H (70-99(Fasting)) mg/dl Calcium 9.0 (8.5-10.1) mg/dl Total Bilirubin 0.7 (0.2-1.0) mg/dl AST 16 (13-39) U/L ALT 9 (7-52) U/L Alkaline Phosphatase 64 (34-104) U/L Total Protein 7.4 (6.0-8.3) gm/dl Albumin 3.9 (3.4-5.0) gm/dl Globulin 3.5 (2.5-4.0) gm/dl Albumin/Globulin Ratio 1.1 (0.9-2) Imaging Data Attestation: I personally reviewed and interpreted this imaging study as follows: My Impression: Ultrasound was reviewed by me Radiologist's Impression: Duplex Scan Lower Extremity Artery 11/21/22 17:36 ULTRASOUND RIGHT LOWER EXTREMITY ARTERIAL CLINICAL HISTORY: Right leg pain. COMPARISON STUDY: No priors. TECHNIQUE: Real-time grayscale and color Doppler sonography of the arteries of the right lower extremity is performed from the popliteal artery to the foot. The patient declined to remove their pants and the common femoral/superficial femoral arteries could not be evaluated. FINDINGS: There is atherosclerotic plaque throughout the visualized lower extremities arteries. The popliteal artery is patent with normal arterial waveforms and velocities measuring up to 47 cm/s. There is three-vessel runoff to the foot. Velocities in the calf arteries measure up to 88 cm/s. Normal Doppler waveforms are shown within the calf arteries. The dorsalis pedis artery is patent with velocities measuring up to 25 cm/s. IMPRESSION: 1. Atherosclerotic plaque with no sonographic evidence of high-grade stenosis or focal vessel cut off in the popliteal or calf arteries. 2. The common femoral and superficial femoral arteries were not assessed as the patient declined to remove their pants. Electronically signed by: Steven Marcus M.D. 11/21/2022 6:58 PM ECG Data Attestation: I personally reviewed and interpreted this ECG as follows: Additional Comments: EKG interpreted by me atrial fibrillation rate of 75 right bundle branch block no obvious ST segment elevation or depression Telemetry was ordered by me, and interpreted by me as atrial fibrillation rate of 72 MDM Narrative Medical decision making differential diagnosis includes neuropathy, electrolyte abnormality, clotting in, myopathy, arterial occlusion External medical records were reviewed by me EMS report was given to me at bedside Plan is to check labs, EKG, ultrasound right lower extremity Patient had a negative ultrasound below the popliteal with good flow I do not suspect arterial occlusion at this time his exam he has full range of motion Plan is to follow-up Impression & Plan Leg pain, right Discharge Plan Visit Data Chief Complaint: Leg Injury/Pain Stated Complaint: LEGS HURT ED Provider: Cesar Muniz Discharge Problem: Leg pain, right Patient Disposition: Admitted As Inpatient Discharge Instructions Adalid/Other Patient Handouts: ED Leg Spasm Forms Stand Alone Forms: [facility], [facility] Emergency Department, Important Visit Information Prescriptions Prescriptions: No Action sertraline 25 mg tablet 25 mg PO DAILY metoprolol succinate 25 mg tablet extended release 24 hr 25 mg PO DAILY warfarin 5 mg tablet 5 mg PO DAILY Referrals Referrals: Jose Angel Vann DO [Primary Care Provider] -
[2022-11-21 18:22] LABS: Basophils # (auto) 0.05 K/uL (0-0.2); Basophils % (auto) 0.5 %; Eosinophils # (auto) 0.18 K/uL (0-0.50); Eosinophils % (auto) 1.8 %; Hematocrit (blood only) 34.4 % (42.0-52.0); Immature Granulocytes # (auto) 0.02 K/uL (0.01-0.20); Immature Granulocytes % (auto) 0.2 %; Lymphocytes # (auto) 2.57 K/uL (1.2-3.4); Lymphocytes % (auto) 25.6 %; Mean Corpuscular Hemoglobin 31.7 pg (25.0-34.0); Mean Corpuscular Hgb Conc 34.9 g/dL (32.0-36.0); Mean Corpuscular Volume 90.8 fL (80.0-100.0); Mean Platelet Volume 10.8 fL (9.4-12.4); Monocytes # (auto) 0.85 K/uL (0.11-0.59); Monocytes % (auto) 8.5 %; Neutrophils # (auto) 6.36 K/uL (1.40-6.50); Neutrophils % (auto) 63.4 %; Platelet Count 221 K/uL (130-400); RDW Coefficient of Variation 13.2 % (11.5-14.5); RDW Standard Deviation 43.6 fL (36.4-46.3); Red Blood Count 3.79 M/uL (4.70-6.10); White Blood Count 10.03 K/ul (4.8-10.8)
[2022-11-21 18:31] LABS: Albumin Globulin Ratio 1.1 (0.9-2); Albumin Level 3.9 gm/dl (3.4-5.0); BUN Creatinine Ratio 20.5 (10-20); Bilirubin,Total 0.7 mg/dl (0.2-1.0); Creatinine Clr Calc Pharmacy 46.2 ml/min; Est GFR (African American) 67.1 ml/min; Est GFR (Non-African American) 57.9 ml/min; Globulin 3.5 gm/dl (2.5-4.0); Potassium 3.9 mmol/L (3.5-5.1); Total Protein 7.4 gm/dl (6.0-8.3)
--- NOTE | 2022-11-21 18:59 | Ultrasound Report ---
ULTRASOUND RIGHT LOWER EXTREMITY ARTERIAL CLINICAL HISTORY: Right leg pain. COMPARISON STUDY: No priors. TECHNIQUE: Real-time grayscale and color Doppler sonography of the arteries of the right lower extrem ity is performed from the popliteal artery to the foot. The patient declined to remove their pants an d the common femoral/superficial femoral arteries could not be evaluated. FINDINGS: There is atherosclerotic plaque throughout the visualized lower extremities arteries. The p opliteal artery is patent with normal arterial waveforms and velocities measuring up to 47 cm/s. Ther e is three-vessel runoff to the foot. Velocities in the calf arteries measure up to 88 cm/s. Normal D oppler waveforms are shown within the calf arteries. The dorsalis pedis artery is patent with velocit ies measuring up to 25 cm/s. IMPRESSION: 1. Atherosclerotic plaque with no sonographic evidence of high-grade stenosis or focal vessel cut off in the popliteal or calf arteries. 2. The common femoral and superficial femoral arteries were not assessed as the patient declined to r emove their pants. Electronically signed by: Steven Marcus M.D. 11/21/2022 6:58 PM
[2022-11-21 19:23] LABS: INR 2.6 (0.9-1.1); Partial Thromboplastin Ratio 1.5; Partial Thromboplastin Time 40.1 Seconds (21.0-31.0); Prothrombin Time 25.9 Seconds (9.0-12.0)
[2022-11-21] MEDS ORDERED: LACTATED RINGER'S 1,000 ML IV ONE ×2 (20:50→23:30)
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
[2022-11-21 21:36] LABS: Magnesium 2.1 mg/dl (1.7-2.4)
[2022-11-21] MEDS ORDERED: ACETAMINOPHEN 325 MG TAB PO STA (22:29)
[2022-11-21] MEDS ORDERED: ACETAMINOPHEN 325 MG TAB PO PRN (23:59)
[2022-11-21] MEDS ORDERED: PROMETHAZINE HCL 6.25 MG in SODIUM CHLORIDE 0.9% 50 ML IV PRN (23:59)
[2022-11-22 01:22] LABS: Appearance Urine Turbid (Clear); Bacteria Urine Automated 4+ (Negative); Bilirubin Urine Negative (Negative); Blood Urine Trace (Negative); Color Urine Yellow; Glucose Urine UA Negative (Negative); Ketones Urine Negative (Negative); Leukocyte Esterase Urine 3+ (Negative); Nitrite Urine Positive (Negative); RBC Urine Automated 0-4 /hpf (0-4); Specific Gravity Urine 1.014 (1.000-1.030); Urobilinogen Urine Negative (Negative); WBC Urine Automated >30 /hpf (0-5)
[2022-11-22 01:31] LABS: Protein Urine 1+ (Negative)
[2022-11-22] MEDS: CEFEPIME 2,000 MG in SYRINGE 0 ML IV SCH ×2 (02:22→13:39)
[2022-11-22] MEDS: traMADol HCL 50 MG TABLET PO PRN (04:21)
[2022-11-22 07:14] LABS: Basophils # (auto) 0.04 K/uL (0-0.2); Basophils % (auto) 0.5 %; Eosinophils # (auto) 0.13 K/uL (0-0.50); Eosinophils % (auto) 1.7 %; Hematocrit (blood only) 33.7 % (42.0-52.0); Hemoglobin 11.8 g/dl (14.0-18.0); Immature Granulocytes # (auto) 0.04 K/uL (0.01-0.20); Immature Granulocytes % (auto) 0.5 %; Lymphocytes # (auto) 2.18 K/uL (1.2-3.4); Lymphocytes % (auto) 28.8 %; Mean Corpuscular Hemoglobin 31.8 pg (25.0-34.0); Mean Corpuscular Volume 90.8 fL (80.0-100.0); Mean Platelet Volume 10.6 fL (9.4-12.4); Monocytes # (auto) 0.67 K/uL (0.11-0.59); Monocytes % (auto) 8.9 %; Neutrophils # (auto) 4.51 K/uL (1.40-6.50); Neutrophils % (auto) 59.6 %; Platelet Count 199 K/uL (130-400); RDW Coefficient of Variation 13.1 % (11.5-14.5); RDW Standard Deviation 42.8 fL (36.4-46.3); Red Blood Count 3.71 M/uL (4.70-6.10); White Blood Count 7.57 K/ul (4.8-10.8)
[2022-11-22 07:21] LABS: BUN Creatinine Ratio 18.3 (10-20); Creatinine Clr Calc Pharmacy 48.2 ml/min; Est GFR (African American) 73.4 ml/min; Est GFR (Non-African American) 63.4 ml/min; Potassium 4.2 mmol/L (3.5-5.1)
[2022-11-22 07:33] LABS: INR 2.3 (0.9-1.1); Prothrombin Time 23.5 Seconds (9.0-12.0)
--- NOTE | 2022-11-22 09:10 | XRay Report ---
XR femur RT 2V routine CLINICAL HISTORY: pain TECHNIQUE: 2 radiographic views of the right femur were obtained. Comparison: None available at the time of this dictation. FINDINGS: Exam is limited by patient positioning. Within these limits, no acute fracture is seen. Degenerative changes are seen in the hip and knee joints. Vascular calcifications are noted. IMPRESSION: Degenerative changes without evidence of acute bony injury. ACT 112: Negative or not required by law. Electronically signed by: Hans Wheeler M.D. 11/22/2022 9:08 AM
[2022-11-22] MEDS: SERTRALINE HCL 50 MG TABLET PO SCH (09:45)
--- NOTE | 2022-11-22 10:05 | XRay Report ---
XR tibia fibula RT 2V CLINICAL HISTORY: pain TECHNIQUE: 2 radiographic views of the right leg were obtained. Comparison: Comparison is made to right femur radiograph 11/21/2022 FINDINGS: There is no evidence of an acute fracture. Osteophyte formation and joint space narrowing is seen mos t prominent in the Vascular calcifications are seen. IMPRESSION: No evidence of acute osseous injury. ACT 112: Negative or not required by law. Electronically signed by: Hans Wheeler M.D. 11/22/2022 10:04 AM
[2022-11-22] MEDS: METOPROLOL SUCC 25MG EXT REL TAB PO SCH (10:16)
--- NOTE | 2022-11-22 14:05 | Electrocardiogram Report ---
Test Reason : Blood Pressure : / mmHG Vent. Rate : 075 BPM Atrial Rate : 074 BPM P-R Int : 000 ms QRS Dur : 136 ms QT Int : 424 ms P-R-T Axes : 000 036 -01 degrees QTc Int : 473 ms Normal sinus rhythm Long First degree AVB Right bundle branch block Abnormal ECG When compared with ECG of 13-OCT-2022 08:23, wenkebach physiology no longer present Confirmed by Song Gama ([id number]) on 11/22/2022 2:05:23 PM Referred By: REFERRED SELF Confirmed By:Song Gama
--- NOTE | 2022-11-22 14:11 | Hospitalist Progress Note ---
Date of Service November 22, 2022 Assessment & Plan (1) Leg pain, right: (2) Ambulatory dysfunction: (3) Atrial fibrillation: (4) History of pulmonary embolism: (5) CKD (chronic kidney disease), stage III: (6) Hypertension: (7) Chronic anemia: Plan: FINAL ASSESSMENT AND PLAN as follows : Hypotension possible hypovolemia - continue gentle IV fluids Complicated UTI, history urinary retention with chronic indwelling Blanchard catheter, prostate cancer status post Lupron Rx, no overt sepsis for now -- urine culture: pending colonization? -- continue Cefepime IV has C diff history may need ID consult RLE pain rule out bony injury -- Femur, Tib/Fib xray: no acute Fx Foot Xray: pending -- pain control with PRN Tramadol hx A-fib/PE on Coumadin -- INR therapeutic chronic anemia, hemoglobin at baseline chronic cognitive impairment, patient currently mentating well functional disability, patient does not feel can care for him anymore at home. Recent C. difficile status post Rx Anxiety/mood disorder, patient denies suicidality, recent sertraline Rx outpatient past tobacco abuse PT OT eval Social service re: placement DVT prophylaxis. Coumadin INR goal between 2 and 3 if no bony injury on x-rays requiring orthopedics evaluation DNR as per patient's prior wishes. plan of care discussed with patient and his in detail and at length all questions answered they are understanding, agreeable, comfortable with the plan of care Admission and Anticipated Discharge Date Admission Date: November 21, 2022 Subjective ff up for R leg pain, possible UTI, etc seen resting in bed, comfortable states leg pain is improving denies abdominal pain, fever/chills no other symptoms Review of Systems Review of Systems: all noted and negative except for above Physical Exam Physical Exam: General- oriented x 3, not in distress, speaks in sentences with no effort or accessory muscle use Eyes- anicteric Neck- no JVD Lungs- clear breath sounds bilaterally, no rales/wheezes Heart- normal rate, regular rhythm; no murmurs Abdomen- normal bowel sounds, nondistended, soft, nontender Blanchard cath in place: yellow urine Extremities- no pretibial edema, no calf tenderness Neuro- alert, oriented x 3; no gross focal neurologic deficits Skin- warm & dry Results & Data Results & Data ([facility]) Vital Signs (Past 12 Hours) Vital Signs Temp Pulse Pulse Resp BP Pulse Ox O2 Del Method 11/22/22 09:00 Room Air 11/22/22 11:52 75 11/22/22 10:53 36.5 C 70 16 100/63 97 Room Air 11/22/22 07:00 36.4 C L 96 H 16 129/76 95 Room Air 11/22/22 03:46 36.5 C 68 18 116/65 98 Room Air all noted and reviewed including below
--- NOTE | 2022-11-22 19:00 | XRay Report ---
XR ankle RT min 3V routine, XR foot RT min 3V routine CLINICAL HISTORY: heel pain, r/o fracture TECHNIQUE: 3 views of the right ankle and 3 views of the right foot were obtained. Comparison: None available at the time of this dictation. FINDINGS: No acute fractures are present. Plantar and Achilles enthesophytes are seen. The ankle mortise is int act. Vascular calcifications are seen. IMPRESSION: Degenerative changes without evidence of acute fractures. ACT 112: Negative or not required by law. Electronically signed by: Hans Wheeler M.D. 11/22/2022 6:58 PM
[2022-11-23] MEDS: CEFEPIME 2,000 MG in SYRINGE 0 ML IV SCH ×2 (03:17→14:01)
[2022-11-23] MEDS: METOPROLOL SUCC 25MG EXT REL TAB PO SCH (08:48)
[2022-11-23] MEDS: SERTRALINE HCL 50 MG TABLET PO SCH (08:49)
[2022-11-23] MEDS: ADVANCED PROBIOTIC 1250 MG CAPSULE PO SCH (08:49)
[2022-11-23] MEDS: VANCOMYCIN HCL 125 MG/2.5ML SOLN PO SCH (08:49)
[2022-11-23] MEDS: RASPBERRY SYRUP 5 ML UDP PO SCH (08:49)
--- NOTE | 2022-11-23 17:15 | Hospitalist Progress Note ---
Date of Service November 23, 2022 Assessment & Plan (1) Leg pain, right: (2) Ambulatory dysfunction: (3) Atrial fibrillation: (4) History of pulmonary embolism: (5) CKD (chronic kidney disease), stage III: (6) Hypertension: (7) Chronic anemia: Plan: FINAL ASSESSMENT AND PLAN as follows : Dizziness, weakness, secondary to orthostatic hypotension - continue gentle IV fluids -Hold metoprolol -Check cortisol, TSH -SATYA hoses Complicated UTI, history urinary retention with chronic indwelling Blanchard catheter, prostate cancer status post Lupron Rx -- urine culture: Gram-negative bacilli -- continue Cefepime IV Treated for C diff last month Vancomycin 125 mg p.o. daily ordered, should be continued 1 week after antibiotic treatment -- Blanchard catheter changed November to 05/03/2023 RLE pain rule out bony injury -- Femur, Tib/Fib xray: no acute Fx Foot Xray: No acute fracture -- pain control with PRN Tramadol hx A-fib/PE on Coumadin -- INR therapeutic Repeat tomorrow --Continue Coumadin --Metoprolol on hold in light of orthostatic hypotension chronic anemia, hemoglobin at baseline chronic cognitive impairment, patient currently mentating well functional disability, patient does not feel can care for him anymore at home. Recent C. difficile status post Rx Anxiety/mood disorder, patient denies suicidality, recent sertraline Rx outpatient past tobacco abuse PT OT eval Social service re: placement DVT prophylaxis. Coumadin INR goal between 2 and 3 DNR as per patient's prior wishes. plan of care discussed with patient and his in detail and at length all questions answered they are understanding, agreeable, comfortable with the plan of care Admission and Anticipated Discharge Date Admission Date: November 21, 2022 Subjective Follow-up for hypotension, UTI, etc. Seen sitting up in bed, comfortable, not distressed States he feels okay overall Still feels dizzy when standing No abdominal pain, no fevers or chills No other symptoms Review of Systems Review of Systems: all noted and negative except for above Physical Exam Physical Exam: General- oriented x 3, not in distress, speaks in sentences with no effort or accessory muscle use Eyes- anicteric Neck- no JVD Lungs- clear breath sounds bilaterally, no rales/wheezes Heart- normal rate, regular rhythm; no murmurs Abdomen- normal bowel sounds, nondistended, soft, nontender Blanchard catheter in place, yellow urine Extremities- no pretibial edema, no calf tenderness Neuro- alert, oriented x 3; no gross focal neurologic deficits Skin- warm & dry Results & Data Results & Data ([facility]) Vital Signs (Past 12 Hours) Vital Signs Temp Pulse Pulse Resp BP Pulse Ox O2 Del Method 11/23/22 15:34 75 11/23/22 15:03 36.6 C 82 20 109/66 97 Room Air 11/23/22 11:12 36.4 C L 79 16 104/86 98 Room Air 11/23/22 08:45 Room Air 11/23/22 07:30 36.2 C L 78 16 117/75 99 Room Air 11/23/22 07:17 72 all noted and reviewed including below
[2022-11-23] MEDS: SODIUM CHLORIDE 0.9% 1000ML 1,000 ML IV SCH (17:51)
[2022-11-23] MEDS: WARFARIN SOD 5 MG TAB PO SCH (19:37)
[2022-11-23] MEDS: traMADol HCL 50 MG TABLET PO PRN (22:15)
[2022-11-24] MEDS: CEFEPIME 2,000 MG in SYRINGE 0 ML IV SCH (01:40)
[2022-11-24] MEDS: SODIUM CHLORIDE 0.9% 1000ML 1,000 ML IV SCH ×3 (05:24→20:06)
[2022-11-24 07:40] LABS: Basophils # (auto) 0.03 K/uL (0-0.2); Basophils % (auto) 0.4 %; Eosinophils # (auto) 0.18 K/uL (0-0.50); Eosinophils % (auto) 2.4 %; Hematocrit (blood only) 32.7 % (42.0-52.0); Hemoglobin 11.4 g/dl (14.0-18.0); Immature Granulocytes # (auto) 0.02 K/uL (0.01-0.20); Immature Granulocytes % (auto) 0.3 %; Lymphocytes # (auto) 2.48 K/uL (1.2-3.4); Lymphocytes % (auto) 32.4 %; Mean Corpuscular Hemoglobin 31.8 pg (25.0-34.0); Mean Corpuscular Hgb Conc 34.9 g/dL (32.0-36.0); Mean Corpuscular Volume 91.3 fL (80.0-100.0); Mean Platelet Volume 10.4 fL (9.4-12.4); Monocytes # (auto) 0.75 K/uL (0.11-0.59); Monocytes % (auto) 9.8 %; Neutrophils # (auto) 4.19 K/uL (1.40-6.50); Neutrophils % (auto) 54.7 %; Platelet Count 190 K/uL (130-400); RDW Coefficient of Variation 13.2 % (11.5-14.5); RDW Standard Deviation 44.7 fL (36.4-46.3); Red Blood Count 3.58 M/uL (4.70-6.10); White Blood Count 7.65 K/ul (4.8-10.8)
[2022-11-24 07:57] LABS: Calcium 8.7 mg/dl (8.5-10.1); Creatinine Clr Calc Pharmacy 47.2 ml/min; Est GFR (African American) 71.8 ml/min; Est GFR (Non-African American) 61.9 ml/min; Potassium 4.2 mmol/L (3.5-5.1)
[2022-11-24 08:09] LABS: INR 1.6 (0.9-1.1); Prothrombin Time 16.4 Seconds (9.0-12.0)
[2022-11-24] MEDS: ADVANCED PROBIOTIC 1250 MG CAPSULE PO SCH (08:48)
[2022-11-24] MEDS: RASPBERRY SYRUP 5 ML UDP PO SCH ×2 (08:48→20:07)
[2022-11-24] MEDS: SERTRALINE HCL 50 MG TABLET PO SCH (08:48)
[2022-11-24] MEDS: VANCOMYCIN HCL 125 MG/2.5ML SOLN PO SCH ×2 (08:50→20:07)
[2022-11-24] MEDS ORDERED: SODIUM CHLORIDE 0.9% 1000ML 500 ML IV ONE ×2 (10:26→16:23)
--- NOTE | 2022-11-24 15:09 | Hospitalist Progress Note ---
Date of Service November 24, 2022 Assessment & Plan (1) Leg pain, right: (2) Ambulatory dysfunction: (3) Atrial fibrillation: (4) History of pulmonary embolism: (5) CKD (chronic kidney disease), stage III: (6) Hypertension: (7) Chronic anemia: Plan: FINAL ASSESSMENT AND PLAN as follows : Dizziness, weakness, secondary to orthostatic hypotension Orthostatic positive today again; dizziness on standing. Bolus of 500cc NS given; continue on NS at 125 cc/h. -Hold metoprolol -SATYA hoses Complicated UTI, history urinary retention with chronic indwelling Blanchard catheter, prostate cancer status post Lupron Rx Asymptomatic bacteriuria: Urine culture positive. Patient denies any fever, chills or abdominal pain. Leukocytosis absent Hold antibiotics for now. RLE pain rule out bony injury -- Femur, Tib/Fib xray: no acute Fx Foot Xray: No acute fracture -- pain control with PRN Tramadol hx A-fib/PE on Coumadin -- INR subtherapeutic Repeat tomorrow --Continue Coumadin --Metoprolol on hold in light of orthostatic hypotension chronic anemia, hemoglobin at baseline chronic cognitive impairment, patient currently mentating well functional disability, patient does not feel can care for him anymore at home. Recent C. difficile status post Rx Anxiety/mood disorder, patient denies suicidality, recent sertraline Rx outpatient past tobacco abuse PT OT evalrecommend rehab. Social service re: placement DVT prophylaxis. Coumadin INR goal between 2 and 3 DNR as per patient's prior wishes. Admission and Anticipated Discharge Date Admission Date: November 21, 2022 Subjective Patient seen and examined at bedside. He is comfortably lying in the bed; not in any distress. Denies fever or chills, chest pain, shortness of breath or abdominal pain. Review of Systems Review of Systems: All systems reviewed & are unremarkable except as noted in Subjective Physical Exam Physical Exam: General- oriented x 3, not in distress, speaks in sentences with no effort or accessory muscle use Eyes- anicteric Neck- no JVD Lungs- clear breath sounds bilaterally, no rales/wheezes Heart- normal rate, regular rhythm; no murmurs Abdomen- normal bowel sounds, nondistended, soft, nontender Blanchard catheter in place, clear urine Extremities- no pretibial edema, no calf tenderness Neuro- alert, oriented x 3; no gross focal neurologic deficits Skin- warm & dry Results & Data Results & Data ([facility]) Vital Signs (Past 12 Hours) Vital Signs Temp Pulse Pulse Resp BP Pulse Ox O2 Del Method 11/24/22 11:24 36.6 C 72 20 115/68 97 Room Air 11/24/22 08:45 Room Air 11/24/22 07:37 36.5 C 79 19 118/72 97 Room Air 11/24/22 07:27 75 11/24/22 04:03 36.6 C 75 18 111/69 96 Room Air Laboratory Results Laboratory Results WBC 7.65 K/ul (4.8-10.8) 11/24/22 07:17 RBC 3.58 M/uL (4.70-6.10) L 11/24/22 07:17 Hgb 11.4 g/dl (14.0-18.0) L 11/24/22 07:17 Hct 32.7 % (42.0-52.0) L 11/24/22 07:17 MCV 91.3 fL (80.0-100.0) 11/24/22 07:17 MCH 31.8 pg (25.0-34.0) 11/24/22 07:17 MCHC 34.9 g/dL (32.0-36.0) 11/24/22 07:17 RDW Std Deviation 44.7 fL (36.4-46.3) 11/24/22 07:17 RDW Coeff of Sangeetha 13.2 % (11.5-14.5) 11/24/22 07:17 Plt Count 190 K/uL (130-400) 11/24/22 07:17 MPV 10.4 fL (9.4-12.4) 11/24/22 07:17 Immature Gran % (Auto) 0.3 % 11/24/22 07:17 Neut % (Auto) 54.7 % 11/24/22 07:17 Lymph % (Auto) 32.4 % 11/24/22 07:17 [place] % (Auto) 9.8 % 11/24/22 07:17 Eos % (Auto) 2.4 % 11/24/22 07:17 Baso % (Auto) 0.4 % 11/24/22 07:17 Neut # (Auto) 4.19 K/uL (1.40-6.50) 11/24/22 07:17 Lymph # (Auto) 2.48 K/uL (1.2-3.4) 11/24/22 07:17 [place] # (Auto) 0.75 K/uL (0.11-0.59) H 11/24/22 07:17 Eos # (Auto) 0.18 K/uL (0-0.50) 11/24/22 07:17 Baso # (Auto) 0.03 K/uL (0-0.2) 11/24/22 07:17 Immature Gran # (Auto) 0.02 K/uL (0.01-0.20) 11/24/22 07:17 PT 16.4 Seconds (9.0-12.0) H 11/24/22 07:17 INR 1.6 (0.9-1.1) H 11/24/22 07:17 APTT 40.1 Seconds (21.0-31.0) H 11/21/22 17:53 PTT Ratio 1.5 11/21/22 17:53 Sodium 137 mmol/L (136-145) 11/24/22 07:17 Potassium 4.2 mmol/L (3.5-5.1) 11/24/22 07:17 Chloride 106 mmol/L (98-107) 11/24/22 07:17 Carbon Dioxide 26 mmol/L (21-32) 11/24/22 07:17 Anion Gap 5 (3-11) 11/24/22 07:17 BUN 17 mg/dl (6-23) 11/24/22 07:17 Creatinine 1.06 mg/dl (0.6-1.4) 11/24/22 07:17 Est Cr Clr Drug Dosing 47.2 ml/min 11/24/22 07:17 Est GFR ( Amer) 71.8 ml/min 11/24/22 07:17 Est GFR (Non-Af Amer) 61.9 ml/min 11/24/22 07:17 BUN/Creatinine Ratio 16.0 (10-20) 11/24/22 07:17 Glucose 95 mg/dl (70-99(Fasting)) 11/24/22 07:17 Lactate 0.9 mmol/L (0.4-2.0) 11/21/22 23:09 Calcium 8.7 mg/dl (8.5-10.1) 11/24/22 07:17 Magnesium 2.1 mg/dl (1.7-2.4) 11/21/22 17:53 Total Bilirubin 0.7 mg/dl (0.2-1.0) 11/21/22 17:53 AST 16 U/L (13-39) 11/21/22 17:53 ALT 9 U/L (7-52) 11/21/22 17:53 Alkaline Phosphatase 64 U/L (34-104) 11/21/22 17:53 Total Creatine Kinase 32 U/L (30-223) 11/21/22 17:53 Total Protein 7.4 gm/dl (6.0-8.3) 11/21/22 17:53 Albumin 3.9 gm/dl (3.4-5.0) 11/21/22 17:53 Globulin 3.5 gm/dl (2.5-4.0) 11/21/22 17:53 Albumin/Globulin Ratio 1.1 (0.9-2) 11/21/22 17:53 TSH 2.413 uIu/ml (0.300-4.500) 11/24/22 07:17 Cortisol AM Sample 12.50 mcg/dl (6.2-22.6) 11/24/22 07:17 Urine Color Yellow 11/22/22 01:00 Urine Appearance Turbid (Clear) A 11/22/22 01:00 Urine pH 8.0 (4.5-7.5) H 11/22/22 01:00 Ur Specific [place] 1.014 (1.000-1.030) 11/22/22 01:00 Urine Protein 1+ (Negative) H 11/22/22 01:00 Urine Glucose (UA) Negative (Negative) 11/22/22 01:00 Urine Ketones Negative (Negative) 11/22/22 01:00 Urine Blood Trace (Negative) H 11/22/22 01:00 Urine Nitrite Positive (Negative) A 11/22/22 01:00 Urine Bilirubin Negative (Negative) 11/22/22 01:00 Urine Urobilinogen Negative (Negative) 11/22/22 01:00 Ur Leukocyte Esterase 3+ (Negative) H 11/22/22 01:00 Urine WBC (Auto) >30 /hpf (0-5) H 11/22/22 01:00 Urine RBC (Auto) 0-4 /hpf (0-4) 11/22/22 01:00 U Hyaline Cast (Auto) 1-5 /lpf (0-5) 11/22/22 01:00 U Epithel Cells (Auto) 5-10 /lpf (0-5) H 11/22/22 01:00 Urine Bacteria (Auto) 4+ (Negative) H 11/22/22 01:00 SARS-CoV-2, RNA, NAAT NEGATIVE (NEGATIVE) 11/21/22 21:40 Impressions Duplex Scan Lower Extremity Artery 11/21/22 17:36 ULTRASOUND RIGHT LOWER EXTREMITY ARTERIAL CLINICAL HISTORY: Right leg pain. COMPARISON STUDY: No priors. TECHNIQUE: Real-time grayscale and color Doppler sonography of the arteries of the right lower extremity is performed from the popliteal artery to the foot. The patient declined to remove their pants and the common femoral/superficial femoral arteries could not be evaluated. FINDINGS: There is atherosclerotic plaque throughout the visualized lower extremities arteries. The popliteal artery is patent with normal arterial waveforms and velocities measuring up to 47 cm/s. There is three-vessel runoff to the foot. Velocities in the calf arteries measure up to 88 cm/s. Normal Doppler waveforms are shown within the calf arteries. The dorsalis pedis artery is patent with velocities measuring up to 25 cm/s. IMPRESSION: 1. Atherosclerotic plaque with no sonographic evidence of high-grade stenosis or focal vessel cut off in the popliteal or calf arteries. 2. The common femoral and superficial femoral arteries were not assessed as the patient declined to remove their pants. Electronically signed by: Steven Marcus M.D. 11/21/2022 6:58 PM Femur X-Ray 11/21/22 22:30 XR femur RT 2V routine CLINICAL HISTORY: pain TECHNIQUE: 2 radiographic views of the right femur were obtained. Comparison: None available at the time of this dictation. FINDINGS: Exam is limited by patient positioning. Within these limits, no acute fracture is seen. Degenerative changes are seen in the hip and knee joints. Vascular calcifications are noted. IMPRESSION: Degenerative changes without evidence of acute bony injury. ACT 112: Negative or not required by law. Electronically signed by: Hans Wheeler M.D. 11/22/2022 9:08 AM Tibia/Fibula X-Ray 11/21/22 22:30 XR tibia fibula RT 2V CLINICAL HISTORY: pain TECHNIQUE: 2 radiographic views of the right leg were obtained. Comparison: Comparison is made to right femur radiograph 11/21/2022 FINDINGS: There is no evidence of an acute fracture. Osteophyte formation and joint space narrowing is seen most prominent in the Vascular calcifications are seen. IMPRESSION: No evidence of acute osseous injury. ACT 112: Negative or not required by law. Electronically signed by: Hans Wheeler M.D. 11/22/2022 10:04 AM Ankle X-Ray 11/22/22 13:54 XR ankle RT min 3V routine, XR foot RT min 3V routine CLINICAL HISTORY: heel pain, r/o fracture TECHNIQUE: 3 views of the right ankle and 3 views of the right foot were obtained. Comparison: None available at the time of this dictation. FINDINGS: No acute fractures are present. Plantar and Achilles enthesophytes are seen. The ankle mortise is intact. Vascular calcifications are seen. IMPRESSION: Degenerative changes without evidence of acute fractures. ACT 112: Negative or not required by law. Electronically signed by: Hans Wheeler M.D. 11/22/2022 6:58 PM Foot X-Ray 11/22/22 13:54 XR ankle RT min 3V routine, XR foot RT min 3V routine CLINICAL HISTORY: heel pain, r/o fracture TECHNIQUE: 3 views of the right ankle and 3 views of the right foot were obtained. Comparison: None available at the time of this dictation. FINDINGS: No acute fractures are present. Plantar and Achilles enthesophytes are seen. The ankle mortise is intact. Vascular calcifications are seen.
[2022-11-24] MEDS: WARFARIN SOD 5 MG TAB PO SCH (15:55)
[2022-11-25] MEDS: SODIUM CHLORIDE 0.9% 1000ML 1,000 ML IV SCH ×3 (04:05→20:04)
[2022-11-25 07:00] LABS: INR 1.6 (0.9-1.1); Prothrombin Time 16.7 Seconds (9.0-12.0)
[2022-11-25] MEDS: SERTRALINE HCL 50 MG TABLET PO SCH (08:50)
[2022-11-25] MEDS: RASPBERRY SYRUP 5 ML UDP PO SCH (08:50)
[2022-11-25] MEDS: ADVANCED PROBIOTIC 1250 MG CAPSULE PO SCH (08:50)
[2022-11-25] MEDS: VANCOMYCIN HCL 125 MG/2.5ML SOLN PO SCH (08:53)
[2022-11-25] MEDS: MIDODRINE HCL 2.5 MG TAB PO SCH ×2 (11:27→16:09)
--- NOTE | 2022-11-25 14:16 | Hospitalist Progress Note ---
Date of Service November 25, 2022 Assessment & Plan (1) Leg pain, right: (2) Ambulatory dysfunction: (3) Atrial fibrillation: (4) History of pulmonary embolism: (5) CKD (chronic kidney disease), stage III: (6) Hypertension: (7) Chronic anemia: Plan: FINAL ASSESSMENT AND PLAN as follows : Dizziness, weakness, secondary to orthostatic hypotension Orthostatic positive today again; dizziness on standing. Despite aggressive fluid resuscitation; patient continues to have orthostatic hypotension. Will initiate low-dose midodrine. Continue to hold metoprolol Asymptomatic bacteriuria: history urinary retention with chronic indwelling Blanchard catheter, prostate cancer status post Lupron Rx Urine culture positive. Patient denies any fever, chills or abdominal pain. Leukocytosis absent Hold antibiotics for now. RLE pain rule out bony injury -- Femur, Tib/Fib xray: no acute Fx Foot Xray: No acute fracture -- pain control with PRN Tramadol hx A-fib/PE on Coumadin -- INR subtherapeutic Repeat tomorrow --Continue Coumadin --Metoprolol on hold in light of orthostatic hypotension chronic anemia, hemoglobin at baseline chronic cognitive impairment, patient currently mentating well functional disability, patient does not feel can care for him anymore at home. Recent C. difficile status post Rx Anxiety/mood disorder, patient denies suicidality, recent sertraline Rx outpatient past tobacco abuse PT OT evalrecommend rehab. Social service re: placement DVT prophylaxis. Coumadin INR goal between 2 and 3 DNR as per patient's prior wishes. Admission and Anticipated Discharge Date Admission Date: November 21, 2022 Subjective Patient seen and examined at bedside. He is sitting up on the bed; not in any distress. He denies any dizziness. He denies any fever, chills, chest pain or abdominal pain. Orthostatic positive today as well. Review of Systems Review of Systems: All systems reviewed & are unremarkable except as noted in Subjective Physical Exam Physical Exam: General- oriented x 3, not in distress, speaks in sentences with no effort or accessory muscle use Eyes- anicteric Neck- no JVD Lungs- clear breath sounds bilaterally, no rales/wheezes Heart- normal rate, regular rhythm; no murmurs Abdomen- normal bowel sounds, nondistended, soft, nontender Blanchard catheter in place, clear urine Extremities- no pretibial edema, no calf tenderness Neuro- alert, oriented x 3; no gross focal neurologic deficits Skin- warm & dry Results & Data Results & Data ([facility]) Vital Signs (Past 12 Hours) Vital Signs Temp Pulse Pulse Resp BP Pulse Ox O2 Del Method 11/25/22 11:24 36.6 C 75 16 119/70 96 Room Air 11/25/22 08:45 Room Air 11/25/22 07:21 36.8 C 77 16 124/70 96 Room Air 11/25/22 07:08 69 11/25/22 04:00 36.5 C 73 18 109/61 97 Room Air
[2022-11-25] MEDS: WARFARIN SOD 5 MG TAB PO SCH (16:08)
[2022-11-25] MEDS ORDERED: POLYETHYLENE (MIRALAX) 17 GM PACK PO STA (22:15)
[2022-11-25] MEDS ORDERED: POLYETHYLENE (MIRALAX) 17 GM PACK PO PRN (22:15)
[2022-11-25] MEDS: DOCUSATE SODIUM/SENNA 50/8.6MG TAB PO SCH (22:45)
[2022-11-26] MEDS: SODIUM CHLORIDE 0.9% 1000ML 1,000 ML IV SCH (04:01)
[2022-11-26] MEDS: SERTRALINE HCL 50 MG TABLET PO SCH (07:28)
[2022-11-26] MEDS: ADVANCED PROBIOTIC 1250 MG CAPSULE PO SCH (07:28)
[2022-11-26] MEDS: MIDODRINE HCL 2.5 MG TAB PO SCH ×3 (07:29→16:38)
[2022-11-26] MEDS: DOCUSATE SODIUM/SENNA 50/8.6MG TAB PO SCH (07:29)
[2022-11-26 09:03] LABS: Basophils # (auto) 0.05 K/uL (0-0.2); Basophils % (auto) 0.7 %; Eosinophils # (auto) 0.18 K/uL (0-0.50); Eosinophils % (auto) 2.7 %; Hemoglobin 10.6 g/dl (14.0-18.0); Immature Granulocytes # (auto) 0.02 K/uL (0.01-0.20); Immature Granulocytes % (auto) 0.3 %; Lymphocytes # (auto) 1.58 K/uL (1.2-3.4); Lymphocytes % (auto) 23.3 %; Mean Corpuscular Hemoglobin 31.5 pg (25.0-34.0); Mean Corpuscular Hgb Conc 34.2 g/dL (32.0-36.0); Mean Corpuscular Volume 92.3 fL (80.0-100.0); Mean Platelet Volume 10.4 fL (9.4-12.4); Monocytes # (auto) 0.55 K/uL (0.11-0.59); Monocytes % (auto) 8.1 %; Neutrophils # (auto) 4.41 K/uL (1.40-6.50); Neutrophils % (auto) 64.9 %; Platelet Count 188 K/uL (130-400); RDW Coefficient of Variation 13.4 % (11.5-14.5); RDW Standard Deviation 45.1 fL (36.4-46.3); Red Blood Count 3.36 M/uL (4.70-6.10); White Blood Count 6.79 K/ul (4.8-10.8)
[2022-11-26 09:19] LABS: BUN Creatinine Ratio 12.4 (10-20); Calcium 8.5 mg/dl (8.5-10.1); Creatinine Clr Calc Pharmacy 56.3 ml/min; Est GFR (African American) 87.9 ml/min; Est GFR (Non-African American) 75.8 ml/min
[2022-11-26 09:28] LABS: Prothrombin Time 20.3 Seconds (9.0-12.0)
--- NOTE | 2022-11-26 11:49 | Hospitalist Progress Note ---
Date of Service November 26, 2022 Assessment & Plan (1) Leg pain, right: (2) Ambulatory dysfunction: (3) Atrial fibrillation: (4) History of pulmonary embolism: (5) CKD (chronic kidney disease), stage III: (6) Hypertension: (7) Chronic anemia: Plan: FINAL ASSESSMENT AND PLAN as follows : Dizziness, weakness, secondary to orthostatic hypotension Orthostatic vitals improved today with addition of midodrine. Continue current dose of midodrine. Will discontinue IV fluids. Asymptomatic bacteriuria: history urinary retention with chronic indwelling Blanchard catheter, prostate cancer status post Lupron Rx Urine culture positive. Patient denies any fever, chills or abdominal pain. Leukocytosis absent Hold antibiotics for now. RLE pain rule out bony injury -- Femur, Tib/Fib xray: no acute Fx Foot Xray: No acute fracture -- pain control with PRN Tramadol hx A-fib/PE on Coumadin -- INR therapeutic Repeat tomorrow --Continue Coumadin --Metoprolol on hold in light of orthostatic hypotension chronic anemia, hemoglobin at baseline chronic cognitive impairment, patient currently mentating well functional disability, patient does not feel can care for him anymore at home. Recent C. difficile status post Rx Anxiety/mood disorder, patient denies suicidality, recent sertraline Rx outpatient past tobacco abuse PT OT evalrecommend rehab. Social service re: placement DVT prophylaxis. Coumadin INR goal between 2 and 3 DNR as per patient's prior wishes. Admission and Anticipated Discharge Date Admission Date: November 21, 2022 Subjective Patient seen and examined at bedside. He is comfortably sitting up on the bed; not in distress. He denies any fever, chills, chest pain or shortness of breath. Review of Systems Review of Systems: All systems reviewed & are unremarkable except as noted in Subjective Physical Exam Physical Exam: General- oriented x 3, not in distress, speaks in sentences with no effort or accessory muscle use Eyes- anicteric Neck- no JVD Lungs- clear breath sounds bilaterally, no rales/wheezes Heart- normal rate, regular rhythm; no murmurs Abdomen- normal bowel sounds, nondistended, soft, nontender Blanchard catheter in place, clear urine Extremities- no pretibial edema, no calf tenderness Neuro- alert, oriented x 3; no gross focal neurologic deficits Skin- warm & dry Results & Data Results & Data Vital Signs (Past 12 Hours) Vital Signs Temp Pulse Resp BP Pulse Ox O2 Del Method 11/26/22 03:22 37 C 64 18 109/59 L 97 Room Air Laboratory Results Laboratory Results WBC 6.79 K/ul (4.8-10.8) 11/26/22 08:31 RBC 3.36 M/uL (4.70-6.10) L 11/26/22 08:31 Hgb 10.6 g/dl (14.0-18.0) L 11/26/22 08:31 Hct 31.0 % (42.0-52.0) L 11/26/22 08:31 MCV 92.3 fL (80.0-100.0) 11/26/22 08:31 MCH 31.5 pg (25.0-34.0) 11/26/22 08:31 MCHC 34.2 g/dL (32.0-36.0) 11/26/22 08:31 RDW Std Deviation 45.1 fL (36.4-46.3) 11/26/22 08:31 RDW Coeff of Sangeetha 13.4 % (11.5-14.5) 11/26/22 08:31 Plt Count 188 K/uL (130-400) 11/26/22 08:31 MPV 10.4 fL (9.4-12.4) 11/26/22 08:31 Immature Gran % (Auto) 0.3 % 11/26/22 08:31 Neut % (Auto) 64.9 % 11/26/22 08:31 Lymph % (Auto) 23.3 % 11/26/22 08:31 [place] % (Auto) 8.1 % 11/26/22 08:31 Eos % (Auto) 2.7 % 11/26/22 08:31 Baso % (Auto) 0.7 % 11/26/22 08:31 Neut # (Auto) 4.41 K/uL (1.40-6.50) 11/26/22 08:31 Lymph # (Auto) 1.58 K/uL (1.2-3.4) 11/26/22 08:31 [place] # (Auto) 0.55 K/uL (0.11-0.59) 11/26/22 08:31 Eos # (Auto) 0.18 K/uL (0-0.50) 11/26/22 08:31 Baso # (Auto) 0.05 K/uL (0-0.2) 11/26/22 08:31 Immature Gran # (Auto) 0.02 K/uL (0.01-0.20) 11/26/22 08:31 PT 20.3 Seconds (9.0-12.0) H 11/26/22 08:31 INR 2.0 (0.9-1.1) H 11/26/22 08:31 APTT 40.1 Seconds (21.0-31.0) H 11/21/22 17:53 PTT Ratio 1.5 11/21/22 17:53 Sodium 138 mmol/L (136-145) 11/26/22 08:31 Potassium 4.0 mmol/L (3.5-5.1) 11/26/22 08:31 Chloride 108 mmol/L (98-107) H 11/26/22 08:31 Carbon Dioxide 25 mmol/L (21-32) 11/26/22 08:31 Anion Gap 5 (3-11) 11/26/22 08:31 BUN 11 mg/dl (6-23) 11/26/22 08:31 Creatinine 0.89 mg/dl (0.6-1.4) 11/26/22 08:31 Est Cr Clr Drug Dosing 56.3 ml/min 11/26/22 08:31 Est GFR ( Amer) 87.9 ml/min 11/26/22 08:31 Est GFR (Non-Af Amer) 75.8 ml/min 11/26/22 08:31 BUN/Creatinine Ratio 12.4 (10-20) 11/26/22 08:31 Glucose 123 mg/dl (70-99(Fasting)) H 11/26/22 08:31 Lactate 0.9 mmol/L (0.4-2.0) 11/21/22 23:09 Calcium 8.5 mg/dl (8.5-10.1) 11/26/22 08:31 Magnesium 2.1 mg/dl (1.7-2.4) 11/21/22 17:53 Total Bilirubin 0.7 mg/dl (0.2-1.0) 11/21/22 17:53 AST 16 U/L (13-39) 11/21/22 17:53 ALT 9 U/L (7-52) 11/21/22 17:53 Alkaline Phosphatase 64 U/L (34-104) 11/21/22 17:53 Total Creatine Kinase 32 U/L (30-223) 11/21/22 17:53 Total Protein 7.4 gm/dl (6.0-8.3) 11/21/22 17:53 Albumin 3.9 gm/dl (3.4-5.0) 11/21/22 17:53 Globulin 3.5 gm/dl (2.5-4.0) 11/21/22 17:53 Albumin/Globulin Ratio 1.1 (0.9-2) 11/21/22 17:53 TSH 2.413 uIu/ml (0.300-4.500) 11/24/22 07:17 Cortisol AM Sample 12.50 mcg/dl (6.2-22.6) 11/24/22 07:17 Urine Color Yellow 11/22/22 01:00 Urine Appearance Turbid (Clear) A 11/22/22 01:00 Urine pH 8.0 (4.5-7.5) H 11/22/22 01:00 Ur Specific [place] 1.014 (1.000-1.030) 11/22/22 01:00 Urine Protein 1+ (Negative) H 11/22/22 01:00 Urine Glucose (UA) Negative (Negative) 11/22/22 01:00 Urine Ketones Negative (Negative) 11/22/22 01:00 Urine Blood Trace (Negative) H 11/22/22 01:00 Urine Nitrite Positive (Negative) A 11/22/22 01:00 Urine Bilirubin Negative (Negative) 11/22/22 01:00 Urine Urobilinogen Negative (Negative) 11/22/22 01:00 Ur Leukocyte Esterase 3+ (Negative) H 11/22/22 01:00 Urine WBC (Auto) >30 /hpf (0-5) H 11/22/22 01:00 Urine RBC (Auto) 0-4 /hpf (0-4) 11/22/22 01:00 U Hyaline Cast (Auto) 1-5 /lpf (0-5) 11/22/22 01:00 U Epithel Cells (Auto) 5-10 /lpf (0-5) H 11/22/22 01:00 Urine Bacteria (Auto) 4+ (Negative) H 11/22/22 01:00 SARS-CoV-2, RNA, NAAT NEGATIVE (NEGATIVE) 11/21/22 21:40 Impressions Duplex Scan Lower Extremity Artery 11/21/22 17:36 ULTRASOUND RIGHT LOWER EXTREMITY ARTERIAL CLINICAL HISTORY: Right leg pain. COMPARISON STUDY: No priors. TECHNIQUE: Real-time grayscale and color Doppler sonography of the arteries of the right lower extremity is performed from the popliteal artery to the foot. The patient declined to remove their pants and the common femoral/superficial femoral arteries could not be evaluated. FINDINGS: There is atherosclerotic plaque throughout the visualized lower extremities arteries. The popliteal artery is patent with normal arterial waveforms and velocities measuring up to 47 cm/s. There is three-vessel runoff to the foot. Velocities in the calf arteries measure up to 88 cm/s. Normal Doppler waveforms are shown within the calf arteries. The dorsalis pedis artery is patent with velocities measuring up to 25 cm/s. IMPRESSION: 1. Atherosclerotic plaque with no sonographic evidence of high-grade stenosis or focal vessel cut off in the popliteal or calf arteries. 2. The common femoral and superficial femoral arteries were not assessed as the patient declined to remove their pants. Electronically signed by: Steven Marcus M.D. 11/21/2022 6:58 PM Femur X-Ray 11/21/22 22:30 XR femur RT 2V routine CLINICAL HISTORY: pain TECHNIQUE: 2 radiographic views of the right femur were obtained. Comparison: None available at the time of this dictation. FINDINGS: Exam is limited by patient positioning. Within these limits, no acute fracture is seen. Degenerative changes are seen in the hip and knee joints. Vascular calcifications are noted. IMPRESSION: Degenerative changes without evidence of acute bony injury. ACT 112: Negative or not required by law. Electronically signed by: Hans Wheeler M.D. 11/22/2022 9:08 AM Tibia/Fibula X-Ray 11/21/22 22:30 XR tibia fibula RT 2V CLINICAL HISTORY: pain TECHNIQUE: 2 radiographic views of the right leg were obtained. Comparison: Comparison is made to right femur radiograph 11/21/2022 FINDINGS: There is no evidence of an acute fracture. Osteophyte formation and joint space narrowing is seen most prominent in the Vascular calcifications are seen. IMPRESSION: No evidence of acute osseous injury. ACT 112: Negative or not required by law. Electronically signed by: Hans Wheeler M.D. 11/22/2022 10:04 AM Ankle X-Ray 11/22/22 13:54 XR ankle RT min 3V routine, XR foot RT min 3V routine CLINICAL HISTORY: heel pain, r/o fracture TECHNIQUE: 3 views of the right ankle and 3 views of the right foot were obtained. Comparison: None available at the time of this dictation. FINDINGS: No acute fractures are present. Plantar and Achilles enthesophytes are seen. The ankle mortise is intact. Vascular calcifications are seen. IMPRESSION: Degenerative changes without evidence of acute fractures. ACT 112: Negative or not required by law. Electronically signed by: Hans Wheeler M.D. 11/22/2022 6:58 PM Foot X-Ray 11/22/22 13:54 XR ankle RT min 3V routine, XR foot RT min 3V routine CLINICAL HISTORY: heel pain, r/o fracture TECHNIQUE: 3 views of the right ankle and 3 views of the right foot were obtained. Comparison: None available at the time of this dictation. FINDINGS: No acute fractures are present. Plantar and Achilles enthesophytes are seen. The ankle mortise is intact. Vascular calcifications are seen.
[2022-11-26] MEDS: WARFARIN SOD 5 MG TAB PO SCH (16:38)
[2022-11-27] MEDS ORDERED: ALUMINUM/MAGNESIUM/SIMETH (MAALOX MAX) 30 ML UDC PO PRN (01:25)
[2022-11-27 08:04] LABS: Prothrombin Time 20.7 Seconds (9.0-12.0)
[2022-11-27] MEDS: MIDODRINE HCL 2.5 MG TAB PO SCH ×2 (10:59→11:03)
[2022-11-27] MEDS: SERTRALINE HCL 50 MG TABLET PO SCH (11:00)
[2022-11-27] MEDS: DOCUSATE SODIUM/SENNA 50/8.6MG TAB PO SCH (11:00)
[2022-11-27] MEDS: ADVANCED PROBIOTIC 1250 MG CAPSULE PO SCH (11:01)
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
== END 2022-11-27 16:40 | DRG 556 ==
LOC: ED 17:23 → 2W 22:32 → SUATTDRO 22:32 → 2W 23:15